=== PATIENT | male | born 1970 | race Caucasian/White ===

== ENCOUNTER 2016-04-04 08:47 | Emergency (ER) | payer BC ==
[2016-04-04] MEDS ORDERED: HYDROmorphone 1 MG/ML 1 ML SYRINGE IVP STA (09:00)
[2016-04-04] MEDS ORDERED: SODIUM CHLORIDE 0.9% 1,000 ML IV STA (09:00)
[2016-04-04] MEDS ORDERED: ONDANSETRON 4 MG/2 ML VIAL IVP STA (09:00)
--- NOTE | 2016-04-04 09:03 | ED ---
General Adult HPI - General Chief complaint: Abdominal Pain Stated complaint: ABDOMINAL PAIN Time Seen by Provider: 04/04/16 08:54 Source: patient, RN notes reviewed, old records reviewed Mode of arrival: ambulatory Limitations: no limitations - History of Present Illness Initial comments: Patient 46-year-old male significant past medical history for diverticulitis, New's procedure and reversal, who presents emergency room today with a chief complaint of abdominal pain off and on over the last 5 weeks. Patient does admit to symptoms of feeling nauseated. States had diarrhea. States appetites been decreased but is trying to drink fluids. Admits to pain going across the lower abdomen that is crampy in nature worsened left lower quadrant. Patient currently rates it a 5/10. Admits to signs of blood in his stool. States bright red color off and on over the last 5 weeks. Patient states been trying follow-up with his family doctor but has been unable to see him due to the holidays. Patient does admit that he was seen here for the same complaint approximately 3 weeks ago. Patient states that seems like things just aren't getting any better. Patient denies any recent fever, chills, shortness of breath , chest pain, back pain, vomiting, numbness or tingling, dysuria or hematuria, constipation, headaches or visual changes, or any other complaints. - Related Data Previous Rx's Medication Instructions Recorded Ondansetron Odt [Zofran ODT] 4 mg PO Q8HR PRN #15 tab 03/21/16 Allergies Allergy/AdvReac Type Severity Reaction Status Date / Time No Known Allergies Allergy Verified 04/04/16 08:52 Review of Systems ROS Statement: Those systems with pertinent positive or pertinent negative responses have been documented in the HPI. ROS Other: All systems not noted in ROS Statement are negative. Past Medical History Past Medical History: Blood Disorder, GI Bleed, Musculoskeletal Disorder, Pulmonary Embolus (PE) Additional Past Medical History / Comment(s): perforated diverticuli with bowel resection/colostomy and recent colostomy reversal- pt still has shaniqua and [address], stoma ulcers, hereditary spherocytosis, herniated disc with surgery-less low back pain and less R leg sciatica since surgery. History of Any Multi-Drug Resistant Organisms: None Reported Past Surgical History: Appendectomy, Back Surgery, Bowel Resection, Cholecystectomy, Orthopedic Surgery Additional Past Surgical History / Comment(s): colonoscopies, bowel resection and colostomy due to ruptured diverticuli, 06/25/15 open colostomy reversal, splenectomy, 2014 lumbar laminectomy/discectomy L5-S1, right rotator cuff, left knee arthroscopy Past Anesthesia/Blood Transfusion Reactions: No Reported Reaction Additional Past Anesthesia/Blood Transfusion Reaction / Comment(s): Pt has received blood without reaction. Past Psychological History: No Psychological Hx Reported Additional Psychological History / Comment(s): Pt resides with his spouse and children. He is independent. He uses no assistive device. He does not currently drive due to recent surgery. Smoking Status: Never smoker Past Alcohol Use History: Occasional Past Drug Use History: None Reported - Past Family History Father Family Medical History: Blood Disorder Additional Family Medical History / Comment(s): Father had spherocytosis. He had leg ulcers and at age 44 yrs. Mother Additional Family Medical History / Comment(s): Mother has colitis. She is living. Sister(s) Family Medical History: Blood Disorder, Deep Vein Thrombosis (DVT) Additional Family Medical History / Comment(s): Sister had blood clot and was recently found to have elevated factor 8 General Exam - General Exam Comments Initial Comments: General: The patient is awake and alert, in no distress, and does not appear acutely ill. Eye: Pupils are equal, round and reactive to light, extra-ocular movements are intact. No nystagmus. There is normal conjunctiva bilaterally. No signs of icterus. Ears, nose, mouth and throat: There are moist mucous membranes and no oral lesions. Neck: The neck is supple, there is no tenderness or JVD. Cardiovascular: There is a regular rate and rhythm. No murmur, rub or gallop is appreciated. Respiratory: Lungs are clear to auscultation, respirations are non-labored, breath sounds are equal. No wheezes, stridor, rales, or rhonchi. Gastrointestinal: Normal appearance of the abdomen. Bowel sounds are normal. Patient does have tenderness left lower quadrant. No rebound tenderness. No guarding. No CVA tenderness. Musculoskeletal: Normal ROM, no tenderness. Strength 5/5. Sensation intact. Pulses equal bilaterally 2+. Neurological: A&O x 3. CN II-XII intact, There are no obvious motor or sensory deficits. Coordination appears grossly intact. Speech is normal. Skin: Skin is warm and dry and no rashes or lesions are noted. Psychiatric: Cooperative, appropriate mood & affect, normal judgment. Limitations: no limitations Course Vital Signs 04/04/16 08:48 Temperature 97.0 F L Pulse Rate 87 Respiratory 18 Rate Blood Pressure 134/78 O2 Sat by Pulse 98 Oximetry Medical Decision Making - Medical Decision Making Patient reexamined at this time shows no signs of distress. He is resting comfortably in the stretcher. His labs been reviewed and also with recent visits the hospital reviewed. Labs are unremarkable. Options were discussed patient about CT of the abdomen is states that the symptoms have been consistent over the last 5 weeks. Does have a history of diverticulitis. States he feels like something is wrong. Risk versus benefits were discussed. Patient states he would like to have CT performed. CAT scan was performed here in the emergency room which shows no acute findings for his symptoms. Was discussed with patient about following up with his family doctor and surgeon. Was discussed about following up for colonoscopy. At this time patient's vitals are stable. Labs stable. Patient will be discharged home advised follow -up. Advised return if any symptoms increase or worsen. - Lab Data Result diagrams: 04/04/16 09:08 04/04/16 09:08 Lab Results 04/04/16 04/04/16 04/04/16 Range/Units 09:08 09:08 09:08 WBC 6.5 (3.8-10.6) k/uL RBC 5.64 (4.30-5.90) m/uL Hgb 17.8 H (13.0-17.5) gm/dL Hct 46.8 (39.0-53.0) % MCV 83.0 (80.0-100.0) fL MCH 31.5 (25.0-35.0) pg MCHC 38.0 H (31.0-37.0) g/dL RDW 13.6 (11.5-15.5) % Plt Count 391 (150-450) k/uL Neutrophils % 64 % Lymphocytes % 19 % Monocytes % 9 % Eosinophils % 4 % Basophils % 1 % Neutrophils # 4.2 (1.3-7.7) k/uL Lymphocytes # 1.2 (1.0-4.8) k/uL Monocytes # 0.6 (0-1.0) k/uL Eosinophils # 0.2 (0-0.7) k/uL Basophils # 0.1 (0-0.2) k/uL Hyperchromasia Marked Sodium 144 (137-145) mmol/L Potassium 4.4 (3.5-5.1) mmol/L Chloride 104 (98-107) mmol/L Carbon Dioxide 27 (22-30) mmol/L Anion Gap 13 mmol/L BUN 15 (9-20) mg/dL Creatinine 0.89 (0.66-1.25) mg/dL Est GFR (MDRD) Af Amer >60 (>60 ml/min/1.73 sqM) Est GFR (MDRD) Non-Af >60 (>60 ml/min/1.73 sqM) Glucose 93 (74-99) mg/dL Plasma Lactic Acid Matt 1.1 (0.7-2.0) mmol/L Calcium 9.8 (8.4-10.2) mg/dL Total Bilirubin 5.1 H (0.2-1.3) mg/dL AST 28 (17-59) U/L ALT 40 (21-72) U/L Alkaline Phosphatase 66 (38-126) U/L Total Protein 8.2 (6.3-8.2) g/dL Albumin 4.8 (3.5-5.0) g/dL Amylase 52 (30-110) U/L Lipase 41 (23-300) U/L Urine Color Urine Appearance (Clear) Urine pH (5.0-8.0) Ur Specific [place] (1.001-1.035) Urine Protein (Negative) Urine Glucose (UA) (Negative) Urine Ketones (Negative) Urine Blood (Negative) Urine Nitrate (Negative) Urine Bilirubin (Negative) Urine Urobilinogen (<2.0) mg/dL Ur Leukocyte Esterase (Negative) 04/04/16 Range/Units 09:44 WBC (3.8-10.6) k/uL RBC (4.30-5.90) m/uL Hgb (13.0-17.5) gm/dL Hct (39.0-53.0) % MCV (80.0-100.0) fL MCH (25.0-35.0) pg MCHC (31.0-37.0) g/dL RDW (11.5-15.5) % Plt Count (150-450) k/uL Neutrophils % % Lymphocytes % % Monocytes % % Eosinophils % % Basophils % % Neutrophils # (1.3-7.7) k/uL Lymphocytes # (1.0-4.8) k/uL Monocytes # (0-1.0) k/uL Eosinophils # (0-0.7) k/uL Basophils # (0-0.2) k/uL Hyperchromasia Sodium (137-145) mmol/L Potassium (3.5-5.1) mmol/L Chloride (98-107) mmol/L Carbon Dioxide (22-30) mmol/L Anion Gap mmol/L BUN (9-20) mg/dL Creatinine (0.66-1.25) mg/dL Est GFR (MDRD) Af Amer (>60 ml/min/1.73 sqM) Est GFR (MDRD) Non-Af (>60 ml/min/1.73 sqM) Glucose (74-99) mg/dL Plasma Lactic Acid Matt (0.7-2.0) mmol/L Calcium (8.4-10.2) mg/dL Total Bilirubin (0.2-1.3) mg/dL AST (17-59) U/L ALT (21-72) U/L Alkaline Phosphatase (38-126) U/L Total Protein (6.3-8.2) g/dL Albumin (3.5-5.0) g/dL Amylase (30-110) U/L Lipase (23-300) U/L Urine Color Light Yellow Urine Appearance Clear (Clear) Urine pH 7.5 (5.0-8.0) Ur Specific [place] 1.006 (1.001-1.035) Urine Protein Negative (Negative) Urine Glucose (UA) Negative (Negative) Urine Ketones Negative (Negative) Urine Blood Negative (Negative) Urine Nitrate Negative (Negative) Urine Bilirubin Negative (Negative) Urine Urobilinogen <2.0 (<2.0) mg/dL Ur Leukocyte Esterase Negative (Negative) Disposition Clinical Impression: Abdominal pain Disposition: HOME SELF-CARE Condition: Good Instructions: Abdominal Pain (ED) Additional Instructions: Please follow-up the family doctor and surgeon as discussed. Please return here to emergency room if any symptoms increase or worsen or for any other concerns. Time of Disposition: 10:55
[2016-04-04 09:46] LABS: ALT 40 U/L (21-72); AST 28 U/L (17-59); Alkaline Phosphatase 66 U/L (38-126); Amylase 52 U/L (30-110); Anion Gap 13 mmol/L; Blood Urea Nitrogen 15 mg/dL (9-20); Calcium 9.8 mg/dL (8.4-10.2); Carbon Dioxide 27 mmol/L (22-30); Chloride 104 mmol/L (98-107); Glucose 93 mg/dL (74-99); Non-African American GFR(MDRD) >60 (>60 ml/min/1.73 sqM); Potassium 4.4 mmol/L (3.5-5.1); Sodium 144 mmol/L (137-145); Total Bilirubin 5.1 mg/dL (0.2-1.3); Total Protein 8.2 g/dL (6.3-8.2)
[2016-04-04 09:50] LABS: Basophils # (A) 0.1 k/uL (0-0.2); Basophils % (A) 1 %; CH 32.9; CHCM 39.7; Eosinophils # (A) 0.2 k/uL (0-0.7); Eosinophils % (A) 4 %; HCT 46.8 % (39.0-53.0); HGB 17.8 gm/dL (13.0-17.5); Hyperchromasia Marked; Luc # (Auto) 0.24; Luc % (Auto) 4; Lymphocytes # (A) 1.2 k/uL (1.0-4.8); Lymphocytes % (A) 19 %; MCH 31.5 pg (25.0-35.0); Mean Platelet Volume 6.6; Monocytes # (A) 0.6 k/uL (0-1.0); Monocytes % (A) 9 %; Neutrophils # (A) 4.2 k/uL (1.3-7.7); Neutrophils % (A) 64 %; RBC 5.64 m/uL (4.30-5.90); RDW 13.6 % (11.5-15.5); WBC 6.5 k/uL (3.8-10.6); WBC (Perox) 7.51
--- NOTE | 2016-04-04 09:52 | XR ---
EXAMINATION TYPE: XR KUB DATE OF EXAM: 04/04/2016 9:45 AM CLINICAL HISTORY: History of bowel resection presents with lower abdominal pain TECHNIQUE: 2 upright KUB images of the abdomen are obtained. COMPARISON: Abdominal x-ray March 21, 2016. FINDINGS: Gas is seen in nondistended stomach. Scattered gas is seen in non-distended small bowel lo ops. Gas and fecal material is seen in non-distended colon and rectum. Cholecystectomy clips are red emonstrated. There is no pneumoperitoneum or suspicious calcifications seen. Lung bases are clear. Os seous structures are intact. IMPRESSION: Overall nonobstructive bowel gas pattern.
[2016-04-04 09:54] LABS: Appearance,Urine Clear (Clear); Bilirubin,Urine Negative (Negative); Glucose,Urine (UA) Negative (Negative); Ketones,Urine Negative (Negative); Leukocyte Esterase,Urine Negative (Negative); Nitrite,Urine Negative (Negative); PH, Urine 7.5 (5.0-8.0); Protein,Urine Negative (Negative); Specific Gravity,Urine 1.006 (1.001-1.035); UA Billing (MACRO vs. MICRO) CHEM; Urobilinogen,Urine <2.0 mg/dL (<2.0)
[2016-04-04] MEDS ORDERED: RX INFO: IV CONTRAST WAS GIVEN 1 EACH MISC MISCELLANE PRN (10:03)
--- NOTE | 2016-04-04 10:53 | CT ---
EXAMINATION TYPE: CT abdomen pelvis w con DATE OF EXAM: 04/04/2016 10:30 AM COMPARISON: CT abdomen and pelvis December 18, 2015. HISTORY: History of diverticulitis presents with left lower quadrant pain Automated Exposure Control for Dose Reduction was Utilized. CONTRAST: CT scan of the abdomen and pelvis is performed without oral but with IV Contrast, patient injected w ith 100 mL of Omnipaque 300. FINDINGS: LUNG BASES: Dependent atelectatic change is present bilaterally. There is additional linear scarring or atelectasis posteriorly in the left lung base present. LIVER/GB: Cholecystectomy clips are redemonstrated. PANCREAS: No significant abnormality is seen. SPLEEN: Spleen is not visualized and likely surgically absent. ADRENALS: No significant abnormality is seen. KIDNEYS: No significant abnormality is seen. BOWEL: Evaluation of bowel is slightly suboptimal due to lack of enteric contrast. There is no signif icant small or large bowel dilatation. Surgical sutures from prior colon resection are seen in the le ft lower quadrant. There remains tortuous course at the anastomosis with a few remnant diverticula. T here is no evidence of inflammatory change at this time at this level. A few additional diverticula a re seen in the left colon without CT evidence for acute diverticulitis. PROSTATE/SEMINAL VESICLES: Occasional scattered pelvic phleboliths are seen. LYMPH NODES: No greater than 1cm abdominal or pelvic lymph nodes are appreciated. OSSEOUS STRUCTURES: No significant abnormality is seen. OTHER: There is persistent narrowneck fat-containing hernia left lateral mid abdominal wall on axial image 52. Possible spigelian type hernia though is felt slightly more medial in location. IMPRESSION: No significant new or acute finding is seen to account for patient's clinical symptoms. No CT evidence for acute diverticulitis currently.
[2016-04-04 11:09] VITALS: BP 118/70; PULSE 76; RESP 16; TEMP 97.9
== END 2016-04-04 11:09 | disposition home or self-care (01) ==
LOC: EC 08:47
DX: R10.9 Unspecified abdominal pain (principal); R11.0 Nausea; R19.7 Diarrhea, unspecified
CPT/HCPCS: 99285; 96374; 96375; 96361; 36415; 80053; 82150; 83605; 83690; 85025; 81003; 74000; 74177; J2405; J1170; Q9967

== ENCOUNTER 2017-02-13 10:11 | Day surgery (SDC) | payer BC ==
[2017-02-10 16:34] VITALS: BMI 25.4
[~2017-02-13 10:11] MED LIST: LACTATED RINGERS 1,000 ML IV SCH; LIDOCAINE 1% 20 ML VIAL (10MG/ML) FOR IV START INTRADERMA PRN
[2017-02-13 10:56] VITALS: TEMP 97.2
[2017-02-13] MEDS ORDERED: PROPOFOL 10 MG/ML 20 ML VIAL IV ONE (11:10)
--- NOTE | 2017-02-13 11:31 | P.PCN ---
Date of Procedure: 02/13/17 Procedure(s) Performed: BRIEF HISTORY: Patient is a 47-year-old pleasant white male, scheduled for an elective colonoscopy as a part of evaluation of rectal bleeding for the last 1 year duration. The patient underwent a sigmoid colectomy with colostomy for acute diverticulitis in March of 2015 and subsequently had a reversal performed in June 2015. For the last 1 year duration his been having intermittent rectal bleeding and lately almost on a daily basis. Usually has one bowel movement daily but small amount of blood and mucus in the stool. He was treated briefly with sulfasalazine for a few weeks with no help. Last colonoscopy done by , for in June 2015 just before the there was a colostomy was normal. Because of ongoing rectal bleeding is still for colonoscopy to evaluate further. PROCEDURE PERFORMED: Colonoscopywith snare polypectomy and cautery. PREOPERATIVE DIAGNOSIS: intermittent rectal bleeding for the last 1 year duration. IV sedation per Anesthesia. PROCEDURE: After informed consent was obtained, the patient, was brought into the endoscopy unit. IV sedation was administered by Anesthesia under continuous monitoring. Digital rectal examination was normal. Initially the Olympus CF- 160 flexible video colonoscope was then inserted in the rectum, gradually advanced into the cecum without any difficulty. Careful examination was performed as the scope was gradually being withdrawn. Ileocecal valve and the appendiceal orifice were visualized and appeared normal. Prep was excellent. Mucosa of the cecum, ascending colon, transverse colon, descending colon, appeared normal. The anastomosis from the previous sigmoid resection was located at 20 cm from the anal verge and at the anastomosis there was a 5 mm polyp noted that was removed by snare polypectomy. All of the anastomosis there was erosive friability noted but no active bleeding seen. Since this appeared to be the source of bleeding I proceeded with cautery using the Gold probe and a friable mucosa was cauterized. The rest of the sigmoid colon, and rectum appeared normal. scattered left sided diverticulosis seen.Retroflexion was performed in the rectum and no lesions were seen. The patient tolerated the procedure well. IMPRESSION: Friable mucosa along the sigmoid anastomosis which probably was the source of bleeding, status post cautery as described above 5 mm polyp at the anastomosis status post polypectomy Scattered right-sided diverticulosis RECOMMENDATIONS: Findings of this examination were discussed with the patient as well as his family. He was advised to follow with the biopsy results. He' ll be seen in office in a month..
[2017-02-13 11:49] VITALS: BP 95/56; PULSE 84; RESP 18
== END 2017-02-13 12:27 | disposition home or self-care (01) ==
LOC: ORWHC2ENDO 10:11
PROVIDERS: ATTEND Internal Medicine Gastroenterology
DX: K63.5 Polyp of colon (principal); K57.30 Diverticulosis of large intestine without perforation or abscess without bleeding; Z90.49 Acquired absence of other specified parts of digestive tract; Z87.19 Personal history of other diseases of the digestive system; Z86.711 Personal history of pulmonary embolism
CPT/HCPCS: 88305; 45385; 45388; J2704

== ENCOUNTER 2017-09-25 05:54 | Day surgery (SDC) | payer BC ==
[2017-09-21 12:59] VITALS: BMI 24.7
[~2017-09-25 05:54] MED LIST changes: +DEXAMETHASONE SOD PHOSPHATE 10 MG/ML 1 ML VIAL IV ONE; +HYDROmorphone 0.5 MG/0.5 ML SYRINGE IVP PRN; -LIDOCAINE 1% 20 ML VIAL (10MG/ML) FOR IV START INTRADERMA PRN; +ONDANSETRON 4 MG/2 ML VIAL IVP ONE; +ceFAZolin IN SWFI 2 GM/20 ML SYRINGE IVP ONE
[2017-09-25] MEDS ORDERED: LIDOCAINE 1% 20 ML VIAL (10MG/ML) FOR IV START INTRADERMA ONE (06:27)
--- NOTE | 2017-09-25 07:31 | P.GSHP ---
History of Present Illness H&P Date: 09/25/17 CHIEF COMPLAINT: Ventral hernia HISTORY OF PRESENT ILLNESS: The patient is a 47-year-old male who presents with a history of swelling and pain along the abdomen from a hernia. Now he presents for surgical intervention. PAST MEDICAL HISTORY: Please see list. PAST SURGICAL HISTORY: Please see list. MEDICATIONS: Please see list. ALLERGIES: Please see list. SOCIAL HISTORY: No illicit drug use FAMILY HISTORY: No reports of Crohn disease or ulcerative colitis. REVIEW OF ORGAN SYSTEMS: CONSTITUTIONAL: No reports of fevers or chills. No reports of weight loss despite prior attempts. GI: Denies any blood in stools or constipation. PHYSICAL EXAM: VITAL SIGNS: Stable GENERAL: Well-developed pleasant male in no acute distress. HEENT: No scleral icterus. Extraocular movements grossly intact. Moist buccal mucosa. NECK: Supple without lymphadenopathy. CHEST: Unlabored respirations. Equal bilateral excursions. CARDIOVASCULAR: Regular rate and rhythm. Distal 2+ pulses. ABDOMEN: Soft, nondistended. Palpable defect of the abdomen. No peritoneal signs. MUSCULOSKELETAL: No clubbing, cyanosis, or edema. ASSESSMENT: 1. Incisional ventral hernia PLAN: 1. Recommend proceeding with a robotic with the ventral hernia repair with mesh. 2. Benefits and risks of surgical intervention was discussed including possibility of open technique. 3. DVT prophylaxis. 4. Antibiotic prophylaxis. Past Medical History Past Medical History: Blood Disorder, GI Bleed, Musculoskeletal Disorder, Pulmonary Embolus (PE) Additional Past Medical History / Comment(s): hx. perforated diverticuli with bowel resection/colostomy and colostomy reversal, hereditary spherocytosis, pulmonary embolism after colostomy reversal 2016, recent intermittent rectal bleeding, cramping History of Any Multi-Drug Resistant Organisms: None Reported Past Surgical History: Appendectomy, Back Surgery, Bowel Resection, Cholecystectomy, Orthopedic Surgery Additional Past Surgical History / Comment(s): colonoscopies, bowel resection and colostomy due to ruptured diverticuli, 06/25/15 open colostomy reversal, splenectomy, 2013 lumbar laminectomy/discectomy L5-S1, right rotator cuff, left knee arthroscopy Past Anesthesia/Blood Transfusion Reactions: No Reported Reaction Additional Past Anesthesia/Blood Transfusion Reaction / Comment(s): Pt has received blood without reaction. Smoking Status: Never smoker - Past Family History Father Family Medical History: Blood Disorder Additional Family Medical History / Comment(s): Father had spherocytosis. He had leg ulcers and at age 44 yrs. Mother Additional Family Medical History / Comment(s): Mother has colitis. She is living. Sister(s) Family Medical History: Blood Disorder, Deep Vein Thrombosis (DVT) Additional Family Medical History / Comment(s): Sister had blood clot and was recently found to have elevated factor 8 Medications and Allergies Home Medications Medication Instructions Recorded Confirmed Type No Known Home Medications 02/10/17 09/21/17 History Allergies Allergy/AdvReac Type Severity Reaction Status Date / Time No Known Allergies Allergy Verified 09/21/17 12:46 Surgical - Exam Vital Signs Temp Pulse Resp BP Pulse Ox 97.2 F L 75 16 121/78 98 09/25/17 06:14 09/25/17 06:14 09/25/17 06:14 09/25/17 06:14 09/25/17 06:14
[2017-09-25] MEDS ORDERED: ROCURONIUM BROMIDE 10 MG/ML 10 ML VIAL IV ONE (07:32)
[2017-09-25] MEDS ORDERED: PROPOFOL 10 MG/ML 20 ML VIAL IV ONE (07:32)
[2017-09-25] MEDS ORDERED: HEPARIN SODIUM,PORCINE 5,000 UNIT/ML 1 ML VIAL ONE (07:32)
[2017-09-25] MEDS ORDERED: ROPIVACAINE 5 MG/ML 30 ML VIAL ONE (07:32)
[2017-09-25] MEDS ORDERED: GLYCOPYRROLATE 0.2 MG/ML 2 ML VIAL ONE (07:32)
[2017-09-25] MEDS ORDERED: fentaNYL (PF) 50 MCG/ML 2 ML AMP ONE (07:32)
[2017-09-25] MEDS ORDERED: MIDAZOLAM 2 MG/2 ML VIAL ONE (07:32)
[2017-09-25] MEDS ORDERED: SUCCINYLCHOLINE CHLORIDE 100 MG/5 ML SYR IV ONE (07:32)
[2017-09-25] MEDS ORDERED: LIDOCAINE 1% INJ 10MG/ML (20 ML MDV) ONE (07:32)
[2017-09-25] MEDS ORDERED: ceFAZolin 1,000 MG VIAL ONE (07:32)
[2017-09-25] MEDS ORDERED: BUPIVACAINE (PF) 0.5% 30 ML VIAL SQ ONE (08:06)
--- NOTE | 2017-09-25 10:17 | P.PCN ---
Date of Procedure: 09/25/17 Preoperative Diagnosis: Incarcerated incisional hernia left lower quadrant, history of multiple abdominal procedures Postoperative Diagnosis: Same, severe intra-abdominal adhesions, incarcerated incisional hernia initial left lower abdomen Procedure(s) Performed: Robotic system lysis of adhesions over 1 hour, robotic incisional hernia repair with fascial imbrication 3 without mesh Anesthesia: GONZALES, local Surgeon: Jyoti Daniels Estimated Blood Loss (ml): 10 Pathology: none sent Condition: stable Disposition: same day Operative Findings: 1. Severe intra-abdominal adhesions with initial trochars placed along the upper abdomen then repositioned along the right lateral abdominal wall 2. Extensive lysis of adhesions over 1 hour robotic-assisted approach, mesh repair prohibited given severe reaction to foreign body 3. Console time 80 minutes
[2017-09-25 10:27] VITALS: TEMP 97.9
[2017-09-25] MEDS ORDERED: HYDROcodone/APAP 5-325MG 1 EACH TAB PO ONE (12:19)
[2017-09-25 15:43] VITALS: BP 115/68; PULSE 82; RESP 18
--- NOTE | 2017-09-26 10:54 | P.ONQ ---
Anesthesiology Proc Note - PNB - Peripheral Nerve Block Performed Bilateral Rectus Abdominis Single Time Out Performed: Yes Procedure Start Time: 11:12 Procedure Stop Time: :20 Indication: Acute Post-Operative Pain, Requested by physician Sedation Type: Sedate with meaningful contact maintained Preparation: Sterile Prep Position: Supine Needle Size: 50mm (2") Needle Gauge: 21 Technique: Ultrasound Injectate: 0.5% Ropivacaine (see comment for volume) (ropi .5% 30cc) Blood Aspirated: No Pain Paresthesia on Injection Noted: No Resistance on Injection: Normal Events: Uneventful and Well Tolerated
== END 2017-09-25 15:53 | disposition home or self-care (01) ==
LOC: OR 05:54
PROVIDERS: ATTEND Surgery Plastic and Reconstructive Surgery
DX: K43.0 Incisional hernia with obstruction, without gangrene (principal); K66.0 Peritoneal adhesions (postprocedural) (postinfection); Z86.711 Personal history of pulmonary embolism; D58.0 Hereditary spherocytosis
CPT/HCPCS: 49655; 64488; S2900; 86850; 86900; 86901

== ENCOUNTER 2017-10-04 08:23 | Observation (INO) | payer BC ==
[2017-10-04] MEDS ORDERED: HEPARIN SODIUM,PORCINE 5,000 UNIT/ML 1 ML VIAL IV ONE (08:42)
[2017-10-04] MEDS ORDERED: HEPARIN SOD,PORK IN 0.45% NACL 25,000 UNIT in 0.45% NACL 1 500ML.BAG IV SCH ×2 (08:45→10:30)
--- NOTE | 2017-10-04 08:45 | ED ---
General Adult HPI - General Chief complaint: Chest Pain Stated complaint: CHEST PAIN POST OP HX PE Time Seen by Provider: 10/04/17 08:25 Source: patient, RN notes reviewed Mode of arrival: ambulatory Limitations: no limitations - History of Present Illness Initial comments: This is a 47-year-old male who presents to the emergency department with past medical history significant for PE. Patient states he had a surgery about 7 days ago for incisional hernia. Patient states yesterday he started having some left-sided chest pain with some difficulty breathing. Patient states he woke up this morning the pain was more significant sharp in the shortness of breath was worse. Patient denies any fever chills or cough patient denies any palpitations. Patient states it's reminiscent of his previous PE. Patient denies any abdominal pain except for the surgery was done but he states that is unchanged since the surgery and it is slowly improving. Patient denies any vomiting or diarrhea. Patient denies any lightheadedness dizziness or nursing about so. Patient denies any calf pain or leg swelling. - Related Data Previous Rx's Medication Instructions Recorded HYDROcodone/APAP 5-325MG [[place] 1 tab PO Q4HR PRN 3 Days #18 tab 09/25/17 5-325] Allergies Allergy/AdvReac Type Severity Reaction Status Date / Time No Known Allergies Allergy Verified 10/04/17 08:28 Review of Systems ROS Statement: Those systems with pertinent positive or pertinent negative responses have been documented in the HPI. ROS Other: All systems not noted in ROS Statement are negative. Past Medical History Past Medical History: Blood Disorder, GI Bleed, Musculoskeletal Disorder, Pulmonary Embolus (PE) Additional Past Medical History / Comment(s): hx. perforated diverticuli with bowel resection/colostomy and colostomy reversal, hereditary spherocytosis, pulmonary embolism after colostomy reversal 2016, recent intermittent rectal bleeding, cramping History of Any Multi-Drug Resistant Organisms: None Reported Past Surgical History: Appendectomy, Back Surgery, Bowel Resection, Cholecystectomy, Hernia Repair, Orthopedic Surgery Additional Past Surgical History / Comment(s): colonoscopies, bowel resection and colostomy due to ruptured diverticuli, 06/25/15 open colostomy reversal, splenectomy, 2013 lumbar laminectomy/discectomy L5-S1, right rotator cuff, left knee arthroscopy Past Anesthesia/Blood Transfusion Reactions: No Reported Reaction Additional Past Anesthesia/Blood Transfusion Reaction / Comment(s): Pt has received blood without reaction. Past Psychological History: No Psychological Hx Reported Smoking Status: Never smoker Past Alcohol Use History: None Reported Past Drug Use History: None Reported - Past Family History Father Family Medical History: Blood Disorder Additional Family Medical History / Comment(s): Father had spherocytosis. He had leg ulcers and at age 44 yrs. Mother Additional Family Medical History / Comment(s): Mother has colitis. She is living. Sister(s) Family Medical History: Blood Disorder, Deep Vein Thrombosis (DVT) Additional Family Medical History / Comment(s): Sister had blood clot and was recently found to have elevated factor 8 General Exam - General Exam Comments Initial Comments: GENERAL: Patient is well-developed and well-nourished. Patient is nontoxic and well- hydrated and is in mild distress. ENT: Neck is soft and supple. No significant lymphadenopathy is noted. Oropharynx is clear. Moist mucous membranes. Neck has full range of motion without eliciting any pain. EYES: The sclera were anicteric and conjunctiva were pink and moist. Extraocular movements were intact and pupils were equal round and reactive to light. Eyelids were unremarkable. PULMONARY: Unlabored respirations. Good breath sounds bilaterally. No audible rales rhonchi or wheezing was noted. CARDIOVASCULAR: There is a regular rate and rhythm without any murmurs gallops or rubs. ABDOMEN: Mildly tender over the incision site. No palpable organomegaly was noted. There is no palpable pulsatile mass. SKIN: Skin is clear with no lesions or rashes and otherwise unremarkable. NEUROLOGIC: Patient is alert and oriented x3. Cranial nerves II through XII are grossly intact. Motor and sensory are also intact. Normal speech, volume and content. Symmetrical smile. MUSCULOSKELETAL: Normal extremities with adequate strength and full range of motion. No lower extremity swelling or edema. No calf tenderness. LYMPHATICS: No significant lymphadenopathy is noted PSYCHIATRIC: Normal psychiatric evaluation. Normal interpersonal interactions appears functionally intact in deals appropriately with others. No signs of depression. No signs of anxiety. Limitations: no limitations Course Vital Signs 10/04/17 10/04/17 08:25 09:44 Temperature 98.5 F Pulse Rate 82 77 Respiratory 18 16 Rate Blood Pressure 115/72 117/72 O2 Sat by Pulse 98 99 Oximetry Medical Decision Making - Medical Decision Making EKG shows normal sinus rhythm at 77 bpm OR interval 246 QRS is 82 QT interval 382 QTC is 432. Patient's EKG shows no ST segment elevation or depression or T wave abnormalities are noted. Computed tomography scan of the chest showed no pulmonary embolism. I reduce the heparin from high-dose to low-dose at this time. Patient continued to have some chest pain but did notice some relief with Nitropaste. I spoke with Dr. Gavin he agreed to admit the patient admitted the patient I wrote admitting orders and continue the heparin on the floor. And I consult cardiology - Lab Data Result diagrams: 10/04/17 08:47 10/04/17 08:47 Lab Results 10/04/17 10/04/17 10/04/17 Range/Units 08:47 08:47 08:47 WBC 7.5 (3.8-10.6) k/uL RBC 5.28 (4.30-5.90) m/uL Hgb 16.4 (13.0-17.5) gm/dL Hct 44.4 (39.0-53.0) % MCV 84.1 (80.0-100.0) fL MCH 31.0 (25.0-35.0) pg MCHC 36.9 (31.0-37.0) g/dL RDW 13.3 (11.5-15.5) % Plt Count 472 H (150-450) k/uL Sodium 142 (137-145) mmol/L Potassium 4.5 (3.5-5.1) mmol/L Chloride 103 (98-107) mmol/L Carbon Dioxide 28 (22-30) mmol/L Anion Gap 11 mmol/L BUN 22 H (9-20) mg/dL Creatinine 0.77 (0.66-1.25) mg/dL Est GFR (CKD-EPI)AfAm >90 (>60 ml/min/1.73 sqM) Est GFR (CKD-EPI)NonAf >90 (>60 ml/min/1.73 sqM) Glucose 84 (74-99) mg/dL Calcium 9.7 (8.4-10.2) mg/dL Magnesium 2.1 (1.6-2.3) mg/dL Total Bilirubin 2.4 H (0.2-1.3) mg/dL AST 27 (17-59) U/L ALT 42 (21-72) U/L Alkaline Phosphatase 85 (38-126) U/L Total Creatine Kinase 123 (55-170) U/L CK-MB (CK-2) 2.0 (0.0-2.4) ng/mL CK-MB (CK-2) Rel Index 1.6 Troponin I <0.012 (0.000-0.034) ng/mL NT-Pro-B Natriuret Pep pg/mL Total Protein 7.8 (6.3-8.2) g/dL Albumin 4.4 (3.5-5.0) g/dL 10/04/17 Range/Units 08:47 WBC (3.8-10.6) k/uL RBC (4.30-5.90) m/uL Hgb (13.0-17.5) gm/dL Hct (39.0-53.0) % MCV (80.0-100.0) fL MCH (25.0-35.0) pg MCHC (31.0-37.0) g/dL RDW (11.5-15.5) % Plt Count (150-450) k/uL Sodium (137-145) mmol/L Potassium (3.5-5.1) mmol/L Chloride (98-107) mmol/L Carbon Dioxide (22-30) mmol/L Anion Gap mmol/L BUN (9-20) mg/dL Creatinine (0.66-1.25) mg/dL Est GFR (CKD-EPI)AfAm (>60 ml/min/1.73 sqM) Est GFR (CKD-EPI)NonAf (>60 ml/min/1.73 sqM) Glucose (74-99) mg/dL Calcium (8.4-10.2) mg/dL Magnesium (1.6-2.3) mg/dL Total Bilirubin (0.2-1.3) mg/dL AST (17-59) U/L ALT (21-72) U/L Alkaline Phosphatase (38-126) U/L Total Creatine Kinase (55-170) U/L CK-MB (CK-2) (0.0-2.4) ng/mL CK-MB (CK-2) Rel Index Troponin I (0.000-0.034) ng/mL NT-Pro-B Natriuret Pep 31 pg/mL Total Protein (6.3-8.2) g/dL Albumin (3.5-5.0) g/dL Critical Care Time Critical Care Time: Yes Total Critical Care Time: 35 Disposition Clinical Impression: Unstable angina pectoris Disposition: ADMITTED IP TO THIS HOSP Referrals: Cesar Car MD [Primary Care Provider] - 1-2 days Time of Disposition: 10:48
[2017-10-04 09:09] LABS: HCT 44.4 % (39.0-53.0); HGB 16.4 gm/dL (13.0-17.5); Hyperchromasia Marked; MCHC 36.9 g/dL (31.0-37.0); MCV 84.1 fL (80.0-100.0); Mean Platelet Volume 6.1; Platelet Count 472 k/uL (150-450); RBC 5.28 m/uL (4.30-5.90); RDW 13.3 % (11.5-15.5); WBC 7.5 k/uL (3.8-10.6)
[2017-10-04 09:16] LABS: Creatine Kinase 123 U/L (55-170)
[2017-10-04 09:17] LABS: Partial Thromboplastin Time 24.5 sec (22.0-30.0); Prothrombin Time 9.6 sec (9.0-12.0)
[2017-10-04 09:18] LABS: ALT 42 U/L (21-72); AST 27 U/L (17-59); Albumin 4.4 g/dL (3.5-5.0); Alkaline Phosphatase 85 U/L (38-126); Anion Gap 11 mmol/L; Blood Urea Nitrogen 22 mg/dL (9-20); Calcium 9.7 mg/dL (8.4-10.2); Carbon Dioxide 28 mmol/L (22-30); Chloride 103 mmol/L (98-107); Glucose 84 mg/dL (74-99); Magnesium 2.1 mg/dL (1.6-2.3); Potassium 4.5 mmol/L (3.5-5.1); Sodium 142 mmol/L (137-145); Total Bilirubin 2.4 mg/dL (0.2-1.3); Total Protein 7.8 g/dL (6.3-8.2)
[2017-10-04 09:29] LABS: Troponin I <0.012 ng/mL (0.000-0.034)
--- NOTE | 2017-10-04 10:01 | CT ---
EXAMINATION TYPE: CT chest angio for PE DATE OF EXAM: 10/04/2017 COMPARISON: Previous study dated 09/04/2015 HISTORY: Chest pain and SOB CT DLP: 301.4 mGycm Automated exposure control for dose reduction was used. CONTRAST: CT Chest for pulmonary embolism performed with with IV Contrast, patient injected with 74 mL of Isovu e 370. FINDINGS: There is dependent atelectasis within the dependent portions of both lungs. The lungs are o therwise clear. There is no significant axillary, mediastinal or hilar adenopathy. There is no evidence of pulmonary embolus. The aorta is normal in caliber without evidence of dissection. The heart is upper limits of normal in size. There is no pleural or pericardial fluid. Within the abdomen, the gallbladder is been removed. The spleen is not identified. No osseous lesion is seen. There is postsurgical change present in the right shoulder. IMPRESSION: 1. THIS EXAMINATION IS NEGATIVE FOR PULMONARY EMBOLUS. 2. POSTSURGICAL CHANGE.
[2017-10-04 10:45] LABS: Eosinophils # (M) 0.45 k/uL (0-0.7); Lymphocytes # (M) 1.43 k/uL (1.0-4.8); Neutrophils # (M) 5.03 k/uL (1.3-7.7); Neutrophils % (M) 67 %; Nucleated Red Blood Cells 0 /100 WBC (0-0); Total Cells Counted 100
[2017-10-04] MEDS ORDERED: NITROGLYCERIN SL TABS 0.4 MG TAB SUBLINGUAL PRN (10:48)
[2017-10-04 10:51] LABS: Howell-Jolly Bodies Present; Spherocytes Present
[2017-10-04 10:55] LABS: D-Dimer 1.94 mg/L FEU (<0.60)
--- NOTE | 2017-10-04 11:37 | P.HPIM ---
History of Present Illness H&P Date: 10/04/17 Chief Complaint: Chest pain The patient is a 42-year-old male with a past medical history of provoked pulmonary embolism who presents to the ER with chief complaint of left- sided moderate chest pain described as sharp and intermittent pressure-like sensation, without any radiation with associated shortness of breath, without diaphoresis nausea or vomiting. The patient denies any specific precipitating or alleviating factors. Patient unable to correlate if this is related to exertion. The patient presented due to concern that he might be having a recurrence of a PE that he sustained postoperatively a few years ago, he denies any lower extremity swelling, denies any anginal symptoms prior to yesterday. He reports having a recent robotic ventral hernia repair surgery performed by Dr. Thompson last Thursday. Since then the patient has had an abdominal binder that he thinks is restricting his breathing. He reports this chest discomfort to being slightly under his left breast and above the binder. Patient denies any history of smoking, reports a family history of heart disease. In the ER he had a comprehensive workup, his EKG was negative for any sedation of ischemia, showed normal sinus rhythm with no ST segment elevation depression or any T wave abnormalities, troponin was less than 0.012. His d-dimer was elevated at 1.94 subsequent CTA of the chest was negative for pulmonary embolism. He was given aspirin and started on heparin drip and recommended for admission to rule out ACS Past Medical History Past Medical History: Blood Disorder, GI Bleed, Musculoskeletal Disorder, Pulmonary Embolus (PE) Additional Past Medical History / Comment(s): hx. perforated diverticuli with bowel resection/colostomy and colostomy reversal, hereditary spherocytosis, pulmonary embolism after colostomy reversal 2015, recent intermittent rectal bleeding, cramping History of Any Multi-Drug Resistant Organisms: None Reported Past Surgical History: Appendectomy, Back Surgery, Bowel Resection, Cholecystectomy, Hernia Repair, Orthopedic Surgery Additional Past Surgical History / Comment(s): colonoscopies, bowel resection and colostomy due to ruptured diverticuli, 06/25/15 open colostomy reversal, splenectomy, 2013 lumbar laminectomy/discectomy L5-S1, right rotator cuff, left knee arthroscopy Past Anesthesia/Blood Transfusion Reactions: No Reported Reaction Additional Past Anesthesia/Blood Transfusion Reaction / Comment(s): Pt has received blood without reaction. Past Psychological History: No Psychological Hx Reported Smoking Status: Never smoker Past Alcohol Use History: None Reported Past Drug Use History: None Reported - Past Family History Father Family Medical History: Blood Disorder Additional Family Medical History / Comment(s): Father had spherocytosis. He had leg ulcers and at age 44 yrs. Mother Additional Family Medical History / Comment(s): Mother has colitis. She is living. Sister(s) Family Medical History: Blood Disorder, Deep Vein Thrombosis (DVT) Additional Family Medical History / Comment(s): Sister had blood clot and was recently found to have elevated factor 8 Medications and Allergies Home Medications Medication Instructions Recorded Confirmed Type HYDROcodone/APAP 5-325MG [[place] 1 tab PO Q4HR PRN 3 Days #18 tab 09/25/17 Rx 5-325] Naproxen Sodium [Aleve] 220 mg PO BID PRN 10/04/17 10/04/17 History Allergies Allergy/AdvReac Type Severity Reaction Status Date / Time No Known Allergies Allergy Verified 10/04/17 11:04 Physical Exam Vitals: Vital Signs Temp Pulse Resp BP Pulse Ox 10/04/17 10:56 97.9 F 73 18 119/66 99 10/04/17 09:44 77 16 117/72 99 10/04/17 08:25 98.5 F 82 18 115/72 98 Intake and Output 10/03/17 10/04/17 10/04/17 22:59 06:59 14:59 Other: Weight 99.79 kg Constitutional: No acute distress, conversant, pleasant Eyes: Anicteric sclerae, moist conjunctiva, no lid-lag, PERRLA ENMT: NC/AT,Oropharynx clear, no erythema, exudates Neck:Supple, FROM, no masses, or JVD, No carotid bruits; No thyromegaly Lungs: Clear to auscultation, Clear to percussion, Normal respiratory effort, no accessory muscle use Cardiovascular: Heart regular in rate and rhythm, No murmurs, gallops, or rubs no peripheral edema Abdominal: Soft tender to palpation by incision sites and in the left lower quadrant, nom distended, no guarding, no rebound or rigidity, Normoactive bowel sounds No hepatomegaly, No splenomegaly, No palpable mass No abdominal wall hernia noted, abdominal binder in place Skin: Normal temperature, tone, texture, turgor, No induration No subcutaneous nodules, No rash, lesions, No ulcers Extremities:No digital cyanosis No clubbing, Pedal pulses intact and symmetrical Radial pulses intact and symmetrical Normal gait and station, No calf tenderness Psychiatric: Alert and oriented to person, place and time, Appropriate affect Intact judgement Neuro: Muscles Strength 5/5 in all 4 extremities, Sensation to light touch grossly present throughout, Cranial nerves II-XII grossly intact. No focal sensory deficits Results CBC & Chem 7: 10/04/17 08:47 10/04/17 08:47 Labs: Abnormal Lab Results - Last 24 Hours (Table) 10/04/17 10/04/17 10/04/17 Range/Units 08:47 08:47 08:47 Plt Count 472 H (150-450) k/uL D-Dimer 1.94 H (<0.60) mg/L FEU BUN 22 H (9-20) mg/dL Total Bilirubin 2.4 H (0.2-1.3) mg/dL Assessment and Plan (1) Atypical chest pain Current Visit: Yes Status: Acute Code(s): R07.89 - OTHER CHEST PAIN SNOMED Code(s): 035766007 (2) Status post laparoscopic hernia repair Current Visit: Yes Status: Acute Code(s): Z98.890 - OTHER SPECIFIED POSTPROCEDURAL STATES; Z87.19 - PERSONAL HISTORY OF OTHER DISEASES OF THE DIGESTIVE SYSTEM SNOMED Code(s): 34789412148158 Plan: Patient is placed in observation anticipate a less than 2 midnight stay for atypical chest pain with need to rule out acute coronary syndrome, patient has limited risk factors for coronary disease, initial EKG and cardiac enzymes are negative for incision of acute ischemia, plan to cycle troponins. Continue with routine chest pain orders with antiplatelet therapy aspirin, along with morphine for pain we'll check a lipid panel, echocardiogram consult cardiology. Patient was initiated on heparin in the ED, we'll follow cardiology recommendations. Continue to monitor patient's clinical course
--- NOTE | 2017-10-04 12:33 | P.CRDCN ---
History of Present Illness Consult date: 10/04/17 Chief complaint: Chest discomfort History of present illness: This is a pleasant 47-year-old gentleman with a past medical history significant for PE about two years ago which was provoked PE after abdominal surgery presented to the hospital complaining of chest discomfort. The patient underwent 2 days ago ventral hernia surgery which was uneventful. He presented to the emergency room earlier today complaining of discomfort in the mid of the chest as a sharp/dull of discomfort without any radiation to the arm or neck or shoulders and without any associated symptoms of shortness of breath, dizziness or lightheadedness, nausea or vomiting, or sweating. The symptoms reminded him with what he had 2 years ago when he was diagnosed with a PE. For that reason he presented to the emergency room. The patient underwent a computed tomography scan of the chest which showed no PE. The EKG showed sinus rhythm without any ischemic changes. We have only one set of enzymes came in to be unremarkable. He reports no history of coronary artery disease and never seen any barback in the past. No diabetes, hypertension or dyslipidemia. The patient does not smoke and there is no family history of coronary artery disease. Past Medical History Past Medical History: Blood Disorder, GI Bleed, Musculoskeletal Disorder, Pulmonary Embolus (PE) Additional Past Medical History / Comment(s): hx. perforated diverticuli with bowel resection/colostomy and colostomy reversal, hereditary spherocytosis, pulmonary embolism after colostomy reversal 2015, recent intermittent rectal bleeding, cramping History of Any Multi-Drug Resistant Organisms: None Reported Past Surgical History: Appendectomy, Back Surgery, Bowel Resection, Cholecystectomy, Hernia Repair, Orthopedic Surgery Additional Past Surgical History / Comment(s): colonoscopies, bowel resection and colostomy due to ruptured diverticuli, 06/25/15 open colostomy reversal, splenectomy, 2013 lumbar laminectomy/discectomy L5-S1, right rotator cuff, left knee arthroscopy Past Anesthesia/Blood Transfusion Reactions: No Reported Reaction Additional Past Anesthesia/Blood Transfusion Reaction / Comment(s): Pt has received blood without reaction. Past Psychological History: No Psychological Hx Reported Smoking Status: Never smoker Past Alcohol Use History: None Reported Past Drug Use History: None Reported - Past Family History Father Family Medical History: Blood Disorder Additional Family Medical History / Comment(s): Father had spherocytosis. He had leg ulcers and at age 44 yrs. Mother Additional Family Medical History / Comment(s): Mother has colitis. She is living. Sister(s) Family Medical History: Blood Disorder, Deep Vein Thrombosis (DVT) Additional Family Medical History / Comment(s): Sister had blood clot and was recently found to have elevated factor 8 Medications and Allergies Home Medications Medication Instructions Recorded Confirmed Type HYDROcodone/APAP 5-325MG [[place] 1 tab PO Q4HR PRN 3 Days #18 tab 09/25/17 Rx 5-325] Naproxen Sodium [Aleve] 220 mg PO BID PRN 10/04/17 10/04/17 History Allergies Allergy/AdvReac Type Severity Reaction Status Date / Time No Known Allergies Allergy Verified 10/04/17 11:04 Physical Exam Vitals: Vital Signs Temp Pulse Pulse Resp BP BP Pulse Ox 10/04/17 11:44 97.9 F 72 18 110/71 98 10/04/17 10:56 97.9 F 73 18 119/66 99 10/04/17 09:44 77 16 117/72 99 10/04/17 08:25 98.5 F 82 18 115/72 98 Intake and Output 10/03/17 10/04/17 10/04/17 22:59 06:59 14:59 Other: Weight 97 kg - Constitutional General appearance: no acute distress - Respiratory Respiratory: bilateral: CTA - Cardiovascular Rhythm: regular Heart sounds: normal: S1, S2 Results 10/04/17 08:47 10/04/17 08:47 Cardiac Enzymes 10/04/17 10/04/17 Range/Units 08:47 08:47 AST 27 (17-59) U/L CK-MB (CK-2) 2.0 (0.0-2.4) ng/mL Troponin I <0.012 (0.000-0.034) ng/mL Coagulation 10/04/17 Range/Units 08:47 PT 9.6 (9.0-12.0) sec APTT 24.5 (22.0-30.0) sec CBC 10/04/17 Range/Units 08:47 WBC 7.5 (3.8-10.6) k/uL RBC 5.28 (4.30-5.90) m/uL Hgb 16.4 (13.0-17.5) gm/dL Hct 44.4 (39.0-53.0) % Plt Count 472 H (150-450) k/uL Comprehensive Metabolic Panel 10/04/17 Range/Units 08:47 Sodium 142 (137-145) mmol/L Potassium 4.5 (3.5-5.1) mmol/L Chloride 103 (98-107) mmol/L Carbon Dioxide 28 (22-30) mmol/L BUN 22 H (9-20) mg/dL Creatinine 0.77 (0.66-1.25) mg/dL Glucose 84 (74-99) mg/dL Calcium 9.7 (8.4-10.2) mg/dL AST 27 (17-59) U/L ALT 42 (21-72) U/L Alkaline Phosphatase 85 (38-126) U/L Total Protein 7.8 (6.3-8.2) g/dL Albumin 4.4 (3.5-5.0) g/dL Current Medications Generic Name Dose Route Start Last Admin Trade Name Freq PRN Reason Stop Dose Admin Aspirin 325 mg 10/05/17 09:00 Aspirin PO DAILY [facility] Heparin Sodium/Sodium Chloride 500 mls @ 19.95 mls/hr 10/04/17 10:30 10:48 25,000 unit/ Sodium Chloride IV 10 units/kg/hr .Q24H ANGY 19.95 mls/hr Administration Protocol 10 UNITS/KG/HR Nitroglycerin 1 inch 10/04/17 12:00 Nitro-Bid Oint TOPICAL Q6HR [facility] Nitroglycerin 0.4 mg 10/04/17 10:48 Nitrostat SUBLINGUAL Q5M PRN Chest Pain Intake and Output 10/03/17 10/04/17 10/04/17 22:59 06:59 14:59 Other: Weight 97 kg Patient Weight 10/05/17 06:59 Weight 97 kg 10/04/17 08:47 10/04/17 08:47 Assessment and Plan Assessment: Assessment #1 atypical chest discomfort #2 history of PE in the past Plan #1 acute coronary syndrome to be ruled out. #2 we will follow-up with the serial cardiac enzymes #3 obtain an echocardiogram was Doppler #4 follow-up with the patient. Thank you for allowing us participate in his care
[2017-10-04 12:57] VITALS: BMI 24.7
[2017-10-04] MEDS: NITROGLYCERIN OINT 1 INCH/GM PACKET TOPICAL SCH ×2 (14:17→18:09)
[2017-10-04 15:03] LABS: Creatine Kinase 107 U/L (55-170)
[2017-10-04 15:15] LABS: Troponin I <0.012 ng/mL (0.000-0.034)
[2017-10-04 21:21] LABS: Creatine Kinase 107 U/L (55-170)
[2017-10-04 21:34] LABS: Troponin I <0.012 ng/mL (0.000-0.034)
[2017-10-05] MEDS: NITROGLYCERIN OINT 1 INCH/GM PACKET TOPICAL SCH ×3 (00:08→12:10)
[2017-10-05 00:25] LABS: Cholesterol 180 mg/dL (<200); HDL Cholesterol 54 mg/dL (40-60); LDL Cholesterol,Calculated 113 mg/dL (0-99); Triglycerides 65 mg/dL (<150)
[2017-10-05] MEDS ORDERED: ASPIRIN 325 MG TAB PO SCH (09:00)
[2017-10-05 09:20] LABS: ALT 42 U/L (21-72); AST 28 U/L (17-59); Albumin 4.4 g/dL (3.5-5.0); Alkaline Phosphatase 79 U/L (38-126); Anion Gap 10 mmol/L; Blood Urea Nitrogen 19 mg/dL (9-20); Calcium 9.6 mg/dL (8.4-10.2); Carbon Dioxide 27 mmol/L (22-30); Chloride 102 mmol/L (98-107); Glucose 88 mg/dL (74-99); Sodium 139 mmol/L (137-145); Total Bilirubin 3.2 mg/dL (0.2-1.3); Total Protein 7.4 g/dL (6.3-8.2)
--- NOTE | 2017-10-05 15:18 | US ---
EXAMINATION TYPE: US liver DATE OF EXAM: 10/05/2017 COMPARISON: CT 04/04/2016, US 12/30/2013 CLINICAL HISTORY: elevated bilirubin. Patient had hernia repair about 1 week ago EXAM MEASUREMENTS: Liver Length: 15.0 cm Gallbladder Wall: Surgically absent CBD: 0.5 cm Right Kidney: 11.8 x 5.3 x 5.0 cm Pancreas: Obscured by bowel gas Liver: wnl Gallbladder: Surgically absent Evidence for sonographic Pappas's sign: No CBD: wnl Right Kidney: No hydronephrosis or masses seen There is no ascites. IMPRESSION: Postop changes
[2017-10-05 15:50] VITALS: BP 111/69; PULSE 82; RESP 18; TEMP 98.3
--- NOTE | 2017-10-05 16:25 | ECHOF ---
Referral Reason:Chest pain MEASUREMENTS -------- HEIGHT: 200.7 cm WEIGHT: 99.8 kg BP: 115/72 IVSd: 1.0 cm (0.6 - 1.1) LVIDd: 4.8 cm (3.9 - 5.3) LVPWd: 1.0 cm (0.6 - 1.1) IVSs: 1.6 cm LVIDs: 3.7 cm LVPWs: 1.8 cm LA Diam: 3.3 cm (2.7 - 3.8) RVIDd: 3.3 cm (< 3.3) LAESV Index (A-L): 20.86 ml/m Ao Diam: 3.8 cm (2.0 - 3.7) AV Cusp: 3.0 cm (1.5 - 2.6) MV E Pasha: 0.48 m/s MV DecT: 320 ms MV A Pasha: 0.51 m/s MV E/A Ratio: 0.95 RAP: 5.00 mmHg RVSP: 27.00 mmHg FINDINGS -------- Sinus rhythm. This was a technically good study. The left ventricular size is normal. Left ventricular wall thickness is normal. Overall left vent ricular systolic function is normal with, an EF between 55 - 60 %. The right ventricle is normal in size. Normal LA size by volume 22+/-6 ml/m2. The right atrium is normal in size. The aortic valve is trileaflet and appears structurally normal. There is trace mitral regurgitation. Mild tricuspid regurgitation present. Right ventricular systolic pressure is normal at < 35 mmHg. There is no pulmonic regurgitation present. The aortic root is dilated measuring 3.8cm. Normal inferior vena cava with normal inspiratory collapse consistent with estimated right atrial pre ssure of 5 mmHg. There is no pericardial effusion. CONCLUSIONS -------- 1. Sinus rhythm. 2. This was a technically good study. 3. The left ventricular size is normal. 4. Left ventricular wall thickness is normal. 5. Overall left ventricular systolic function is normal with, an EF between 55 - 60 %. 6. The right ventricle is normal in size. 7. Normal LA size by volume 22+/-6 ml/m2. 8. The right atrium is normal in size. 9. The aortic valve is trileaflet and appears structurally normal. 10. There is trace mitral regurgitation. 11. Mild tricuspid regurgitation present. 12. Right ventricular systolic pressure is normal at < 35 mmHg. 13. There is no pulmonic regurgitation present. 14. The aortic root is dilated measuring 3.8cm. 15. Normal inferior vena cava with normal inspiratory collapse consistent with estimated right atrial pressure of 5 mmHg. 16. There is no pericardial effusion. INTERNET NETWORK SPECIALIST: Renetta Fowler RDCS
--- NOTE | 2017-10-05 16:47 | P.DS ---
Providers Date of admission: 10/04/17 10:48 Expected date of discharge: 10/05/17 Attending physician: Yayo Larsen MD Consults: 10/04/17 10:48 Consult Physician Urgent Consulting Provider: [facility] Consult Reason/Comments: Unstable angina Do you want consulting provider notified?: Yes Primary care physician: Cesar Car [place] [facility] Course: Discharge diagnoses: -Noncardiac chest pain -Elevated bilirubin -History of pulmonary embolism - Dilated Aortic root 3.8 CM Hospital course: Patient is a 47-year-old male past medical history of pulmonary embolism, ruptured diverticuli requiring multiple surgeries, and hereditary serous cytosis who presented in the hospital with complaints of chest pain. In the ER he underwent an extensive evaluation. His EKG and troponins were within normal limits. He underwent a CTA of the chest which was negative for PE. He was admitted for observation. His troponins remained negative. He was noted to have slightly elevated bilirubin and he had a negative liver ultrasound, patient has prior cholecystectomy. He did not have any recurrent chest pain during hospitalization was feeling back to his normal self. He was seen by cardiology who recommended echocardiogram. This showed preserved ejection fraction of 55-60% with a mildly dilated aortic root at 3.8 cm which may be within normal when he consider his body surface area. He was determined stable for discharge. He'll follow up with Dr. Velazquez in 1 week. He will follow-up with Dr. Car in 1 week. I discussed with him considering an outpatient stress test should his chest pain recur. He will resume his prior restrictions for his recent surgery. All questions answered to the best of my ability. Patient seen and examined at bedside. No recurrent chest pain, shortness of breath, nausea, or abdominal pain. Vital signs reviewed and stable. General: non toxic, no distress, appears at stated age Derm: warm, dry Head: atraumatic, normocephalic, symmetric Eyes: EOMI, no lid lag, anicteric sclera Mouth: no lip lesion, mucus membranes moist Cardiovascular: S1S2 reg, no murmur, positive posterior tibial pulse bilateral, Lungs: CTA bilateral, no rhonchi, no rales , no accessory muscle use Abdominal: soft, nontender to palpation, no guarding, no appreciable organomegaly Ext: no gross muscle atrophy, no edema, no contractures Neuro: CN II-XI grossly intact, no focal neuro deficits Psych: Alert, oriented, appropriate affect A total of 20 minutes of time were spent preparing this complex discharge summary . Pertinent Studies: Echocardiogram-ejection fraction 55-60%, aortic root 3.8 cm, Liver ultrasound-absent gallbladder, within normal limits Patient Condition at Discharge: Fair Plan - Discharge Summary Discharge Rx Participant: No New Discharge Prescriptions: Continue Naproxen Sodium [Aleve] 220 mg PO BID PRN PRN Reason: Pain Discontinued HYDROcodone/APAP 5-325MG [Eldridge 5-325] 1 tab PO Q4HR PRN 3 Days #18 tab PRN Reason: Pain Discharge Medication List Naproxen Sodium [Aleve] 220 mg PO BID PRN 10/04/17 [History] Follow up Appointment(s)/Referral(s): Cesar Car MD [Primary Care Provider] - 1-2 days Activity/Diet/Wound Care/Special Instructions: regular diet activity as tolerated, with any restriction given with surgery for Dr. Thompson Consider outpatient stress test after discussion with Dr. Car Discharge Disposition: HOME SELF-CARE
--- NOTE | 2017-10-06 15:06 | P.PN ---
Subjective Mr. Fischer is seen and examined resting comfortably in bed. He continues to feel a tight sensation in the epigastric region. No specific alleviating or aggravating factors. He denies shortness of breath, nausea, vomiting, diaphoresis, palpitations or dizziness. Cardiac enzymes are negative x3, LDL 113 , HDL 54. Blood pressure 116/67 heart rate afebrile and maintaining oxygen saturation on room air. He has been up ambulating without increasing intensity of discomfort. Echocardiogram reveals preserved LV systolic function with EF 55- 60%. Liver ultrasound obtained shows post-operative changes with no acute findings. Objective - Vital Signs Vital signs: Vital Signs Temp 98.1 F 10/05/17 11:52 Pulse 79 10/05/17 12:00 Resp 16 10/05/17 12:00 BP 116/67 10/05/17 11:52 Pulse Ox 96 10/05/17 11:52 Intake & Output 10/04/17 10/05/17 10/05/17 18:59 06:59 18:59 Weight 99.79 kg 99.79 kg Other: Voiding Method Toilet Toilet Toilet - Exam GENERAL: Well-appearing, well-nourished and in no acute distress. NECK: Supple without JVD or thyromegaly. LUNGS: Breath sounds clear to auscultation bilaterally. Respiration equal and unlabored. No wheezes, rales or rhonchi. HEART: Regular rate and rhythm without murmurs, rubs or gallops. S1 and S2 heard. EXTREMITIES: Normal range of motion, no edema. No clubbing or cyanosis. Peripheral pulses intact. - Labs CBC & Chem 7: 10/04/17 08:47 10/05/17 08:41 Labs: Abnormal Lab Results - Last 24 Hours (Table) 10/04/17 10/05/17 Range/Units 08:47 08:41 Total Bilirubin 3.2 H (0.2-1.3) mg/dL LDL Cholesterol, Calc 113 H (0-99) mg/dL Assessment and Plan Assessment: ASSESSMENT Chest pain, atypical. An acute coronary event has ruled out with no EKG evidence of ischemia and negative cardiac enzymes. History of PE 2 years ago Recent robotic surgery for incarcerated hernia PLAN An acute coronary event has been ruled out. Follow up with Dr. Velazquez in 2-3 weeks for outpatient stress testing. Nurse Practitioner note has been reviewed, I agree with a documented findings and plan of care. Patient was seen and examined.
== END 2017-10-05 16:55 | disposition home or self-care (01) ==
LOC: EC 08:23 → 3OBS 10:48
PROVIDERS: ADMIT Family Medicine; ATTEND Family Medicine
DX: R07.89 Other chest pain (principal); R17 Unspecified jaundice; Z86.711 Personal history of pulmonary embolism; I77.810 Thoracic aortic ectasia; R06.02 Shortness of breath; Z98.890 Other specified postprocedural states; D58.0 Hereditary spherocytosis; R79.89 Other specified abnormal findings of blood chemistry; Z90.49 Acquired absence of other specified parts of digestive tract; Z90.81 Acquired absence of spleen; Z87.19 Personal history of other diseases of the digestive system; Z82.49 Family history of ischemic heart disease and other diseases of the circulatory system; Z83.79 Family history of other diseases of the digestive system
CPT/HCPCS: 99291; 96376 ×2; 96365 ×2; 96366 ×3; 36415; 94760; 93005; 93306; 85379; 83880; 80061; 80053 ×2; 82550; 82553; 83735; 84484; 85025; 85610; 85730; 76705; 71275; G0378 ×2; J1644 ×2; Q9967

== ENCOUNTER → 2017-11-13 | Outpatient (CLI) | payer BC ==
--- NOTE | 2017-11-13 14:31 | EST ---
EXERCISE STRESS DATE OF SERVICE: 11/13/2017 AGE: 47 SEX: Male HT: 6'7" WT: 220 PROTOCOL: Exercise treadmill stress test. STAGE: II DURATION OF EXERCISE: 8 minutes HEART RATE REST: 83 BLOOD PRESSURE REST: 124/71 MAXIMUM HEART RATE ACHIEVED: 147 MAXIMUM BLOOD PRESSURE: 161/75 85% MPHR: 146 100% MPHR: 172 METS: 9.7 INDICATIONS: Chest pain. CLINICAL INFORMATION: STRESS DATA: Pretesting physical examination showed heart rate of 83, pressure is 124/71 mmHg. Baseline EKG showed sinus mechanism. The patient exercised on a treadmill according to Buzz protocol for a total of 8 minutes and achieved 9.7 METs. Max heart rate was 147, which is about 85% maximum predicted heart rate. Maximum blood pressure was 161/75 mmHg. Clinically the patient did not have any symptoms of chest pain or chest discomfort during the testing or on recovery. The EKG did not show any significant ST or T-wave abnormalities concerning for ischemia. CONCLUSION: 1. Excellent exercise tolerance. 2. Normal EKG in response to exercise. MMODL / IJN: [id number] /
== END | disposition home or self-care (01) ==
LOC: RADNMMAIN 10:36
PROVIDERS: ATTEND Internal Medicine
DX: R07.89 Other chest pain (principal)
CPT/HCPCS: 93017

== ENCOUNTER 2018-03-06 09:38 | Emergency (ER) | payer BC ==
[2018-03-06 09:44] VITALS: TEMP 98
[2018-03-06] MEDS ORDERED: ONDANSETRON 4 MG/2 ML VIAL IVP STA (10:13)
[2018-03-06] MEDS ORDERED: SODIUM CHLORIDE 0.9% 1,000 ML IV STA (10:13)
[2018-03-06] MEDS ORDERED: MORPHINE SULFATE 4 MG/ML SYRINGE IV STA (10:13)
--- NOTE | 2018-03-06 10:17 | ED ---
General Adult HPI - General Chief complaint: Abdominal Pain Stated complaint: Stomach pain Time Seen by Provider: 03/06/18 10:01 Source: patient, RN notes reviewed, old records reviewed Mode of arrival: ambulatory Limitations: no limitations - History of Present Illness Initial comments: Patient is a 48 year old male presenting to the ER today with a chief complaint of abdominal pain over the last 10 days. Patient states that he does have history of diverticulitis. He states that he's had a constant pain located in the left lower quadrant. States at times it's been sharp. Currently rates pain 5/10. States his pain has not skin and going away so he came here to the emergency room to have it checked. Patient states at times she's felt flushed. He denies any other complaints or symptoms. Patient denies any recent fever, chills, shortness of breath, chest pain, back pain, nausea or vomiting, numbness or tingling, headaches or visual changes, or any other complaints. - Related Data Previous Rx's Medication Instructions Recorded Ciprofloxacin HCl [Cipro] 500 mg PO Q12HR #20 day 03/06/18 metroNIDAZOLE [Flagyl] 500 mg PO TID #21 tab 03/06/18 Allergies Allergy/AdvReac Type Severity Reaction Status Date / Time No Known Allergies Allergy Verified 03/06/18 09:42 Review of Systems ROS Statement: Those systems with pertinent positive or pertinent negative responses have been documented in the HPI. ROS Other: All systems not noted in ROS Statement are negative. Past Medical History Past Medical History: Blood Disorder, GI Bleed, Musculoskeletal Disorder, Pulmonary Embolus (PE) Additional Past Medical History / Comment(s): hx. perforated diverticuli with bowel resection/colostomy and colostomy reversal, hereditary spherocytosis, pulmonary embolism after colostomy reversal 2016, recent intermittent rectal bleeding, cramping History of Any Multi-Drug Resistant Organisms: None Reported Past Surgical History: Appendectomy, Back Surgery, Bowel Resection, Cholecystectomy, Hernia Repair, Orthopedic Surgery Additional Past Surgical History / Comment(s): colonoscopies, bowel resection and colostomy due to ruptured diverticuli, 06/25/15 open colostomy reversal, splenectomy, 2013 lumbar laminectomy/discectomy L5-S1, right rotator cuff, left knee arthroscopy Past Anesthesia/Blood Transfusion Reactions: No Reported Reaction Additional Past Anesthesia/Blood Transfusion Reaction / Comment(s): Pt has received blood without reaction. Past Psychological History: No Psychological Hx Reported Smoking Status: Never smoker Past Alcohol Use History: None Reported Past Drug Use History: None Reported - Past Family History Father Family Medical History: Blood Disorder Additional Family Medical History / Comment(s): Father had spherocytosis. He had leg ulcers and at age 44 yrs. Mother Additional Family Medical History / Comment(s): Mother has colitis. She is living. Sister(s) Family Medical History: Blood Disorder, Deep Vein Thrombosis (DVT) Additional Family Medical History / Comment(s): Sister had blood clot and was recently found to have elevated factor 8 General Exam - General Exam Comments Initial Comments: General: The patient is awake and alert, in no distress. Neck: The neck is supple, there is no tenderness or JVD. Cardiovascular: There is a regular rate and rhythm. No murmur, rub or gallop is appreciated. Respiratory: Lungs are clear to auscultation, respirations are non-labored, breath sounds are equal. No wheezes, stridor, rales, or rhonchi. Gastrointestinal: Abdomen soft on palpation. Tender to palpation left lower quadrant. No rebound, guarding or CVA tenderness. Musculoskeletal: Normal ROM, no tenderness. Strength 5/5. Sensation intact. Pulses equal bilaterally 2+. Neurological: A&O x 3. CN II-XII intact, There are no obvious motor or sensory deficits. Coordination appears grossly intact. Speech is normal. Skin: Skin is warm and dry and no rashes or lesions are noted. Psychiatric: Cooperative, appropriate mood & affect, normal judgment. Limitations: no limitations Course Vital Signs 03/06/18 09:42 Temperature 98.0 F Pulse Rate 77 Respiratory 18 Rate Blood Pressure 123/78 O2 Sat by Pulse 98 Oximetry Medical Decision Making - Medical Decision Making Patient's labs been reviewed. Patient's CT shows no evidence of diverticulitis. There is evidence for colitis. Patient will be treated with antibiotics of Cipro Flagyl due to history he does have a follow-up this family doctor in 2 days. He is advised return here to the emergency room if any symptoms increase or worsen or for any other concerns. - Lab Data Result diagrams: 03/06/18 10:48 03/06/18 10:48 Lab Results 03/06/18 03/06/18 Range/Units 10:48 10:48 WBC 6.7 (3.8-10.6) k/uL RBC 5.52 (4.30-5.90) m/uL Hgb 17.2 (13.0-17.5) gm/dL Hct 46.9 (39.0-53.0) % MCV 84.9 (80.0-100.0) fL MCH 31.1 (25.0-35.0) pg MCHC 36.6 (31.0-37.0) g/dL RDW 13.3 (11.5-15.5) % Plt Count 345 (150-450) k/uL Sodium 141 (137-145) mmol/L Potassium 4.9 (3.5-5.1) mmol/L Chloride 107 (98-107) mmol/L Carbon Dioxide 27 (22-30) mmol/L Anion Gap 7 mmol/L BUN 15 (9-20) mg/dL Creatinine 0.81 (0.66-1.25) mg/dL Est GFR (CKD-EPI)AfAm >90 (>60 ml/min/1.73 sqM) Est GFR (CKD-EPI)NonAf >90 (>60 ml/min/1.73 sqM) Glucose 95 (74-99) mg/dL Calcium 9.6 (8.4-10.2) mg/dL Total Bilirubin 3.3 H (0.2-1.3) mg/dL AST 33 (17-59) U/L ALT 33 (21-72) U/L Alkaline Phosphatase 61 (38-126) U/L Total Protein 7.9 (6.3-8.2) g/dL Albumin 4.7 (3.5-5.0) g/dL Amylase 113 H (30-110) U/L Lipase 268 (23-300) U/L Disposition Clinical Impression: Colitis Disposition: HOME SELF-CARE Condition: Good Instructions: Colitis (ED) Additional Instructions: Please use medication as discussed. Please follow-up with family doctor in the next 2 days. Please return to emergency room if the symptoms increase or worsen or for any other concerns. Prescriptions: Ciprofloxacin HCl [Cipro] 500 mg PO Q12HR #20 day metroNIDAZOLE [Flagyl] 500 mg PO TID #21 tab Is patient prescribed a controlled substance at d/c from ED?: No Referrals: Cesar Car MD [Primary Care Provider] - 1-2 days Time of Disposition: 12:53
[2018-03-06 11:18] LABS: ALT 33 U/L (21-72); AST 33 U/L (17-59); Albumin 4.7 g/dL (3.5-5.0); Alkaline Phosphatase 61 U/L (38-126); Amylase 113 U/L (30-110); Anion Gap 7 mmol/L; Blood Urea Nitrogen 15 mg/dL (9-20); Calcium 9.6 mg/dL (8.4-10.2); Carbon Dioxide 27 mmol/L (22-30); Chloride 107 mmol/L (98-107); Glucose 95 mg/dL (74-99); Lipase 268 U/L (23-300); Potassium 4.9 mmol/L (3.5-5.1); Sodium 141 mmol/L (137-145); Total Bilirubin 3.3 mg/dL (0.2-1.3); Total Protein 7.9 g/dL (6.3-8.2)
[2018-03-06 12:34] LABS: HCT 46.9 % (39.0-53.0); HGB 17.2 gm/dL (13.0-17.5); Hyperchromasia Moderate; MCH 31.1 pg (25.0-35.0); MCHC 36.6 g/dL (31.0-37.0); MCV 84.9 fL (80.0-100.0); Mean Platelet Volume 7.6; Platelet Count 345 k/uL (150-450); RBC 5.52 m/uL (4.30-5.90); RDW 13.3 % (11.5-15.5); WBC 6.7 k/uL (3.8-10.6)
--- NOTE | 2018-03-06 12:36 | CT ---
EXAMINATION TYPE: CT abdomen pelvis w con DATE OF EXAM: 03/06/2018 REFERENCE: Previous study dated 04/04/2016. HISTORY: abdominal pain HISTORY: LLQ pain, history of diverticulitis REFERENCE: NONE CT DLP: 882.5 mGy Automated exposure control for dose reduction was used. TECHNIQUE: Helical acquisition through the abdomen and pelvis was obtained following the oral ingesti on of without Oral Contrast and following intravenous administration of 100 mL of Isovue 300. The edward a was reformatted in axial, coronal and sagittal projections. FINDINGS: There is dependent atelectasis in the dependent portions of the lungs. There is no pleural or pericardial fluid. The heart is not enlarged. Within the abdomen, the gallbladder has been removed. The spleen is absent. The liver is unremarkable . Both adrenal glands are unremarkable. Both kidneys demonstrate function and appear morphologically normal. The pancreas is unremarkable. There is no significant retroperitoneal, iliac or inguinal adenopathy. The bladder is unremarkable. There are scattered diverticula within the sigmoid colon. There has been a resection of the sigmoid c olon. I do not see radiographic evidence of diverticulitis at this time. There is some questionable m ucosal thickening involving the descending colon. This may be due to lack of distention. The appendix is not visualized. Small bowel loops are of normal caliber. There is a ventral hernia which is somewhat complex. The mouth measures at maximum 2.4 cm. It contain s fat only. A second small left paracentral hernia is noted at the level of the pelvis this is situat ed between the rectus muscle and the obliques. The mouth measures 6.1 mm and this also contains fat o nly. There is no free fluid and no free air. There is some degenerative disc disease and facet arthropathy within the lumbar spine. There is mild hypertrophic spondylosis. There is minimal, stable wedging of the L3 vertebral body. IMPRESSION: 1. NO ACUTE INFLAMMATORY ABNORMALITY. 2. POSTSURGICAL CHANGE. 3. MINIMAL RESIDUAL DIVERTICULOSIS OF THE SIGMOID REGION. 4. MUCOSAL THICKENING IN THE DESCENDING COLON MAY REFLECT PERISTALSIS. PLEASE CORRELATE TO EXCLUDE CO LITIS. 5. SEVERAL ABDOMINAL WALL HERNIAS CONTAINING FAT ONLY. 6. DEGENERATIVE CHANGES WITHIN THE SPINE.
[2018-03-06 12:55] LABS: Eosinophils # (M) 0.13 k/uL (0-0.7); Lymphocytes # (M) 1.68 k/uL (1.0-4.8); Neutrophils # (M) 4.49 k/uL (1.3-7.7); Neutrophils % (M) 67 %; Nucleated Red Blood Cells 0 /100 WBC (0-0); Total Cells Counted 100
[2018-03-06 13:00] VITALS: BP 126/74; PULSE 74; RESP 20
[2018-03-08 10:36] LABS: Howell-Jolly Bodies Present; Spherocytes Present
[2018-03-08 10:37] LABS: Poikilocytosis (M) Present
== END 2018-03-06 13:00 | disposition home or self-care (01) ==
LOC: EC 09:38
DX: K52.9 Noninfective gastroenteritis and colitis, unspecified (principal); Z87.19 Personal history of other diseases of the digestive system; Z93.3 Colostomy status; Z90.49 Acquired absence of other specified parts of digestive tract; Z98.890 Other specified postprocedural states; Z90.81 Acquired absence of spleen
CPT/HCPCS: 36415; 80053; 82150; 83690; 85025; 87040; 74177; 99284; 96374; 96375; 96361 ×2; J2270; J2405; Q9967

== ENCOUNTER 2019-04-19 05:55 | Day surgery (SDC) | payer BC, OTHER ==
[2019-04-18 12:28] VITALS: BMI 30.5
[~2019-04-19 05:55] MED LIST changes: +LIDOCAINE 1% 20 ML VIAL (10MG/ML) FOR IV START INTRADERMA PRN; +MIDAZOLAM 2 MG/2 ML VIAL IV PRN; -ONDANSETRON 4 MG/2 ML VIAL IVP ONE; +SCOPOLAMINE 1.5MG/72HR PATCH TRANSDERM ONE; -ceFAZolin IN SWFI 2 GM/20 ML SYRINGE IVP ONE
[2019-04-19] MEDS: ONDANSETRON 4 MG/2 ML VIAL IVP ONE ×2 (06:34→12:58)
[2019-04-19] MEDS ORDERED: SUCCINYLCHOLINE CHLORIDE VIAL 200 MG/10 ML VIAL IV ONE (07:42)
[2019-04-19] MEDS ORDERED: MIDAZOLAM 2 MG/2 ML VIAL ONE (07:42)
[2019-04-19] MEDS ORDERED: PROPOFOL 10 MG/ML 20 ML VIAL IV ONE (07:42)
[2019-04-19] MEDS ORDERED: fentaNYL (PF) 50 MCG/ML 2 ML AMP ONE (07:42)
[2019-04-19] MEDS ORDERED: LIDOCAINE 1% INJ 10MG/ML (20 ML MDV) ONE (07:42)
[2019-04-19] MEDS ORDERED: LACTATED RINGERS 1,000 ML IV ONE (08:48)
[2019-04-19] MEDS ORDERED: LIDOCAINE 1%-EPI 1:100,000 20 ML VIAL SQ ONE ×2 (11:08)
[2019-04-19] MEDS ORDERED: ROPIVACAINE 5 MG/ML 30 ML VIAL MISCELLANE ONE ×2 (11:08)
--- NOTE | 2019-04-19 12:10 | XR ---
EXAMINATION TYPE: XR wrist limited LT DATE OF EXAM: 04/19/2019 COMPARISON: NONE TECHNIQUE: Two views submitted HISTORY: Post op FINDINGS: There is postsurgical change of the wrist in near anatomic alignment. There is soft tissue edema and emphysema. IMPRESSION: 1. Postoperative change
[2019-04-19 12:21] VITALS: TEMP 97.8
--- NOTE | 2019-04-19 12:51 | FL ---
EXAMINATION TYPE: FL guidance operating room DATE OF EXAM: 04/19/2019 HISTORY: Fluoroscopy time 33 seconds of fluoroscopy provided. IMPRESSION: 1. Fluoroscopy time.
[2019-04-19] MEDS ORDERED: METOCLOPRAMIDE 5 MG/ML 2 ML VIAL IVP ONE (13:32)
[2019-04-19 14:06] VITALS: RESP 16
[2019-04-19] MEDS ORDERED: HYDROcodone/APAP 5-325MG 1 EACH TAB PO ONE (15:18)
[2019-04-19] MEDS ORDERED: PROMETHAZINE INJ 25 MG/ML 1 ML VIAL IVPB ONE (15:18)
[2019-04-19 16:04] VITALS: BP 128/80; PULSE 77
--- NOTE | 2019-04-28 19:28 | P.OP ---
Date of Procedure: 04/19/19 Preoperative Diagnosis: Subacute left wrist sprain with scapholunate ligament tear Postoperative Diagnosis: Subacute left wrist sprain with Grade 3 scapholunate ligament tear Procedure(s) Performed: 1. Left wrist examination under anesthesia and manual application of joint stress for radiography by physician 2. Left wrist diagnostic arthroscopy with debridement and synovectomy 3. Open left scapholunate ligament repair with Internal Brace augmentation 4. Percutaneous pinning of the left scaphocapitate joint 5. Posterior interosseous nerve (PIN) neurectomy 6. Application of short arm thumb spica splint by physician Implants: Arthrex 3.5 mm SwiveLock anchors (2), Suturetape, 0.054 K wire Anesthesia: CHANDAA Surgeon: Joey Lozada [employer]s I Assembler #1: Rin Bal Estimated Blood Loss (ml): 20 Condition: stable Disposition: PACU Indications for Procedure: The patient is a pleasant 49-year-old male who sustained an injury to his left wrist while forcefully turning a wrench. His mechanism and clinical exam were consistent with a scapholunate ligament tear. An MRI was previously obtained, which confirmed the tear. Treatment options (and associated risks and benefits) were discussed in the office. The patient expressed understanding, acceptance of the risks and wished to proceed with surgery. Consent forms were signed. The operative site was confirmed and marked. Description of Procedure: The patient was brought to the operative suite and positioned supine on the operating table with the left upper extremity on an arm board. Anesthesia and prophylactic antibiotics were administered uneventfully. A time-out was performed, confirming patient identifiers, the operative side, site and procedures to be performed: all team members expressed agreement. The wrist was initially examined under anesthesia: there was mild laxity with scapholunate ballottement and Watsons test, but more prominent instability and shift with dorsally-directed pressure on the scaphoid tubercle. The wrist was then examined with intraoperative fluoroscopy. There was mild widening of the scapholunate interval. The scapholunate angle was increased with some lunate extension, but lino DISI deformity was not apparent. The wrist was ranged under live fluoroscopy: no gross instability was appreciated. The patient was positioned for diagnostic arthroscopy. The left upper extremity was prepped and draped in standard, sterile fashion. The hand was suspended in finger traps and 10 pounds of tension was applied through the traction tower. The limb was exsanguinated with an Esmarch and the tourniquet was inflated. Standard wrist arthroscopy portals were marked. The joint was insufflated with 7 cc of normal saline. The 3-4 portal was created, incising only the skin. A mosquito hemostat was used to create an arthrotomy, with immediate return of the insufflated fluid. Additional saline was injected into the 4-5 portal to confirm placement: fluid freely flowed out of the 3-4 portal. A limited intraoperative arthrogram was performed: Saline was injected into the midcarpal joint to further evaluate the integrity of the scapholunate ligament: a small amount of fluid did return through the 3-4 portal. The arthroscope was inserted. A needle was used to confirm placement of the 4-5 portal, which was then created in a similar fashion. A standard diagnostic arthroscopy was performed. The volar extrinsic ligaments were visualized and appeared uninjured. A mild to moderate amount of proliferative tenosynovium was encountered along the dorsal capsule. A tear of the scapholunate was identified, with a large flap protruding into the radiocarpal joint. When probed, the scaphoid and lunate showed hypermobility but not gross instability: the arthroscope could not be passed into the joint. No focal chondral defects or significant degenerative changes were identified. The lunotriquetral ligament was intact and the joint demonstrated no laxity. The TFCC was intact and showed good tension with trampoline test. Radial and ulnar midcarpal portals were established. There was no incongruity between the scaphoid and lunate. An arthroscopic probe was inserted between the bones, but it could not be turned. An arthroscopic shaver was inserted. The dorsal capsule was debrided and a synovectomy was performed. Only the frayed edges of the torn ligament were resected with the shaver. The camera and instruments were removed. The hand was removed from the traction tower. A midline incision was marked over the dorsal carpus. The skin was sharply incised and full-thickness skin flaps were elevated. The EPL tendon was identified at the edge of the extensor retinaculum. This was sharply released and mobilized to expose the dorsal capsule. The posterior interosseous nerve was identified on the floor of the fourth compartment. A 1-cm segment was sharply excised for adjunctive postoperative pain relief. An ulnarly-based capsular flap was sharply raised, extending parallel to the dorsal intercarpal ligament. The scapholunate tear was directly visualized. The remaining ligament was of good qualilty and remained firmly anchored to its scaphoid attachment. The decision was made to proceed with primary repair. Joystick K wires (0.062) were drilled into the scaphoid and lunate. A small incision was made in the snuffbox. Spreading dissection was used to expose the capsule over the scaphoid. Several small vessels and nerve branches were identified, mobilized and protected. The joysticks were used to manipulate and reduce the scapholunate joint, which was confirmed on orthogonal imaging. With the joint held reduced, a smooth 0.054 K wire was drilled across the scaphocapitate joint. Guidewires for the 3.5 mm SwiveLock anchors were drilled into the scaphoid and lunate, near their respective articular margins. Position of the wires was assessed on imaging and adjusted until satisfactory. Each wire was then overdrilled to a positive stop with the cannulated drill. The SutureTape and two 4-0 FiberWire sutures were loaded into the anchor, which was inserted into the bone tunnel in the lunate. Traction on the sutures demonstrated excellent purchase. The bony insertion site for the ligament was debrided with a curette to stimulate [id number] healing. The FiberWire sutures were used to repair the ligament back down to its insertion on the lunate using horizontal mattress stitches. The repair was then reinforced with the internal brace: The other end of the SutureTape was loaded into the second anchor, which was then inserted into the scaphoid bone tunnel. Excellent tension was achieved. Excess Suturetape was cut flush and removed. The joystick K wires were removed. Final images were obtained, confirming implant positions and joint alignment. Excellent reduction of the scapholunate interval was achieved with improvement of both the radiolunate and scapholunate angles. The wound and joint were thoroughly irrigated with normal saline. The capsule and dorsal extrinsic ligaments were repaired with interrupted [id number] stitches using 4-0 Fiberwire. The tourniquet was released after 123 minutes at 250 mmHg and was not used for the remainder of the case; good hemostasis was obtained with manual pressure and electrocautery. All wounds were thoroughly irrigated with normal saline. The K wire across the scaphocapitate joint was cut and capped with a Jurgan ball. The skin was closed around it with 4-0 nylon sutures. The EPL tendon was left superficial and the extensor retinaculum was repaired with 2-0 Vicryl suture. The dorsal subcutaneous tissues were reapproximated with interrupted Vicryl sutures. The incision was closed with 4-0 nylon sutures. The portal incisions were closed with simple 5-0 nylon sutures. Local anesthetic with epinephrine was injected for adjunctive postoperative analgesia and hemostasis. Soft, sterile dressings were applied, followed by short arm plaster thumb spica splint. All sponge, needle and instrument counts were correct at the end of the case. The patient tolerated the procedure well and was taken to the recovery room in stable condition.
== END 2019-04-19 16:17 | disposition home or self-care (01) ==
LOC: OR 05:55
PROVIDERS: ATTEND Orthopaedic Surgery
DX: S63.392A Traumatic rupture of other ligament of left wrist, initial encounter (principal); X50.1XXA Overexertion from prolonged static or awkward postures, initial encounter; M65.80 Other synovitis and tenosynovitis, unspecified site; R00.9 Unspecified abnormalities of heart beat; I97.191 Other postprocedural cardiac functional disturbances following other surgery; D58.0 Hereditary spherocytosis; Z86.711 Personal history of pulmonary embolism; Z79.899 Other long term (current) drug therapy
CPT/HCPCS: 29844; 25320; 93005; 73100; C1713; J2250; J0330; J1100; J2550; J2765; J0690; J2405; J2001; J3010; J2795; J2704

== ENCOUNTER 2019-07-30 08:05 | Emergency (ER) | payer OTHER ==
[2019-07-30 08:10] VITALS: BP 140/76; PULSE 71; RESP 18; TEMP 98.1
--- NOTE | 2019-07-30 08:21 | ED ---
General Adult HPI - General Chief complaint: Extremity Injury, Upper Stated complaint: Arm injury Time Seen by Provider: 07/30/19 08:10 Source: patient Mode of arrival: ambulatory Limitations: no limitations - History of Present Illness Initial comments: Dictation was produced using [employer] dictation software. please excuse any grammatical, word or spelling errors. This patient was cared for during a federal and state declared state of emergency secondary to Covid 19 Chief Complaint: 49-year-old male presents with right forearm pain History of Present Illness: Is a 49-year-old male presents with right forearm pain. On Thursday he was doing yard work when a tree branch fell onto his lateral right forearm. Patient states that the pain has been persistent since then. Denies any numbness saline or paresthesias to his hand. States pain does shoot towards his medial fingers. States that the pain causes throbbing and makes it uncomfortable to sleep. The ROS documented in this emergency department record has been reviewed and confirmed by me. Those systems with pertinent positive or negative responses have been documented in the HPI. All other systems are other negative and/or noncontributory. PHYSICAL EXAM: General Impression: Alert and oriented x3, not in acute distress HEENT: Normocephalic atraumatic, extra-ocular movements intact, pupils equal and reactive to light bilaterally, mucous membranes moist. Cardiovascular: Heart regular rate and rhythm Chest: Able to complete full sentences, no retractions, no tachypnea Abdomen: abdomen soft, non-tender, non-distended, no organomegaly Musculoskeletal: Pulses present and equal in all extremities, no peripheral edema Right upper extremity: Mild ecchymoses to the lateral forearm. Intact supination and pronation. Pulses intact. Good cap refill. No sensory deficit. No gross deformity. Forearm compartments are soft Motor: no focal deficits noted Neurological: CN II-XII grossly intact, no focal motor or sensory deficits noted Skin: Intact with no visualized rashes Psych: Normal affect and mood ED course: 49 old male presents with right forearm pain after traumatic incident proximally 5 days ago. Signs upon arrival are within acceptable limits. No concern for compartment syndrome given that there are soft compartments and patient's pain and physical examination are benign. Patient offered analgesia but refused.X-rays unremarkable. Patient be discharged. Compartment syndrome precautions were discussed with patient. He is told to seek medical attention if he develops worsening pain. - Related Data Home Medications Medication Instructions Recorded Confirmed Acetaminophen Tab [Tylenol Tab] 650 mg PO Q4H PRN 04/18/19 04/19/19 Previous Rx's Medication Instructions Recorded HYDROcodone/APAP 5-325MG [[place] 1 tab PO Q4HR PRN #25 tab 04/19/19 5-325] Allergies Allergy/AdvReac Type Severity Reaction Status Date / Time No Known Allergies Allergy Verified 07/30/19 08:10 Review of Systems ROS Statement: Those systems with pertinent positive or pertinent negative responses have been documented in the HPI. ROS Other: All systems not noted in ROS Statement are negative. Past Medical History Past Medical History: GI Bleed, Musculoskeletal Disorder, Pulmonary Embolus (PE) Additional Past Medical History / Comment(s): hx. perforated diverticuli with bowel resection/colostomy and colostomy reversal, hereditary spherocytosis, pulmonary embolism after colostomy reversal 2015, History of Any Multi-Drug Resistant Organisms: None Reported Past Surgical History: Appendectomy, Back Surgery, Bowel Resection, Cholecystectomy, Hernia Repair, Orthopedic Surgery Additional Past Surgical History / Comment(s): colonoscopies, bowel resection and colostomy due to ruptured diverticuli, 06/25/15 open colostomy reversal, splenectomy, lumbar laminectomy/discectomy L5-S1, right rotator cuff, left knee arthroscopy Past Anesthesia/Blood Transfusion Reactions: No Reported Reaction Additional Past Anesthesia/Blood Transfusion Reaction / Comment(s): Pt has received blood without reaction. Past Psychological History: No Psychological Hx Reported Smoking Status: Never smoker Past Alcohol Use History: Rare Past Drug Use History: None Reported - Past Family History Father Family Medical History: Blood Disorder Additional Family Medical History / Comment(s): Father had spherocytosis. He had leg ulcers and at age 44 yrs. Mother Additional Family Medical History / Comment(s): Mother has colitis. She is living. Sister(s) Family Medical History: Blood Disorder, Deep Vein Thrombosis (DVT) Additional Family Medical History / Comment(s): Sister had blood clot and was recently found to have elevated factor 8 General Exam Limitations: no limitations Course Vital Signs 07/30/19 08:07 Temperature 98.1 F Pulse Rate 71 Respiratory 18 Rate Blood Pressure 140/76 O2 Sat by Pulse 98 Oximetry Disposition Clinical Impression: Arm contusion Disposition: HOME SELF-CARE Condition: Good Instructions (If sedation given, give patient instructions): Contusion in Adults (ED) Is patient prescribed a controlled substance at d/c from ED?: No Referrals: Cesar Car MD [Primary Care Provider] - 1-2 days Time of Disposition: 08:50
--- NOTE | 2019-07-30 08:44 | XR ---
EXAMINATION TYPE: XR forearm RT , 2 VIEWS DATE OF EXAM ORDERED: 07/30/2019 HISTORY: pain. COMPARISON: None. FINDINGS: No long bone fracture is seen. No other osseous lesion is identified. IMPRESSION: NO ACUTE OSSEOUS LESION.
== END 2019-07-30 08:55 | disposition home or self-care (01) ==
LOC: EC 08:05
DX: S50.11XA Contusion of right forearm, initial encounter (principal); Z86.711 Personal history of pulmonary embolism; W20.8XXA Other cause of strike by thrown, projected or falling object, initial encounter; Y92.096 Garden or yard of other non-institutional residence as the place of occurrence of the external cause
CPT/HCPCS: 99283

== ENCOUNTER 2019-10-28 10:40 | Day surgery (SDC) | payer OTHER ==
[2019-10-25 13:19] VITALS: BMI 23.6
--- NOTE | 2019-10-27 21:13 | P.GSHP ---
History of Present Illness H&P Date: 10/28/19 CHIEF COMPLAINT: Incisional hernia HISTORY OF PRESENT ILLNESS: The patient is a 49-year-old male who presents with a history of swelling and pain along the abdomen from a hernia. Now he presents for surgical intervention. PAST MEDICAL HISTORY: Please see list and reviewed PAST SURGICAL HISTORY: Please see list and reviewed MEDICATIONS: Please see list and reviewed ALLERGIES: Please see list and reviewed SOCIAL HISTORY: Please see list and reviewed FAMILY HISTORY: Please see list and reviewed REVIEW OF ORGAN SYSTEMS: CONSTITUTIONAL: No reports of fevers or chills. No reports of weight loss despite prior attempts. PHYSICAL EXAM: VITAL SIGNS: Stable GENERAL: Well-developed pleasant male in no acute distress. HEENT: No scleral icterus. Extraocular movements grossly intact. Moist buccal mucosa. NECK: Supple without lymphadenopathy. CHEST: Unlabored respirations. Equal bilateral excursions. CARDIOVASCULAR: Regular rate and rhythm. Distal 2+ pulses. ABDOMEN: Soft, nondistended. Palpable defect of the left abdomen. No peritoneal signs. MUSCULOSKELETAL: No clubbing, cyanosis, or edema. ASSESSMENT: 1. Recurrent incisional hernia PLAN: 1. Recommend proceeding with robotic incisional hernia repair with mesh. 2. Benefits and risks of surgical intervention was discussed including possibility of open technique. 3. DVT prophylaxis. 4. Antibiotic prophylaxis. Past Medical History Past Medical History: Blood Disorder, GI Bleed, Musculoskeletal Disorder, Pulmonary Embolus (PE) Additional Past Medical History / Comment(s): Hx. perforated diverticuli with bowel resection/colostomy and colostomy reversal, Hereditary Spherocytosis(Blood Disorder), Pulmonary Embolism after Colostomy Reversal 2015. History of Any Multi-Drug Resistant Organisms: None Reported Past Surgical History: Appendectomy, Back Surgery, Bowel Resection, Cholecystectomy, Hernia Repair, Orthopedic Surgery Additional Past Surgical History / Comment(s): Colonoscopies, bowel resection and colostomy due to ruptured diverticuli, 06/25/15, open colostomy reversal, splenectomy, lumbar laminectomy/discectomy L5-S1, right rotator cuff, left knee arthroscopy. Past Anesthesia/Blood Transfusion Reactions: No Reported Reaction Additional Past Anesthesia/Blood Transfusion Reaction / Comment(s): Pt has received blood without reaction. Past Psychological History: No Psychological Hx Reported Smoking Status: Never smoker Past Alcohol Use History: Occasional Past Drug Use History: None Reported - Past Family History Father Family Medical History: Blood Disorder Additional Family Medical History / Comment(s): Father had Spherocytosis. He had leg ulcers and at age 44 yrs. Mother Additional Family Medical History / Comment(s): Mother has colitis. She is living. Sister(s) Family Medical History: Blood Disorder, Deep Vein Thrombosis (DVT) Additional Family Medical History / Comment(s): Sister had blood clot after surgery and was found to have elevated Factor 8. Medications and Allergies Home Medications Medication Instructions Recorded Confirmed Type No Known Home Medications 10/25/19 10/25/19 History Allergies Allergy/AdvReac Type Severity Reaction Status Date / Time No Known Allergies Allergy Verified 10/25/19 13:20
[~2019-10-28 10:40] MED LIST changes: +ACETAMINOPHEN TAB 500 MG TAB PO STA; +GABAPENTIN 300 MG CAP PO STA; +HEPARIN SODIUM,PORCINE 5,000 UNIT/ML 1 ML VIAL SQ ONE; -HYDROmorphone 0.5 MG/0.5 ML SYRINGE IVP PRN; +LIDOCAINE 1% (10MG/ML) FOR IV START INTRADERMA PRN; -LIDOCAINE 1% 20 ML VIAL (10MG/ML) FOR IV START INTRADERMA PRN; -MIDAZOLAM 2 MG/2 ML VIAL IV PRN; +ONDANSETRON 4 MG/2 ML VIAL IVP ONE; +TAMSULOSIN 0.4 MG CAP.ER.24H PO STA
[2019-10-28] MEDS ORDERED: ONDANSETRON 4 MG/2 ML VIAL ONE (11:03)
[2019-10-28] MEDS ORDERED: HEPARIN SODIUM,PORCINE 5,000 UNIT/ML 1 ML VIAL ONE (11:03)
[2019-10-28] MEDS ORDERED: ACETAMINOPHEN TAB 500 MG TAB ONE (11:03)
[2019-10-28] MEDS ORDERED: fentaNYL (PF) 50 MCG/ML 2 ML AMP ONE (13:16)
[2019-10-28] MEDS ORDERED: MIDAZOLAM 2 MG/2 ML VIAL ONE (13:16)
[2019-10-28] MEDS ORDERED: SUCCINYLCHOLINE CHLORIDE 100 MG/5 ML SYR IV ONE (13:16)
[2019-10-28] MEDS ORDERED: LIDOCAINE 1% INJ 10MG/ML (20 ML MDV) ONE (13:16)
[2019-10-28] MEDS ORDERED: PROPOFOL 10 MG/ML 20 ML VIAL IV ONE (13:16)
[2019-10-28] MEDS ORDERED: ROCURONIUM BROMIDE 10 MG/ML 5 ML VIAL IV ONE (13:16)
[2019-10-28] MEDS ORDERED: NEOSTIGMINE 1 MG/ML 10 ML VIAL ONE (13:16)
[2019-10-28] MEDS ORDERED: KETOROLAC 30 MG/ML 1 ML VIAL ONE (13:16)
[2019-10-28] MEDS ORDERED: GLYCOPYRROLATE 0.2 MG/ML 2 ML VIAL ONE (13:16)
[2019-10-28] MEDS ORDERED: ROPIVACAINE 5 MG/ML 30 ML VIAL ONE (13:16)
[2019-10-28] MEDS ORDERED: BUPIVACAINE (PF) 0.25% 30 ML VIAL SQ ONE ×2 (13:20→14:02)
[2019-10-28] MEDS ORDERED: LACTATED RINGERS 1,000 ML IV ONE ×3 (14:04→18:26)
[2019-10-28 17:19] VITALS: TEMP 97.1
--- NOTE | 2019-10-28 17:37 | P.OP ---
Date of Procedure: 10/28/19 Description of Procedure: Date of Procedure: 10/28/19 SURGEON: JYOTI DANIELS MD PREOPERATIVE DIAGNOSES: 1. Recurrent left lower quadrant incisional hernia, previous ostomy site 2. History of perforated diverticulitis 3. History of colostomy creation, with reversal 4. Hereditary spherocytosis 5. History of splenectomy 6. History of pulmonary embolism POSTOPERATIVE DIAGNOSES: 1. Recurrent left lower quadrant incisional hernia, previous ostomy site 2. History of perforated diverticulitis 3. History of colostomy creation, with reversal 4. Hereditary spherocytosis 5. History of splenectomy 6. History of pulmonary embolism 7. Multiple incisional hernias 8. Severe peritoneal adhesions OPERATION: 1. Robotic-assisted da Laurence Xi laparoscopic repair of recurrent incarcerated previous parastomal hernia left lower quadrant incisional hernia using 6" x 8" ( 15 x 20 cm) Ventralight ST mesh 2. Robotic-assisted da [facility] Xi laparoscopic repair of initial incarcerated epigastric incisional hernia with mesh 3. Robotic-assisted da [facility] Xi laparoscopic repair of initial incarcerated lower midline incisional hernia with mesh 4. Robotic-assisted da [facility] Xi laparoscopic extensive lysis of adhesions over 1.5 hours Anesthesia: GETA, regional, local Estimated Blood Loss (ml): 10 Pathology: none sent Condition: stable Disposition: floor COMPLICATIONS: None. Operative Findings: 1. Severe peritoneal adhesions greater omentum to abdominal wall midline, left upper quadrant, left lower quadrant, right lower quadrant requiring over 1.5 hours extensive lysis of adhesions using vessel sealer and EndoShears with cautery 2. Multiple abdominal wall defects, left lower quadrant 4 x 3 cm, epigastrium 10 x 13 cm, lower midline 8 x 6 cm 3. Left lower quadrant recurrent incisional hernia repair approach with fascial imbrication 2 including lower midline hernia 4. Epigastric incisional hernia reapproximated using fascial imbrication reducing defect for mesh closure INDICATIONS: The patient is a 49-year-old male who presents with a personal history of multiple abdominal wall hernias. Surgical intervention with laparoscopic versus robotic and open techniques were reviewed. Placement of mesh was also reviewed. Benefits and risks were described including but not limited to pain, infection, recurrence, adhesions with mesh. Informed consent was obtained. DESCRIPTION OF PROCEDURE: The patient was brought into the operating room and laid in supine position. After general induction, the abdomen had been prepped and draped in standard sterile fashion. Ioban draping was also placed. Prior to incision, a timeout protocol was confirmed with surgical team regarding the patient's name including procedures to be performed. The robot was primed prior to the procedure. A field block using local anesthetic was placed along hernia site including the proposed port sites. Initial incision was made with an #11 blade along the left upper quadrant. A 0 degree 5 mm laparoscopic trocar entry was performed and insufflated. Dense adhesions were found along the epigastrium including lower abdomen, midline, left upper quadrant. Carefully, the camera was advanced to the right lateral abdominal wall for placement of ports. Three 8 mm ports were placed along the right lateral abdominal wall under direct localization. Placements of the ports were 15 cm from the target anatomy and 10 cm apart. An accessory 12 mm port was placed at the right upper quadrant after exchanging the 5 mm port for placement of mesh including sutures. The da Laurence Xi robot was previously primed, prepped and draped then docked from the right side of the patient. I then sat at the robot Da Laurence Xi console where working arms of the robot including Bovie cautery connected to robotic scissors, vessel sealer, needle sulky driver, and graspers placed by the hair or beauty salon assistant. To address the dense adhesions along the abdominal wall, greater omentum to the abdominal wall was found. Combination of sharp dissection using EndoShears with cautery including Vessel sealer was performed carefully without enterotomies. Extensive lysis of adhesions over 1.5 hours was performed of the upper abdomen, midline including, lower abdomen. Incarcerated omental contents were found along the upper midline defect, left lower quadrant and lower midline. The defects were reduced. Three distinct fascial defects were found: Upper midline defect 10 x 13 cm, left lower quadrant 4 x 3 cm and lower midline defect 8 x 6 cm. The incarcerated contents were reduced as the peritoneal fat was cleaned from the abdominal wall. Next, hemostasis was checked with cautery. The hernia defects were oversewn using #1 nonabsorbable V-lock suture for each defect separately with fascial imbrication x 2. Next, ventralight ST mesh 15 x 20 cm was cut and placed with the rough side towards the abdominal wall as to cover the epigastric, left lower quadrant including lower midline defect. 2-0 VLOC nonabsorbable 9 inch sutures were used to fixate the mesh. A final endoscopic imaging was obtained. All instruments and pneumoperitoneum were evacuated from the abdominal cavity. The da Laurence Xi robot was undocked from the patient. I re-scrubbed into the case for closure of incisions. The fascia of the 12-mm port was probed and less than 8-mm in size. The incisions were reapproximated using 4-0 Monocryl in an interrupted subcuticular fashion. Liquid glue was applied to the skin after cleansing the skin with normal saline and dilute hydrogen peroxide. An abdominal binder was placed. An umbilical dressing was placed prior. At the end of the procedure, needle, sponge, and instrument count had been verified correct by director surgical. The patient was taken to the postanesthesia care unit in stable condition. Plan - Discharge Summary Discharge Rx Participant: Yes New Discharge Prescriptions: New Ibuprofen [Motrin] 600 mg PO Q8HR PRN #30 tab PRN Reason: Pain HYDROcodone/APAP 5-325MG [[place] 5-325] 1 tab PO Q4HR PRN 3 Days #18 tab PRN Reason: Pain Acetaminophen Tab [Tylenol Tab] 500 mg PO Q6H PRN #30 tablet PRN Reason: Pain Discharge Medication List Acetaminophen Tab [Tylenol Tab] 500 mg PO Q6H PRN #30 tablet 10/28/19 [Rx] HYDROcodone/APAP 5-325MG [[place] 5-325] 1 tab PO Q4HR PRN 3 Days #18 tab 10/28/19 [Rx] Ibuprofen [Motrin] 600 mg PO Q8HR PRN #30 tab 10/28/19 [Rx] Follow up Appointment(s)/Referral(s): Jyoti Daniels MD [STAFF PHYSICIAN] - 11/09/19 (CALL TO SET APPOINTMENT TIME.) Patient Instructions/Handouts: *[facility] - Managing Your Pain After Surgery Without Opioids, *[facility] - (Anesthesia) Discharge Instructions Outpatient Surgery, Laparoscopic Herniorrhaphy (DC), Abdominal Binder (DC) Activity/Diet/Wound Care/Special Instructions: Wear abdominal binder at all times No lifting over 10 pounds in 2 weeks until Nov 10. July shower. No bath tub soaks for two weeks until Nov 10. Diet as tolerated. No driving while on narcotics. Use Tylenol and ibuprofen scheduled for the next 24-48 hours for best pain relief. Use ice along incisions for the today to prevent swelling. Discharge Disposition: HOME SELF-CARE
[2019-10-28] MEDS: HYDROmorphone 0.5 MG/0.5 ML SYRINGE IVP PRN ×2 (17:38→17:45)
[2019-10-28 18:30] VITALS: RESP 16
--- NOTE | 2019-10-28 18:31 | P.ANPRN ---
Procedure Note - Anesthesia - Nerve Block Performed Left Transversus Abdominis Single Time Out Performed: Yes ([id number]) Date of Procedure: 10/28/19 Procedure Start Time: 18:00 Procedure Stop Time: 18:06 Location of Patient: Phase I Indication: Acute Post-Operative Pain, Requested by Surgeon Specifically requested for management of pain by : Jyoti Daniels Sedation Type: Sedate with meaningful contact maintained Preparation: Sterile Prep Position: Supine Catheter: None Needle Types: Pajunk Needle Gauge: 20, 21 Ultrasound used to visualize needle placement: Yes Ultrasound used to observe medication spread: Yes Injectate: 0.5% Ropivacaine (see comment for volume) (20cc) Blood Aspirated: No Pain Paresthesia on Injection Noted: No Resistance on Injection: Normal Image Stored and Saved: Yes Events: Uneventful and Well Tolerated
[2019-10-28] MEDS ORDERED: HYDROcodone/APAP 5-325MG 1 EACH TAB ONE (18:36)
[2019-10-28] MEDS ORDERED: HYDROcodone/APAP 5-325MG 1 EACH TAB PO ONE (18:36)
[2019-10-28 19:16] VITALS: PULSE 66
[2019-10-28 19:28] VITALS: BP 106/68
== END 2019-10-28 19:57 | disposition home or self-care (01) ==
LOC: OR 10:40
PROVIDERS: ATTEND Surgery Plastic and Reconstructive Surgery
DX: K43.0 Incisional hernia with obstruction, without gangrene (principal); K66.0 Peritoneal adhesions (postprocedural) (postinfection); D58.0 Hereditary spherocytosis; K21.9 Gastro-esophageal reflux disease without esophagitis; Z87.19 Personal history of other diseases of the digestive system; Z86.711 Personal history of pulmonary embolism; Z90.49 Acquired absence of other specified parts of digestive tract; Z98.890 Other specified postprocedural states; Z90.81 Acquired absence of spleen; Z84.81 Family history of carrier of genetic disease; Z84.0 Family history of diseases of the skin and subcutaneous tissue; Z83.79 Family history of other diseases of the digestive system; Z83.2 Family history of diseases of the blood and blood-forming organs and certain disorders involving the immune mechanism
CPT/HCPCS: 49329; 49657; S2900; 64486

== ENCOUNTER 2020-02-12 05:46 | Emergency (ER) | payer OTHER ==
[2020-02-12] MEDS ORDERED: IBUPROFEN 600 MG TAB PO STA (05:57)
--- NOTE | 2020-02-12 06:14 | ED ---
General Adult HPI - General Chief complaint: Shortness of Breath Stated complaint: fever, cough Time Seen by Provider: 02/12/20 05:57 Source: patient, RN notes reviewed, old records reviewed Mode of arrival: ambulatory Limitations: no limitations - History of Present Illness Initial comments: 50-year-old male with a history of asplenia from surgery 1 years old presents emergency department today with fever cough congestion and body aches for the past 2 days. He took Tylenol this morning and arrives with a fever 100.1. 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 - Related Data Previous Rx's Medication Instructions Recorded Acetaminophen Tab [Tylenol Tab] 500 mg PO Q6H PRN #30 tablet 10/28/19 HYDROcodone/APAP 5-325MG [[place] 1 tab PO Q4HR PRN 3 Days #18 tab 10/28/19 5-325] Ibuprofen [Motrin] 600 mg PO Q8HR PRN #30 tab 10/28/19 Azithromycin [Zithromax Z-pack (6 250 mg PO DIRECTED #6 tab 02/12/20 tabs)] Allergies Allergy/AdvReac Type Severity Reaction Status Date / Time No Known Allergies Allergy Verified 02/12/20 05:55 Review of Systems ROS Statement: Those systems with pertinent positive or pertinent negative responses have been documented in the HPI. ROS Other: All systems not noted in ROS Statement are negative. Past Medical History Past Medical History: Blood Disorder, GI Bleed, Musculoskeletal Disorder, Pulmonary Embolus (PE) Additional Past Medical History / Comment(s): Hx. perforated diverticuli with bowel resection/colostomy and colostomy reversal, Hereditary Spherocytosis(Blood Disorder), Pulmonary Embolism after Colostomy Reversal 2015. History of Any Multi-Drug Resistant Organisms: None Reported Past Surgical History: Appendectomy, Back Surgery, Bowel Resection, Cholecystectomy, Hernia Repair, Orthopedic Surgery Additional Past Surgical History / Comment(s): Colonoscopies, bowel resection and colostomy due to ruptured diverticuli, 06/25/15, open colostomy reversal, splenectomy, lumbar laminectomy/discectomy L5-S1, right rotator cuff, left knee arthroscopy. Past Anesthesia/Blood Transfusion Reactions: No Reported Reaction Additional Past Anesthesia/Blood Transfusion Reaction / Comment(s): Pt has received blood without reaction. Past Psychological History: No Psychological Hx Reported Smoking Status: Never smoker Past Alcohol Use History: Occasional Past Drug Use History: None Reported - Past Family History Father Family Medical History: Blood Disorder Additional Family Medical History / Comment(s): Father had Spherocytosis. He had leg ulcers and at age 44 yrs. Mother Additional Family Medical History / Comment(s): Mother has colitis. She is living. Sister(s) Family Medical History: Blood Disorder, Deep Vein Thrombosis (DVT) Additional Family Medical History / Comment(s): Sister had blood clot after surgery and was found to have elevated Factor 8. General Exam - General Exam Comments Initial Comments: 50 year old male, no acute distress. Limitations: no limitations General appearance: alert, in no apparent distress Head exam: Present: atraumatic, normocephalic, normal inspection Eye exam: Present: normal appearance, PERRL, EOMI. Absent: scleral icterus, conjunctival injection, periorbital swelling ENT exam: Present: normal exam, mucous membranes moist Neck exam: Present: normal inspection. Absent: tenderness, meningismus, lymphadenopathy Respiratory exam: Present: normal lung sounds bilaterally. Absent: respiratory distress, wheezes, rales, rhonchi, stridor Cardiovascular Exam: Present: regular rate, normal rhythm, normal heart sounds. Absent: systolic murmur, diastolic murmur, rubs, gallop, clicks GI/Abdominal exam: Present: soft Extremities exam: Present: normal inspection, full ROM, normal capillary refill. Absent: tenderness, pedal edema, joint swelling, calf tenderness Back exam: Present: normal inspection Neurological exam: Present: alert, oriented X3, CN II-XII intact Psychiatric exam: Present: normal affect, normal mood Skin exam: Present: warm, dry, intact, normal color. Absent: rash Course Vital Signs 02/12/20 02/12/20 05:50 08:14 Temperature 100.1 F H 98.9 F Pulse Rate 56 L 95 Respiratory 16 20 Rate Blood Pressure 119/75 122/75 O2 Sat by Pulse 95 98 Oximetry EKG Findings - EKG Comments: EKG Findings:: EKG performed at 6:24 AM shows sinus tachycardia with frequent premature ventricular complexes. Possible left atrial ALLERGIC. Borderline ECG. Ventricular rate of 10 3 bpm.. Intervals 142 ms. She confucianist is 84 ms. QT QTc is 352/461 ms. No evidence of ST elevation. Medical Decision Making - Medical Decision Making 50-year-old male with a history of splenectomy presents the ER today for complaints of upper respiratory congestion and cough. His concern for possible coated. At this time rapid test is negative. Inflammatory markers white blood cell count are normal. Blood cultures were obtained as the Patient is asplenic. He had a temperature 100.1 upon arrival. Patient has a normal chest x-ray. He otherwise appears clinically well. Patient will be given Rocephin for the fever with asplenia. Patient will also be discharged with azithromycin prescription. I discussed Patient to return promptly there is any worsening signs or symptoms difficulty breathing. I discussed the Patient needs to take entire antibiotic prescription. He does report that he is up-to-date on his pneumococcal vaccines. - Lab Data Result diagrams: 02/12/20 06:22 02/12/20 06:22 Lab Results 02/12/20 02/12/20 02/12/20 Range/Units 06:22 06:22 06:22 WBC 6.6 (3.8-10.6) k/uL RBC 5.02 (4.30-5.90) m/uL Hgb 15.6 (13.0-17.5) gm/dL Hct 42.9 (39.0-53.0) % MCV 85.5 (80.0-100.0) fL MCH 31.1 (25.0-35.0) pg MCHC 36.3 (31.0-37.0) g/dL RDW 13.2 (11.5-15.5) % Plt Count 360 (150-450) k/uL MPV 6.8 Neutrophils % 81 % Lymphocytes % 4 % Monocytes % 9 % Eosinophils % 2 % Basophils % 2 % Neutrophils # 5.3 (1.3-7.7) k/uL Lymphocytes # 0.3 L (1.0-4.8) k/uL Monocytes # 0.6 (0-1.0) k/uL Eosinophils # 0.1 (0-0.7) k/uL Basophils # 0.1 (0-0.2) k/uL Hyperchromasia Moderate PT 9.8 (9.0-12.0) sec INR 0.9 (<1.2) APTT 24.6 (22.0-30.0) sec D-Dimer 0.49 (<0.60) mg/L FEU Sodium 138 (137-145) mmol/L Potassium 4.2 (3.5-5.1) mmol/L Chloride 109 H (98-107) mmol/L Carbon Dioxide 24 (22-30) mmol/L Anion Gap 5 mmol/L BUN 21 H (9-20) mg/dL Creatinine 0.81 (0.66-1.25) mg/dL Est GFR (CKD-EPI)AfAm >90 (>60 ml/min/1.73 sqM) Est GFR (CKD-EPI)NonAf >90 (>60 ml/min/1.73 sqM) Glucose 105 H (74-99) mg/dL Plasma Lactic Acid Matt (0.7-2.0) mmol/L Calcium 8.9 (8.4-10.2) mg/dL Magnesium 2.0 (1.6-2.3) mg/dL Total Bilirubin 3.0 H (0.2-1.3) mg/dL AST 33 (17-59) U/L ALT 26 (4-49) U/L Alkaline Phosphatase 64 (38-126) U/L Lactate Dehydrogenase 502 (313-618) U/L C-Reactive Protein <5.0 (<10.0) mg/L Total Protein 7.2 (6.3-8.2) g/dL Albumin 4.2 (3.5-5.0) g/dL Coronavirus (PCR) (Not Detectd) Influenza Type A RNA (Not Detectd) Influenza Type B (PCR) (Not Detectd) 02/12/20 02/12/20 02/12/20 Range/Units 06:22 06:22 06:22 WBC (3.8-10.6) k/uL RBC (4.30-5.90) m/uL Hgb (13.0-17.5) gm/dL Hct (39.0-53.0) % MCV (80.0-100.0) fL MCH (25.0-35.0) pg MCHC (31.0-37.0) g/dL RDW (11.5-15.5) % Plt Count (150-450) k/uL MPV Neutrophils % % Lymphocytes % % Monocytes % % Eosinophils % % Basophils % % Neutrophils # (1.3-7.7) k/uL Lymphocytes # (1.0-4.8) k/uL Monocytes # (0-1.0) k/uL Eosinophils # (0-0.7) k/uL Basophils # (0-0.2) k/uL Hyperchromasia PT (9.0-12.0) sec INR (<1.2) APTT (22.0-30.0) sec D-Dimer (<0.60) mg/L FEU Sodium (137-145) mmol/L Potassium (3.5-5.1) mmol/L Chloride (98-107) mmol/L Carbon Dioxide (22-30) mmol/L Anion Gap mmol/L BUN (9-20) mg/dL Creatinine (0.66-1.25) mg/dL Est GFR (CKD-EPI)AfAm (>60 ml/min/1.73 sqM) Est GFR (CKD-EPI)NonAf (>60 ml/min/1.73 sqM) Glucose (74-99) mg/dL Plasma Lactic Acid Matt 1.1 (0.7-2.0) mmol/L Calcium (8.4-10.2) mg/dL Magnesium (1.6-2.3) mg/dL Total Bilirubin (0.2-1.3) mg/dL AST (17-59) U/L ALT (4-49) U/L Alkaline Phosphatase (38-126) U/L Lactate Dehydrogenase (313-618) U/L C-Reactive Protein (<10.0) mg/L Total Protein (6.3-8.2) g/dL Albumin (3.5-5.0) g/dL Coronavirus (PCR) Not Detected (Not Detectd) Influenza Type A RNA Not Detected (Not Detectd) Influenza Type B (PCR) Not Detected (Not Detectd) - Radiology Data Radiology results: report reviewed Chest x-ray was reviewed and negative for any acute cardio pulmonary process. Disposition Clinical Impression: URI with cough and congestion, Cough, Asplenia Disposition: HOME SELF-CARE Condition: Stable Additional Instructions: Take the medication as prescribed. Motrin Tylenol for fever and pain. Return if there is any significant difficulty breathing. Quarantine for 2 weeks if Covid is positive, results in approximately 5 days. Return immediately if any alarming signs or symptoms occur. Prescriptions: Azithromycin [Zithromax Z-pack (6 tabs)] 250 mg PO DIRECTED #6 tab Is patient prescribed a controlled substance at d/c from ED?: No Referrals: None,Stated [Primary Care Provider] - 1-2 days Time of Disposition: 08:34
[2020-02-12] MEDS ORDERED: SODIUM CHLORIDE 0.9% 1,000 ML IV SCH (06:15)
[2020-02-12] MEDS ORDERED: SODIUM CHLORIDE 0.9% 1,000 ML IV ONE (06:15)
[2020-02-12 06:48] LABS: Basophils # (A) 0.1 k/uL (0-0.2); Basophils % (A) 2 %; Eosinophils # (A) 0.1 k/uL (0-0.7); Eosinophils % (A) 2 %; HCT 42.9 % (39.0-53.0); HGB 15.6 gm/dL (13.0-17.5); Hyperchromasia Moderate; Lymphocytes # (A) 0.3 k/uL (1.0-4.8); Lymphocytes % (A) 4 %; MCH 31.1 pg (25.0-35.0); MCHC 36.3 g/dL (31.0-37.0); MCV 85.5 fL (80.0-100.0); Mean Platelet Volume 6.8; Monocytes # (A) 0.6 k/uL (0-1.0); Monocytes % (A) 9 %; Neutrophils # (A) 5.3 k/uL (1.3-7.7); Neutrophils % (A) 81 %; Platelet Count 360 k/uL (150-450); RBC 5.02 m/uL (4.30-5.90); RDW 13.2 % (11.5-15.5); WBC 6.6 k/uL (3.8-10.6)
--- NOTE | 2020-02-12 06:55 | XR ---
EXAM: XR Chest, 1 View CLINICAL HISTORY: Suspected COVID-19 pneumonia TECHNIQUE: Frontal view of the chest. COMPARISON: 09/04/2015. FINDINGS: Lungs: Unremarkable. No consolidation. Pleural space: Unremarkable. No pneumothorax. Heart: Unremarkable. No cardiomegaly. Mediastinum: Unremarkable. Bones/joints: Unremarkable. IMPRESSION: No radiographic evidence of acute cardiopulmonary process.
[2020-02-12 07:14] LABS: ALT 26 U/L (4-49); AST 33 U/L (17-59); African American GFR (CKD) >90 (>60 ml/min/1.73 sqM); Albumin 4.2 g/dL (3.5-5.0); Alkaline Phosphatase 64 U/L (38-126); Anion Gap 5 mmol/L; Blood Urea Nitrogen 21 mg/dL (9-20); Calcium 8.9 mg/dL (8.4-10.2); Carbon Dioxide 24 mmol/L (22-30); Chloride 109 mmol/L (98-107); Glucose 105 mg/dL (74-99); LDH 502 U/L (313-618); Non-African American GFR(CKD) >90 (>60 ml/min/1.73 sqM); Potassium 4.2 mmol/L (3.5-5.1); Sodium 138 mmol/L (137-145); Total Protein 7.2 g/dL (6.3-8.2)
[2020-02-12 07:19] LABS: D-Dimer 0.49 mg/L FEU (<0.60); INR 0.9 (<1.2); Partial Thromboplastin Time 24.6 sec (22.0-30.0); Prothrombin Time 9.8 sec (9.0-12.0)
[2020-02-12 08:12] LABS: C Reactive Protein <5.0 mg/L (<10.0)
[2020-02-12 08:15] VITALS: TEMP 98.9
[2020-02-12] MEDS ORDERED: cefTRIAXone IN SWFI 1,000 MG/10 ML SYRINGE IVP STA (08:21)
[2020-02-12] MEDS ORDERED: AZITHROMYCIN 500 MG TAB PO STA (08:22)
[2020-02-12 08:57] VITALS: BP 129/81; PULSE 86; RESP 16
[2020-02-12 10:09] LABS: Ferritin 422.8 ng/mL (22.0-322.0)
== END 2020-02-12 09:07 | disposition home or self-care (01) ==
LOC: EC 05:46
DX: J06.9 Acute upper respiratory infection, unspecified (principal); Z20.828 Contact with and (suspected) exposure to other viral communicable diseases; Z90.81 Acquired absence of spleen
CPT/HCPCS: 36415; 93005; 85379; 80053; 82728; 83605; 83615; 83735; 85025; 85610; 85730; 86140; 87040; 87502; 84145; 87635; 71045; 99285; 96374; 96375; 96361; U0003; J0696

== ENCOUNTER 2020-05-17 05:48 | Day surgery (SDC) | payer OTHER ==
[2020-05-15 10:37] VITALS: BMI 25.4
[~2020-05-17 05:48] MED LIST changes: -ACETAMINOPHEN TAB 500 MG TAB PO STA; -DEXAMETHASONE SOD PHOSPHATE 10 MG/ML 1 ML VIAL IV ONE; +DEXAMETHASONE SOD PHOSPHATE 4 MG/ML 1 ML VIAL IV ONE; -GABAPENTIN 300 MG CAP PO STA; -HEPARIN SODIUM,PORCINE 5,000 UNIT/ML 1 ML VIAL SQ ONE; +HYDROmorphone 0.5 MG/0.5 ML SYRINGE IVP PRN; -LIDOCAINE 1% (10MG/ML) FOR IV START INTRADERMA PRN; +Pre Op ABX Message 1 EACH MISC MISCELLANE ONE; -SCOPOLAMINE 1.5MG/72HR PATCH TRANSDERM ONE; -TAMSULOSIN 0.4 MG CAP.ER.24H PO STA
[2020-05-17 06:43] VITALS: RESP 16
[2020-05-17] MEDS ORDERED: LIDOCAINE 1% (10MG/ML) FOR IV START INTRADERMA ONE (06:43)
[2020-05-17] MEDS ORDERED: TAMSULOSIN 0.4 MG CAP.ER.24H PO STA (06:56)
[2020-05-17] MEDS ORDERED: ACETAMINOPHEN TAB 500 MG TAB PO STA (06:56)
[2020-05-17] MEDS ORDERED: GABAPENTIN 300 MG CAP PO STA (06:56)
[2020-05-17] MEDS ORDERED: MELOXICAM 7.5 MG TAB PO STA (06:56)
--- NOTE | 2020-05-17 06:58 | P.GSHP ---
History of Present Illness H&P Date: 05/17/20 CHIEF COMPLAINT: History of intra-abdominal adhesions HISTORY OF PRESENT ILLNESS: The patient is a 50-year-old male who presents with history of intra-abdominal adhesions from multiple prior surgeries including increasing abdominal pain. He now presents for diagnostic laparoscopy including lysis of adhesions. PAST MEDICAL HISTORY: Please see list. PAST SURGICAL HISTORY: Please see list. MEDICATIONS: Please see list. ALLERGIES: Please see list. SOCIAL HISTORY:Please see list. FAMILY HISTORY: Please see list. REVIEW OF ORGAN SYSTEMS: CONSTITUTIONAL: No reports of fevers or chills. PHYSICAL EXAM: VITAL SIGNS: Stable GENERAL: Well-developed pleasant and in no acute distress. HEENT: No scleral icterus. Extraocular movements grossly intact. Moist buccal mucosa. NECK: Supple without lymphadenopathy. CHEST: Unlabored respirations. Equal bilateral excursions. CARDIOVASCULAR: Regular rate and rhythm. Distal 2+ pulses. ABDOMEN: Soft, diffuse abdominal tenderness. No peritonitis. MUSCULOSKELETAL: No clubbing, cyanosis, or edema. ASSESSMENT: 1. Diffuse abdominal pain. 2. History of multiple abdominal surgeries. 3. Intra-abdominal adhesions. PLAN: 1. Robotic lysis of adhesions were described in detail including risk of injury to the intestine, need for further surgery, and open technique. 2. DVT prophylaxis. 3. Antibiotic prophylaxis. Past Medical History Past Medical History: Blood Disorder, GI Bleed, Pulmonary Embolus (PE) Additional Past Medical History / Comment(s): Hx. perforated diverticuli with bowel resection/colostomy and colostomy reversal, Hereditary Spherocytosis(Blood Disorder), Pulmonary Embolism after Colostomy Reversal 2015. History of Any Multi-Drug Resistant Organisms: None Reported Past Surgical History: Appendectomy, Back Surgery, Bowel Resection, Cholecystectomy, Hernia Repair, Orthopedic Surgery Additional Past Surgical History / Comment(s): Colonoscopies, bowel resection and colostomy due to ruptured diverticuli, 06/25/15, open colostomy reversal, splenectomy, lumbar laminectomy/discectomy L5-S1, right rotator cuff, left knee arthroscopy. Past Anesthesia/Blood Transfusion Reactions: No Reported Reaction Additional Past Anesthesia/Blood Transfusion Reaction / Comment(s): Pt has received blood without reaction. Smoking Status: Never smoker - Past Family History Father Family Medical History: Blood Disorder Additional Family Medical History / Comment(s): Father had Spherocytosis. He had leg ulcers and at age 44 yrs. Mother Additional Family Medical History / Comment(s): Mother has colitis. She is living. Sister(s) Family Medical History: Blood Disorder, Deep Vein Thrombosis (DVT) Additional Family Medical History / Comment(s): Sister had blood clot after surgery and was found to have elevated Factor 8. Medications and Allergies Home Medications Medication Instructions Recorded Confirmed Type No Known Home Medications 05/15/20 05/17/20 History Allergies Allergy/AdvReac Type Severity Reaction Status Date / Time No Known Allergies Allergy Verified 05/17/20 06:20 Surgical - Exam Vital Signs Temp Pulse Resp BP Pulse Ox 96.9 F L 76 16 132/80 97 05/17/20 06:25 05/17/20 06:25 05/17/20 06:25 05/17/20 06:25 05/17/20 06:25
[2020-05-17] MEDS ORDERED: HEPARIN SODIUM,PORCINE 5,000 UNIT/ML 1 ML VIAL SQ STA (07:02)
[2020-05-17] MEDS ORDERED: MIDAZOLAM 2 MG/2 ML VIAL IV ONE (07:14)
[2020-05-17] MEDS ORDERED: NEOSTIGMINE 1 MG/ML 10 ML VIAL ONE (07:38)
[2020-05-17] MEDS ORDERED: fentaNYL (PF) 50 MCG/ML 2 ML AMP ONE (07:38)
[2020-05-17] MEDS ORDERED: SUCCINYLCHOLINE CHLORIDE 100 MG/5 ML SYR IV ONE (07:38)
[2020-05-17] MEDS ORDERED: MIDAZOLAM 2 MG/2 ML VIAL ONE (07:38)
[2020-05-17] MEDS ORDERED: GLYCOPYRROLATE 0.2 MG/ML 2 ML VIAL ONE (07:38)
[2020-05-17] MEDS ORDERED: ROCURONIUM 10 MG/ML (5 ML VIAL) IV ONE (07:38)
[2020-05-17] MEDS ORDERED: PROPOFOL 10 MG/ML 20 ML VIAL IV ONE (07:38)
[2020-05-17] MEDS ORDERED: ROPIVACAINE 5 MG/ML 30 ML VIAL ONE (07:38)
[2020-05-17] MEDS ORDERED: LIDOCAINE 1% INJ 10MG/ML (20 ML MDV) ONE (07:38)
[2020-05-17] MEDS ORDERED: LIDOCAINE 1%-EPI 1:100,000 20 ML VIAL SQ ONE (07:44)
--- NOTE | 2020-05-17 09:52 | P.OP ---
Date of Procedure: 05/17/20 Description of Procedure: SURGEON: JYOTI DANIELS MD PREOPERATIVE DIAGNOSES: 1. History of severe peritoneal adhesions with left lower quadrant abdominal pain 2. History of perforated diverticulitis 3. History of colostomy creation, with reversal 4. Hereditary spherocytosis 5. History of splenectomy 6. History of pulmonary embolism 7. History of incisional hernia repairs POSTOPERATIVE DIAGNOSES: 1. History of severe peritoneal adhesions with left lower quadrant abdominal pain 2. History of perforated diverticulitis 3. History of colostomy creation, with reversal 4. Hereditary spherocytosis 5. History of splenectomy 6. History of pulmonary embolism 7. History of incisional hernia repairs 8. Severe peritoneal adhesions OPERATION: 1. Robotic-assisted da Laurence Xi laparoscopic extensive lysis of adhesions over 1.5 hours Anesthesia: GETA, regional, local Estimated Blood Loss (ml): 5 Pathology: none sent Condition: stable Disposition: floor COMPLICATIONS: None. Operative Findings: 1. Severe peritoneal adhesions greater omentum to abdominal wall midline, left lower quadrant, right lower quadrant, midline requiring over 1.5 hours extensive lysis of adhesions using vessel sealer and EndoShears with cautery 2. No recurrent ventral wall hernias INDICATIONS: The patient is a 50-year-old male who presents with a personal history of multiple abdominal surgeries including abdominal wall hernias. Surgical intervention with laparoscopic versus robotic and open techniques were reviewed. Placement of mesh was also reviewed. Benefits and risks were described including but not limited to pain, infection, recurrence, adhesions with mesh. Informed consent was obtained. DESCRIPTION OF PROCEDURE: The patient was brought into the operating room and laid in supine position. After general induction, the abdomen had been prepped and draped in standard sterile fashion. Ioban draping was also placed. Prior to incision, a timeout protocol was confirmed with surgical team regarding the patient's name including procedures to be performed. The robot was primed prior to the procedure. A field block using local anesthetic was placed along hernia site including the proposed port sites. Initial incision was made with an #11 blade along the left upper quadrant. A 0 degree 5 mm laparoscopic trocar entry was performed and insufflated. Dense adhesions were found along the epigastrium including bilateral lower abdomen, midline, left upper quadrant. Carefully, the camera was advanced to the right lateral abdominal wall for placement of ports. Three 8 mm ports were placed along the right lateral abdominal wall under direct localization. Placements of the ports were 15 cm from the target anatomy and 10 cm apart. The da Laurence Xi robot was previously primed, prepped and draped then docked from the right side of the patient. I then sat at the robot Da Laurence Xi console where working arms of the robot including Bovie cautery connected to robotic scissors, vessel sealer, needle rolloff driver, and graspers placed by the psychologist research assistant. To address the dense adhesions along the abdominal wall, greater omentum to the abdominal wall was found. Combination of sharp dissection using EndoShears with cautery including Vessel sealer was performed carefully without enterotomies. Extensive lysis of adhesions over 1.5 hours was performed of the upper abdomen, midline including, lower abdomen. Interloop adhesions along the lower abdomen particularly the left lower abdomen were lysed using scissors without enterotomies. At the mid abdomen, mesh was oversewn using 2-0 VLOC nonabsorbable 9 inch suture following extensive adhesional lysis to repair the mesh. A final endoscopic imaging was obtained. All instruments and pneumoperitoneum were evacuated from the abdominal cavity. The da Laurence Xi robot was undocked from the patient. I re-scrubbed into the case for closure of incisions. The fascia of the 12-mm port was probed and less than 8-mm in size. The incisions were re-approximated using 4-0 Monocryl in an interrupted subcuticular fashion. Liquid glue was applied to the skin after cleansing the skin with normal saline and dilute hydrogen peroxide. At the end of the procedure, needle, sponge, and instrument count had been verified correct by assembler surgical garment. The patient was taken to the postanesthesia care unit in stable condition. Plan - Discharge Summary Discharge Rx Participant: No New Discharge Prescriptions: New Ibuprofen [Motrin] 600 mg PO Q8HR PRN #30 tab PRN Reason: Pain Acetaminophen Tab [Tylenol Tab] 1,000 mg PO Q6HR PRN #30 tablet PRN Reason: Pain Discharge Medication List Acetaminophen Tab [Tylenol Tab] 1,000 mg PO Q6HR PRN #30 tablet 05/17/20 [Rx] Ibuprofen [Motrin] 600 mg PO Q8HR PRN #30 tab 05/17/20 [Rx] Follow up Appointment(s)/Referral(s): Jyoti Daniels MD [STAFF PHYSICIAN] - 05/22/20 Patient Instructions/Handouts: Lysis of Abdominal Adhesions (IP), *[facility] - Managing Your Pain After Surgery Without Opioids Activity/Diet/Wound Care/Special Instructions: No lifting over 10 pounds in 2 weeks, May 31. July shower. No bath tub soaks for two weeks, May 31. Diet as tolerated. Use Tylenol and ibuprofen or Aleve scheduled for the next 24-48 hours for best pain relief. Use ice along incisions for today to prevent swelling. Discharge Disposition: HOME SELF-CARE
[2020-05-17 10:04] VITALS: TEMP 97.2
[2020-05-17] MEDS ORDERED: IBUPROFEN 200 MG TAB PO ONE (13:23)
[2020-05-17 13:34] VITALS: BP 117/66; PULSE 88
--- NOTE | 2020-05-28 10:59 | P.ANPRN ---
Procedure Note - Anesthesia - Nerve Block Performed Bilateral Erector Spinae Single Time Out Performed: Yes Date of Procedure: 05/17/20 Procedure Start Time: :14 Procedure Stop Time: :24 Location of Patient: PreOp Indication: Acute Post-Operative Pain, Requested by Surgeon Sedation Type: Sedate with meaningful contact maintained Preparation: Sterile Prep Position: Prone Needle Types: Pajunk Needle Gauge: 21 Ultrasound used to visualize needle placement: Yes Ultrasound used to observe medication spread: Yes Blood Aspirated: No Pain Paresthesia on Injection Noted: No Resistance on Injection: Normal Image Stored and Saved: Yes Events: Uneventful and Well Tolerated (ropi .25% 30cc bilaterally)
== END 2020-05-17 14:05 | disposition home or self-care (01) ==
LOC: OR 05:48
PROVIDERS: ATTEND Surgery Plastic and Reconstructive Surgery
DX: K66.0 Peritoneal adhesions (postprocedural) (postinfection) (principal); D58.0 Hereditary spherocytosis; R00.0 Tachycardia, unspecified; Z98.890 Other specified postprocedural states; Z87.19 Personal history of other diseases of the digestive system; Z86.711 Personal history of pulmonary embolism; Z90.49 Acquired absence of other specified parts of digestive tract; Z90.81 Acquired absence of spleen; Z83.2 Family history of diseases of the blood and blood-forming organs and certain disorders involving the immune mechanism; Z84.0 Family history of diseases of the skin and subcutaneous tissue; Z83.79 Family history of other diseases of the digestive system; Z82.49 Family history of ischemic heart disease and other diseases of the circulatory system
CPT/HCPCS: 49329; 64461; S2900

== ENCOUNTER → 2020-06-20 | Outpatient (CLI) | payer OTHER ==
[2020-06-20 08:01] VITALS: BP 138/74; PULSE 69; RESP 18; TEMP 97.8
--- NOTE | 2020-06-20 08:19 | P.PAINCN ---
History of Present Illness - Reason for Consult Consult date: 06/20/20 - History of Present Illness This is 51 years old male with a chronic history of severe abdominal pain, darted to 5 years ago and he had expected laparotomy and multiple surgical interventions on his abdomen, loading robotic colostomy and reversal of the colostomy, and recently had robotic lysis of peritoneal adhesions, he continues to have abdominal pain after the surgery, the pain mostly localized in the left lower quadrant(below and lateral to the umbilical area), the pain is constant, is not associated with nausea or vomiting, not related to food type,not related food consumption, he denies any change in bowel habits, he denies any fever, headache denies any motor or sensory deficit Past Medical History Past Medical History: Blood Disorder, GI Bleed, Pulmonary Embolus (PE) Additional Past Medical History / Comment(s): Hx. perforated diverticuli with bowel resection/colostomy and colostomy reversal, Hereditary Spherocytosis(Blood Disorder), Pulmonary Embolism after Colostomy Reversal 2015. History of Any Multi-Drug Resistant Organisms: None Reported Past Surgical History: Appendectomy, Back Surgery, Bowel Resection, Cholecystectomy, Hernia Repair, Orthopedic Surgery Additional Past Surgical History / Comment(s): Colonoscopies, bowel resection and colostomy due to ruptured diverticuli, 06/25/15, open colostomy reversal, splenectomy, lumbar laminectomy/discectomy L5-S1, right rotator cuff, left knee arthroscopy. Past Anesthesia/Blood Transfusion Reactions: No Reported Reaction Additional Past Anesthesia/Blood Transfusion Reaction / Comm: Pt has received blood without reaction. Past Psychological History: No Psychological Hx Reported Additional Psychological History / Comment(s): Pt resides with his spouse and children. He is independent. He uses no assistive device. He does not currently drive due to recent surgery. Smoking Status: Never smoker Past Alcohol Use History: Occasional Past Drug Use History: None Reported - Past Family History Father Family Medical History: Blood Disorder Additional Family Medical History / Comment(s): Father had Spherocytosis. He had leg ulcers and at age 44 yrs. Mother Additional Family Medical History / Comment(s): Mother has colitis. She is living. Sister(s) Family Medical History: Blood Disorder, Deep Vein Thrombosis (DVT) Additional Family Medical History / Comment(s): Sister had blood clot after surgery and was found to have elevated Factor 8. Medications and Allergies Home Medications Medication Instructions Recorded Confirmed Type Acetaminophen Tab [Tylenol Tab] 1,000 mg PO Q6HR PRN #30 tablet 05/17/20 06/18/20 Rx Ibuprofen [Motrin] 600 mg PO Q8HR PRN #30 tab 05/17/20 06/18/20 Rx Allergies Allergy/AdvReac Type Severity Reaction Status Date / Time No Known Allergies Allergy Verified 05/17/20 06:20 Physical Exam Vitals: Vital Signs Temp Pulse Resp BP Pulse Ox 06/20/20 07:57 97.8 F 69 18 138/74 98 Physical Examinations : -Constitutiona : Cooperative , not in acute distress . -HEENT : nech : supple , no Lymphadenopathy , normal thyroid size . : eyes : no ptosis , no icterus, no photophobia . - neurologic : Cranial nerve II to XII intact , no focal neurological deffecit . -psychatric : alert , oriented X 3 , appropriate affect , intact judgment and insight . -Lymphatic : no Lymphadenopathy . -Gastrointestina : Multiple scar and abdominal wall hand appropriately Tenderness in the left lower quadrant of the abdomen The numbness below the left side of the umbilical No organomegaly. No discharge. - musculoskeltal : Lumber spine moter stegnth lower extremities ,thigh and legs 5/5 Right side , 5/5 Left side Assessment and Plan Plan: Assessment and plan=1-chronic abdominal wall pain.( Left lower quadrant ) he continue to have severe abdominal pain after multiple surgical interventions. Patient could benefit from left transverse abdominal pain block under ultrasound guidance (will inject local anesthetic and steroid) Patient could benefit from tricyclic antidepressant amitriptyline 10 mg daily at bedtime(trying to avoid any controlled substance use ) Time with Patient: Greater than 30 PQRS Measure Charge Sheet Measure #130: Documentation of Current Meds in Medical Chart: Patient's medications documented in chart Measure #226: Tobacco Use: Screen & Cessation Intervention: Pt not a tobacco user Measure #111: Pneumonia Vaccination: Pneumococcal vaccine administered or previously received Measure #47: Advance Care Plan: Advance care planning discussed & documented, pt chose/unable to give Measure #412: Opioid Treatment Agreement: No documentation of signed opioid treatment agreement Measure #408: Opioid Therapy Follow-up Evaluation: Patient had NO f/u eval minimum every 3 months during opioid therapy Measure #317: Preventitive Care & Scrn High Bld Press & F/U: Normal blood pressure, f/u not required Measure #128: Body Mass Index (BMI) Screening & Follow-up: BMI documented ABOVE normal parameters - f/u documented Measure #131: Pain Assessment & Follow-up: Pain positive & plan documented, Follow-up scheduled Measure #431: Unhealthy Alcohol Use Preventative Care & Scrn: Patient not identified as an unhealthy alcohol user PQRS Narrative: Smoking Status Never smoker Blood Pressure 138/74 Pain Intensity [Abdomen] 3 Scale Used Numeric (1 - 10) Hx Alcohol Use (MH) Yes: occ Home Medications: Ambulatory Orders Acetaminophen Tab [Tylenol Tab] 1,000 mg PO Q6HR PRN #30 tablet 05/17/20 Ibuprofen [Motrin] 600 mg PO Q8HR PRN #30 tab 05/17/20
== END ==
LOC: PNWHC3 07:35
PROVIDERS: ATTEND Specialist
DX: R10.32 Left lower quadrant pain (principal); G89.29 Other chronic pain
CPT/HCPCS: 99211

== ENCOUNTER 2020-07-16 08:47 | Day surgery (SDC) | payer OTHER ==
[2020-07-11 13:00] VITALS: BMI 25.4
--- NOTE | 2020-07-16 07:20 | P.GSHP ---
History of Present Illness H&P Date: 07/16/20 CHIEF COMPLAINT: Inguinal hernia, left HISTORY OF PRESENT ILLNESS: The patient is a 50-year-old male who presents with a history of swelling and pain along the left groin. He's noted increased swelling including pain of the area. Now he presents for repair of his inguinal hernia. He has history of multiple abdominal surgeries and peritoneal adhesions. PAST MEDICAL HISTORY: Please see list. PAST SURGICAL HISTORY: Please see list. MEDICATIONS: Please see list. ALLERGIES: Please see list. SOCIAL HISTORY: No illicit drug use FAMILY HISTORY: No reports of Crohn disease. REVIEW OF ORGAN SYSTEMS: CONSTITUTIONAL: No reports of fevers or chills. PHYSICAL EXAM: VITAL SIGNS: Stable GENERAL: Well-developed pleasant male in no acute distress. HEENT: No scleral icterus. Extraocular movements grossly intact. Moist buccal mucosa. NECK: Supple without lymphadenopathy. CHEST: Unlabored respirations. Equal bilateral excursions. CARDIOVASCULAR: Regular rate and rhythm. Distal 2+ pulses. ABDOMEN: Soft, nondistended. No peritoneal signs. Palpable defect of the left groin. MUSCULOSKELETAL: No clubbing, cyanosis, or edema. ASSESSMENT: 1. Inguinal hernia, left 2. History of adhesions. PLAN: 1. Recommend proceeding with a robotic inguinal repair with mesh with possible bilateral approach. 2. Benefits and risks of surgical intervention was discussed including possibility of open technique. 3. DVT prophylaxis. 4. Antibiotic prophylaxis. Past Medical History Past Medical History: Blood Disorder, GI Bleed, Pulmonary Embolus (PE) Additional Past Medical History / Comment(s): left inguinal hernis, Hx. perforated diverticuli with bowel resection/colostomy and colostomy reversal, Hereditary Spherocytosis(Blood Disorder), Pulmonary Embolism after Colostomy Reversal 2015. History of Any Multi-Drug Resistant Organisms: None Reported Past Surgical History: Appendectomy, Back Surgery, Bowel Resection, Cholecystectomy, Hernia Repair, Orthopedic Surgery Additional Past Surgical History / Comment(s): laproscopic lysis of adhesions 05/17/20, Colonoscopies, bowel resection and colostomy due to ruptured diverticuli, 06/25/15, open colostomy reversal, splenectomy, lumbar laminectomy/discectomy L5-S1, right rotator cuff, left knee arthroscopy. Past Anesthesia/Blood Transfusion Reactions: No Reported Reaction Additional Past Anesthesia/Blood Transfusion Reaction / Comment(s): Pt has received blood without reaction. Smoking Status: Never smoker - Past Family History Father Family Medical History: Blood Disorder Additional Family Medical History / Comment(s): Father had Spherocytosis. He had leg ulcers and at age 44 yrs. Mother Additional Family Medical History / Comment(s): Mother has colitis. She is living. Sister(s) Family Medical History: Blood Disorder, Deep Vein Thrombosis (DVT) Additional Family Medical History / Comment(s): Sister had blood clot after surgery and was found to have elevated Factor 8. Medications and Allergies Home Medications Medication Instructions Recorded Confirmed Type Acetaminophen Tab [Tylenol Tab] 1,000 mg PO Q6HR PRN #30 tablet 05/17/20 07/11/20 Rx Ibuprofen [Motrin] 600 mg PO Q8HR PRN #30 tab 05/17/20 07/11/20 Rx Amitriptyline HCl [Elavil] 10 mg PO PCHS PRN 06/20/20 07/11/20 History Allergies Allergy/AdvReac Type Severity Reaction Status Date / Time No Known Allergies Allergy Verified 07/11/20 12:57
[~2020-07-16 08:47] MED LIST changes: +ACETAMINOPHEN TAB 500 MG TAB PO PRN; +GABAPENTIN 300 MG CAP PO PRN; +HEPARIN SODIUM,PORCINE/PF 5,000 UNIT/0.5 ML SYRINGE SQ PRN; -LACTATED RINGERS 1,000 ML IV SCH; +LIDOCAINE 1% (10MG/ML) FOR IV START INTRADERMA PRN; +MELOXICAM 7.5 MG TAB PO PRN; +MIDAZOLAM 2 MG/2 ML VIAL IV PRN; -Pre Op ABX Message 1 EACH MISC MISCELLANE ONE; +TAMSULOSIN 0.4 MG CAP.ER.24H PO PRN
[2020-07-16] MEDS: LACTATED RINGERS 1,000 ML IV SCH ×3 (09:34→19:38)
[2020-07-16] MEDS ORDERED: ACETAMINOPHEN TAB 500 MG TAB ONE (09:42)
[2020-07-16 10:29] LABS: Basophils # (A) 0.1 k/uL (0-0.2); Basophils % (A) 2 %; Eosinophils # (A) 0.1 k/uL (0-0.7); Eosinophils % (A) 2 %; HCT 46.1 % (39.0-53.0); HGB 17.4 gm/dL (13.0-17.5); Hyperchromasia Marked; Lymphocytes # (A) 1.3 k/uL (1.0-4.8); Lymphocytes % (A) 17 %; MCH 31.7 pg (25.0-35.0); MCHC 37.7 g/dL (31.0-37.0); MCV 84.3 fL (80.0-100.0); Mean Platelet Volume 7.2; Monocytes # (A) 0.6 k/uL (0-1.0); Monocytes % (A) 8 %; Neutrophils # (A) 5.3 k/uL (1.3-7.7); Neutrophils % (A) 70 %; Platelet Count 463 k/uL (150-450); RBC 5.47 m/uL (4.30-5.90); RDW 12.7 % (11.5-15.5); WBC 7.6 k/uL (3.8-10.6)
[2020-07-16 10:47] LABS: ALT 29 U/L (4-49); AST 36 U/L (17-59); African American GFR (CKD) >90 (>60 ml/min/1.73 sqM); Albumin 4.7 g/dL (3.5-5.0); Alkaline Phosphatase 69 U/L (38-126); Anion Gap 8 mmol/L; Blood Urea Nitrogen 23 mg/dL (9-20); Calcium 9.5 mg/dL (8.4-10.2); Carbon Dioxide 24 mmol/L (22-30); Chloride 107 mmol/L (98-107); Glucose 85 mg/dL (74-99); Non-African American GFR(CKD) >90 (>60 ml/min/1.73 sqM); Potassium 4.7 mmol/L (3.5-5.1); Sodium 139 mmol/L (137-145); Total Bilirubin 2.5 mg/dL (0.2-1.3); Total Protein 8.1 g/dL (6.3-8.2)
[2020-07-16] MEDS ORDERED: MIDAZOLAM 2 MG/2 ML VIAL IV ONE (11:26)
[2020-07-16] MEDS ORDERED: fentaNYL (PF) 50 MCG/ML 2 ML AMP IV ONE (11:26)
--- NOTE | 2020-07-16 12:18 | P.ANPRN ---
Procedure Note - Anesthesia - Nerve Block Performed Bilateral Erector Spinae Time Out Performed: Yes (:) Date of Procedure: 07/16/20 Procedure Start Time: Procedure Stop Time: : Location of Patient: PreOp Indication: Acute Post-Operative Pain, Requested by Surgeon (Dr Espino) Sedation Type: Sedate with meaningful contact maintained Preparation: Sterile Prep Position: Prone Catheter: None Needle Types: Pajunk Needle Gauge: 21 Ultrasound used to visualize needle placement: Yes Ultrasound used to observe medication spread: Yes Injectate: 0.5% Ropivacaine (see comment for volume) (15cc +10cc PF normal saline each side) Blood Aspirated: No Pain Paresthesia on Injection Noted: No Resistance on Injection: Normal Image Stored and Saved: Yes Events: Uneventful and Well Tolerated
[2020-07-16] MEDS ORDERED: METOPROLOL TARTRATE 5 MG/5 ML VIAL IVP ONE (12:25)
[2020-07-16] MEDS ORDERED: SODIUM CHLORIDE 0.9% (PF) 10 ML VIAL ONE (12:25)
[2020-07-16] MEDS ORDERED: PROPOFOL 10 MG/ML 20 ML VIAL IV ONE (12:25)
[2020-07-16] MEDS ORDERED: SUCCINYLCHOLINE CHLORIDE 100 MG/5 ML SYR IV ONE (12:25)
[2020-07-16] MEDS ORDERED: LIDOCAINE 1% INJ 10MG/ML (20 ML MDV) ONE (12:25)
[2020-07-16] MEDS ORDERED: ROCURONIUM 10 MG/ML (5 ML VIAL) IV ONE (12:25)
[2020-07-16] MEDS ORDERED: NEOSTIGMINE 1 MG/ML 10 ML VIAL ONE (12:25)
[2020-07-16] MEDS ORDERED: ROPIVACAINE 5 MG/ML 30 ML VIAL ONE (12:25)
[2020-07-16] MEDS ORDERED: fentaNYL (PF) 50 MCG/ML 2 ML AMP ONE (12:25)
[2020-07-16] MEDS ORDERED: HYDROmorphone (PF) 1 MG/ML ONE (12:25)
[2020-07-16] MEDS ORDERED: GLYCOPYRROLATE 0.2 MG/ML 2 ML VIAL ONE (12:25)
[2020-07-16] MEDS ORDERED: LIDOCAINE 1%-EPI 1:100,000 20 ML VIAL SQ ONE (12:51)
[2020-07-16] MEDS ORDERED: LACTATED RINGERS 1,000 ML IV ONE ×2 (13:15→15:04)
[2020-07-16 16:00] VITALS: TEMP 98.2
--- NOTE | 2020-07-16 16:10 | P.OP ---
Date of Procedure: 07/16/20 Description of Procedure: SURGEON: JYOTI DANIELS MD PREOPERATIVE DIAGNOSES: 1. Initial left inguinal hernia 2. History of multiple abdominal surgeries with peritoneal adhesions 3. Chronic pain syndrome POSTOPERATIVE DIAGNOSES: 1. Initial left inguinal hernia, 3 cm incarcerated 2. History of multiple abdominal surgeries with peritoneal adhesions 3. Chronic pain syndrome 4. Severe diffuse intra-abdominal adhesions with intraloop adhesions OPERATION: 1. Robotic assisted da Laurence Xi laparoscopic lysis of adhesions over 2 hours 2. Robotic assisted da Laurence Xi laparoscopic reduction and repair of left inguinal hernia repair with ventralight ST mesh, 11.4 cm. Anesthesia: GETA, local Estimated Blood Loss (ml): 50 Pathology: other (Left inguinal sac) Condition: stable Disposition: floor COMPLICATIONS: None. Operative Findings: 1. Severe diffuse intra-abdominal adhesions greater omentum to abdominal wall from the subxiphoid to the pelvis along the midline. 2. Severe intraloop adhesions included incarcerated small bowel left inguinal hernia, direct, 3 cm 3. Dense small bowel to abdominal adhesions involving the pelvis was lysed. INDICATIONS: The patient is a 50-year-old gentleman who presents with history of left inguinal hernia. He has significant history of multiple intra-abdominal procedures with adhesions. Now presents for definitive surgical intervention. Laparoscopic versus open and robotic approaches were discussed. Benefits and risks including bleeding, infection, injury to the vas deferens as well as sterility and chronic groin pain were reviewed. Placement of mesh was also described. Informed consent was obtained. DESCRIPTION: In the preoperative area, the patient was marked with indelible marker along the left groin. The patient was brought to the operating room and laid in supine position. After general induction, the abdomen had been prepped and draped in standard sterile fashion. Ioban draping was also placed. Prior to incision, a timeout protocol was confirmed with surgical team regarding patient's name, second-generation cephalosporin Ancef 2 g given, heparin for DVT prophylaxis including procedures to be performed and location along the left groin. Local anesthetic was placed along the incision including for a groin block. Initial positioning for the robotic assisted ports were selected whereby 20 cm superior to the target anatomy, 0 degree 5 mm laparoscopic trocar entry was performed at the left upper quadrant. The abdomen was insufflated to 15 mmHg which he had tolerated well. Diagnostic laparoscopy demonstrated moderate omental adhesions involving subxiphoid to the midline and pelvis. Additionally the small bowel as incarcerated into the left groin with a large direct left inguinal hernia 3 cm in size. The right groin was unremarkable. Next, along the epigastrium, 8 mm robot trocar was placed. An 8-mm robotic trocar was placed under direct visualization at the right upper quadrant. Another 8 mm robotic trocar was placed along the left lateral abdominal wall. All trocars were positioned between 10-cm apart from each other. The patient was placed in steep reverse Trendelenburg position, 7. The Siamosoci XI robot was primed, draped, prepared for docking along the upper abdomen of the patient. I then went to the [employer] console. The social worker assistant was at bedside for exchange of the robot arms and equipment. Initial attention was brought to the severe intra-abdominal adhesions of the greater omentum to the abdominal wall including small bowel to the abdominal wall of the pelvis. Over 2 hours of extensive lysis of adhesions was performed using electro-Bovie cautery with scissors including vessel sealer. Care was provided to avoid enterotomies. Additionally intraloop adhesions along the pelvis were addressed with scissors. Incarcerated small bowel into the left inguinal hernia was reduced and viable. Defect was consistent with a direct left inguinal hernia. At the left groin, 3 cm direct inguinal hernia was identified. The hernia sac was evaginated whereby the peritoneum was scored using Endo scissors with cautery. The hernia sac had reached to the scrotum and was transected using Vessel sealer. Once completely reduced into the abdominal cavity, the peritoneal sac of the hernia was identified. The sac was resected and then passed off for further pathological analysis. The size of the hernia defect was 3 cm with intraoperative films obtained. Using a nonabsorbable 2-0 VLOC, the peritoneal defect of the left inguinal hernia site was closed using a pursestring suture. The defect was found to be completely closed with complete reduction of the left inguinal hernia was confirmed. As an onlay, an 11.[address] mesh by garbs was cut in half and entered into the abdominal cavity via the 8 mm trocar. The mesh was tacked to the pel vis using nonabsorbable 2-0 VLOC x 9-inch length sutures. The robot was undocked from the patient's bedside. I then rescrubbed into the case. Insufflation was released from the abdominal cavity and all instruments were removed from the abdominal cavity. The rest of incisions were reapproximated using 4-0 Monocryl in a running subcuticular fashion. Incisions were cleansed using dilute hydrogen peroxide. Liquid glue was applied to the skin. At the end of the procedure, the needle, sponge and instrument counts had been verified correct by the cook chill technician. The patient had tolerated the procedure well and was taken to the postanesthesia care unit in stable condition. Intraoperative findings were described to the patient's family who were pleased with the level of care. COMPLEXITY: Over 2 hours of extensive lysis of adhesions performed to address severe intra-abdominal adhesions of the subxiphoid, epigastrium, lower midline and pelvis as well as intraloop adhesions required to progress in the case. Adhesionolysis was performed using vessel sealer including scissors. Plan - Discharge Summary Discharge Rx Participant: No New Discharge Prescriptions: New Simethicone [Gas-X] 125 mg PO AC-TID PRN #20 capsule PRN Reason: Abdominal Distention Ibuprofen [Motrin] 600 mg PO Q8HR PRN #30 tab PRN Reason: Pain Acetaminophen Tab [Tylenol Tab] 1,000 mg PO Q6HR PRN #30 tablet PRN Reason: Pain Continue Amitriptyline HCl [Elavil] 10 mg PO PCHS PRN PRN Reason: Pain Discontinued Ibuprofen [Motrin] 600 mg PO Q8HR PRN #30 tab PRN Reason: Pain Acetaminophen Tab [Tylenol Tab] 1,000 mg PO Q6HR PRN #30 tablet PRN Reason: Pain Discharge Medication List Amitriptyline HCl [Elavil] 10 mg PO PCHS PRN 06/20/20 [History] Acetaminophen Tab [Tylenol Tab] 1,000 mg PO Q6HR PRN #30 tablet 07/16/20 [Rx] Ibuprofen [Motrin] 600 mg PO Q8HR PRN #30 tab 07/16/20 [Rx] Simethicone [Gas-X] 125 mg PO AC-TID PRN #20 capsule 07/16/20 [Rx] Follow up Appointment(s)/Referral(s): Jyoti Daniels MD [STAFF PHYSICIAN] - 07/24/20 Patient Instructions/Handouts: Lysis of Abdominal Adhesions (DC), Inguinal Hernia Repair (DC), Laparoscopic Herniorrhaphy (IP) Activity/Diet/Wound Care/Special Instructions: Using antibacterial soap. No lifting over 10 pounds 2 weeks, July 30July shower. No bathtub soaks for 2 weeks, July 30 Use ice along incisions for today to prevent swelling. Use simethicone, tylenol, ibuprofen scheduled for 2 days for best pain relief Discharge Disposition: HOME SELF-CARE
[2020-07-16] MEDS ORDERED: KETOROLAC 15 MG/ML 1 ML VIAL IVP ONE (16:54)
[2020-07-16 18:12] VITALS: BP 123/79; PULSE 83; RESP 20
== END 2020-07-16 19:52 | disposition home or self-care (01) ==
LOC: OR 08:47
PROVIDERS: ATTEND Surgery Plastic and Reconstructive Surgery
DX: K40.30 Unilateral inguinal hernia, with obstruction, without gangrene, not specified as recurrent (principal); K66.0 Peritoneal adhesions (postprocedural) (postinfection); D58.0 Hereditary spherocytosis; Z86.711 Personal history of pulmonary embolism; Z90.49 Acquired absence of other specified parts of digestive tract; Z90.89 Acquired absence of other organs; Z98.890 Other specified postprocedural states; Z90.81 Acquired absence of spleen; Z83.2 Family history of diseases of the blood and blood-forming organs and certain disorders involving the immune mechanism; Z83.79 Family history of other diseases of the digestive system; Z82.49 Family history of ischemic heart disease and other diseases of the circulatory system
CPT/HCPCS: 49650; S2900; 64999; 80053; 85025; 88302

== ENCOUNTER → 2020-08-15 | Outpatient (CLI) | payer OTHER ==
--- NOTE | 2020-08-15 08:22 | P.PN ---
Subjective Progress Note Date: 08/15/20 This is a 50-year-old gentleman with history of chronic abdominal pain status post recent inguinal hernia repair. The patient states that as soon as he woke up from anesthesia after his last surgery he felt burning sensation in the left thigh and weakness in both legs .the patient denies any symptoms like that previously. Patient denies new-onset weakness, bowel/bladder incontinence, or any other signs or symptoms of cauda equina syndrome. There are no signs of acute intoxication, and no indications of medication diversion or overuse. In addition to above, 13-point review of systems is also negative for chest pain, shortness of breath, changes in vision, changes in hearing, new onset weakness, abdominal pain, diarrhea, extreme fatigue, malaise, fever, skin changes, homicidal or suicidal ideation, or bowel or bladder incontinence. Vital Signs: Reviewed in EMR Gen: AAOx3, NAD HEENT: PERRLA,hearing grossly normal Pulm: resp unlabored Neck: supple, trachea midline Neuro exam of the lower extremities: Normal muscle strength bilaterally, decreased but symmetrical deep tendon reflexes bilaterally. Decreased sensation in the lateral aspect of the left thigh. Neuro: CN II-XII grossly intact, Imaging: Reviewed in EMR/chart Assessment: New onset paresthesia and pain in the anterior and lateral aspect of the left thigh status post erector spinae muscle block before his last abdominal surgery Chronic abdominal pain status post multiple abdominal surgeries, pain is improving after his last inguinal hernia repair Plan: 1. Explanation: Opioid and psychological risk scores were reviewed. Diagnoses, prognoses, and multiple treatment options including but not limited to physical therapy, interventional therapies, adjuvant medical therapies, narcotic medication therapies, and surgery were discussed with the patient and all questions were answered to the patient's satisfaction. 2. Opioid agreement: Signed with the patient and the patient is warned not to use opioids while driving or before driving and not to combine opioids with benzodiazepines or alcohol. 3. Counseling: The patient was counseled extensively on SMOKING CESSATION, BODY MASS INDEX, EXERCISE. Specifically, the patient was instructed regarding the importance of smoking cessation, obesity, and exercise in the context of both chronic pain and overall health. 4. Procedures: None 5. Consultations: Refer to neurology to rule out peripheral nerve injury 6. Investigations: EMG and nerve conduction test as per neurology 7. Medications: Continue Elavil 10 mg daily at bedtime #30 pills with one refill 8. Disposition: Return to clinic in 4 weeks 9. Maps were reviewed and were appropriate. Objective - Vital Signs Vital signs: Vital Signs Temp 98.2 F 08/15/20 07:58 Pulse 60 08/15/20 07:58 Resp 18 08/15/20 07:58 BP 124/72 08/15/20 07:58 Pulse Ox 96 08/15/20 07:58
== END ==
CPT/HCPCS: 99211

== ENCOUNTER 2020-09-15 22:30 | Emergency (ER) | payer OTHER ==
[2020-09-15 22:41] VITALS: BP 131/70; PULSE 83; RESP 18; TEMP 97.6
--- NOTE | 2020-09-15 23:02 | ED ---
Extremity Problem HPI - General Chief complaint: Extremity Problem,Nontraumatic Stated complaint: Swollen and pain in R leg Time Seen by Provider: 09/15/20 22:44 Source: patient, family Mode of arrival: ambulatory Limitations: no limitations - History of Present Illness Initial comments: This patient is a 50-year-old man who presents to be evaluated for right leg and calf pain. He also has noted some swelling there. The patient's relates this is been going on for a few days, but the patient states he really noticed it yesterday after he spent more the day on his feet at his son's open house. Patient does note history of previous PE but that was felt to be postsurgical after the patient had New's pouch. The patient does not take any anticoagulants. He has taken aspirin over the past day related to the pain and swelling. Patient denies fever or chills. No chest pain, dyspnea, cough, hemoptysis, palpitations or syncope. MD Complaint: extremity pain, extremity swelling -: days(s) Location: right, lower extremity Quality: aching Consistency: constant Improves with: rest Worsens with: walking Associated Symptoms: denies other symptoms - Related Data Home Medications Medication Instructions Recorded Confirmed Amitriptyline HCl [Elavil] 10 mg PO PCHS PRN 06/20/20 08/15/20 Previous Rx's Medication Instructions Recorded Acetaminophen Tab [Tylenol Tab] 1,000 mg PO Q6HR PRN #30 tablet 07/16/20 Ibuprofen [Motrin] 600 mg PO Q8HR PRN #30 tab 07/16/20 Simethicone [Gas-X] 125 mg PO AC-TID PRN #20 capsule 07/16/20 predniSONE 60 mg PO DAILY #30 tab 09/16/20 Allergies Allergy/AdvReac Type Severity Reaction Status Date / Time No Known Allergies Allergy Verified 09/15/20 22:41 Review of Systems ROS Statement: Those systems with pertinent positive or pertinent negative responses have been documented in the HPI. ROS Other: All systems not noted in ROS Statement are negative. Constitutional: Denies: fever, chills Respiratory: Denies: cough, dyspnea Cardiovascular: Denies: chest pain, palpitations, orthopnea, edema, syncope Gastrointestinal: Denies: abdominal pain, vomiting Musculoskeletal: Reports: myalgia (Right calf pain) Skin: Denies: rash Neurological: Denies: weakness, numbness Hematological/Lymphatic: Denies: easy bleeding Past Medical History Past Medical History: Blood Disorder, GI Bleed, Pulmonary Embolus (PE) Additional Past Medical History / Comment(s): left inguinal hernis, Hx. perforated diverticuli with bowel resection/colostomy and colostomy reversal, Hereditary Spherocytosis(Blood Disorder), Pulmonary Embolism after Colostomy Reversal 2015. History of Any Multi-Drug Resistant Organisms: None Reported Past Surgical History: Appendectomy, Back Surgery, Bowel Resection, Cholecystectomy, Hernia Repair, Orthopedic Surgery Additional Past Surgical History / Comment(s): laproscopic lysis of adhesions 05/17/20, Colonoscopies, bowel resection and colostomy due to ruptured diverticuli, 06/25/15, open colostomy reversal, splenectomy, lumbar laminectomy/discectomy L5-S1, right rotator cuff, left knee arthroscopy. Past Anesthesia/Blood Transfusion Reactions: No Reported Reaction Additional Past Anesthesia/Blood Transfusion Reaction / Comment(s): Pt has received blood without reaction. Past Psychological History: No Psychological Hx Reported Smoking Status: Never smoker Past Alcohol Use History: Occasional Past Drug Use History: None Reported - Past Family History Father Family Medical History: Blood Disorder Additional Family Medical History / Comment(s): Father had Spherocytosis. He had leg ulcers and at age 44 yrs. Mother Additional Family Medical History / Comment(s): Mother has colitis. She is living. Sister(s) Family Medical History: Blood Disorder, Deep Vein Thrombosis (DVT) Additional Family Medical History / Comment(s): Sister had blood clot after surgery and was found to have elevated Factor 8. General Exam Limitations: no limitations General appearance: alert, in no apparent distress Head exam: Present: atraumatic, normocephalic Respiratory exam: Present: normal lung sounds bilaterally. Absent: respiratory distress, wheezes, rales, rhonchi, stridor Cardiovascular Exam: Present: regular rate, normal rhythm, normal heart sounds. Absent: systolic murmur, diastolic murmur, rubs, gallop GI/Abdominal exam: Present: soft. Absent: distended, tenderness, guarding, rebound, rigid, mass Extremities exam: Present: normal inspection, full ROM, normal capillary refill, pedal edema (Trace edema at the right ankle), calf tenderness (Right-sided) Back exam: Present: normal inspection. Absent: CVA tenderness (R), CVA tenderness (L) Neurological exam: Present: alert. Absent: motor sensory deficit Skin exam: Present: warm, dry, intact, normal color. Absent: rash Course Vital Signs 09/15/20 22:37 Temperature 97.6 F Pulse Rate 83 Respiratory 18 Rate Blood Pressure 131/70 O2 Sat by Pulse 97 Oximetry Disposition Clinical Impression: Leg pain, posterior Disposition: HOME SELF-CARE Condition: Fair Instructions (If sedation given, give patient instructions): Leg Pain (ED) Prescriptions: predniSONE 60 mg PO DAILY #30 tab Is patient prescribed a controlled substance at d/c from ED?: No Referrals: Dc Wall DO [Primary Care Provider] - 1-2 days
--- NOTE | 2020-09-15 23:29 | US ---
EXAMINATION TYPE: US venous doppler duplex LE RT DATE OF EXAM: 09/15/2020 11:22 PM COMPARISON: NONE CLINICAL HISTORY: calf pain. hot, swollen, right leg with calf pain, no h/o dvt but has had PE 5+yrs ago SIDE PERFORMED: Right TECHNIQUE: The lower extremity deep venous system is examined utilizing real time linear array sonog elissa with graded compression, doppler sonography and color-flow sonography. VESSELS IMAGED: Common Femoral Vein Deep Femoral Vein Greater Saphenous Vein * Femoral Vein Popliteal Vein Small Saphenous Vein * Proximal Calf Veins (* superficial vessels) Right Leg: Negative for DVT IMPRESSION: No sign of deep vein thrombosis in the right leg.
== END 2020-09-16 00:36 | disposition home or self-care (01) ==
LOC: EC 22:30
DX: M79.661 Pain in right lower leg (principal); M79.89 Other specified soft tissue disorders
CPT/HCPCS: 99283

== ENCOUNTER → 2021-04-17 | Outpatient (CLI) | payer OTHER ==
--- NOTE | 2021-04-23 00:33 | MR ---
EXAMINATION TYPE: MR knee RT wo con DATE OF EXAM: 04/17/2021 COMPARISON: None HISTORY: RT POSTERIOR KNEE PAIN X1 YEAR Multiplanar multiecho imaging of the knee performed without contrast. There is a mild knee joint effusion. The anterior and posterior cruciate ligaments are intact. The la teral meniscus appears fairly normal. There is increased signal related to tear of the posterior horn medial meniscus extending to the free margin and also vertical defect through the body. The anterior horn of the medial meniscus appears i ntact. The collateral ligaments appear intact. There is a linear area of increased signal in the supe rior patella consistent with edema and significant bone bruise. This does not extend to the anterior surface and I do not suspect a fracture. IMPRESSION: Knee joint effusion. Horizontal and vertical tear through the posterior horn medial meniscus. No sign ificant joint space Narrowing. Mild bone bruise of the patella. No evidence of ligamentous tear.
== END | disposition home or self-care (01) ==
LOC: RADMRIMAIN 09:45
PROVIDERS: ATTEND Family Medicine
DX: S83.241A Other tear of medial meniscus, current injury, right knee, initial encounter (principal); M25.461 Effusion, right knee; M23.8X1 Other internal derangements of right knee; X58.XXXA Exposure to other specified factors, initial encounter

== ENCOUNTER → 2021-04-17 | Outpatient (CLI) | payer OTHER ==
--- NOTE | 2021-04-17 14:22 | US ---
EXAMINATION TYPE: US venous doppler duplex LE RT DATE OF EXAM: 04/17/2021 2:02 PM COMPARISON: US CLINICAL HISTORY: M79.661 pain in limb, R60.9 edema. Right popliteal fossa pain;prior PE in 2016, but no longer on blood thinners SIDE PERFORMED: Right TECHNIQUE: The lower extremity deep venous system is examined utilizing real time linear array sonog elissa with graded compression, doppler sonography and color-flow sonography. VESSELS IMAGED: Common Femoral Vein Deep Femoral Vein Greater Saphenous Vein * Femoral Vein Popliteal Vein Small Saphenous Vein * Proximal Calf Veins (* superficial vessels) Right Leg: Negative for DVT; small medial popliteal fossa cyst is noted = 3.7 x 1.9 x 1.2cm. IMPRESSION: 1. Right lower extremity ultrasound negative for deep venous thrombosis. 2. Note is made of the popliteal cyst right posterior right popliteal fossa.
== END | disposition home or self-care (01) ==
LOC: RADUSWWP 13:35
PROVIDERS: ATTEND Family Medicine
DX: M71.21 Synovial cyst of popliteal space [Baker], right knee (principal)

== ENCOUNTER → 2022-03-20 | Outpatient (CLI) | payer BC ==
--- NOTE | 2022-03-20 10:50 | CT ---
EXAMINATION TYPE: CT abdomen pelvis w con DATE OF EXAM: 03/20/2022 COMPARISON: 03/06/2018 HISTORY: Left sided abdominal pain CT DLP: 1383 mGycm CONTRAST: CT scan of the abdomen and pelvis is performed with Oral Contrast and with IV Contrast, patient injec eva with 70 mL of Isovue 300. FINDINGS: LUNG BASES-: No visible nodule. No infiltrate. LIVER/GB: The gallbladder surgically absent. No space occupying hepatic lesion. Biliary tree is of no rmal caliber. PANCREAS: No inflammation. No distinct mass. SPLEEN: No splenic enlargement. No lesion seen. ADRENALS: No nodule. No thickening. KIDNEYS/BLADDER: No hydronephrosis. No nephrolithiasis. No distinct renal mass. Urinary bladder g rossly unremarkable. BOWEL: Normal appendix. Sigmoid suture line compatible with prior surgical intervention. A few scatt ered diverticula without diverticulitis. Mildly thickened left lower quadrant jejunal loops may refle ct enteritis. The remaining small bowel is of normal caliber. No evidence for obstructive change. GENITAL ORGANS: No gross abnormality. LYMPH NODES: No greater than 1cm abdominal or pelvic lymph nodes are appreciated. AORTA: No significant abnormality. OSSEOUS STRUCTURES: No significant abnormality is seen. OTHER: No significant additional abnormality is seen. IMPRESSION: 1. Mildly thickened left lower quadrant jejunal loops may reflect enteritis.
== END | disposition home or self-care (01) ==
LOC: RADCTMAIN 08:19
PROVIDERS: ATTEND Family Medicine
DX: R10.814 Left lower quadrant abdominal tenderness (principal); K63.89 Other specified diseases of intestine
CPT/HCPCS: 74177; Q9967 ×2

== ENCOUNTER → 2022-04-24 | Outpatient (CLI) | payer BC | END | disposition home or self-care (01) | LOC: LABWHC1 08:18 | PROVIDERS: ATTEND Surgery Plastic and Reconstructive Surgery | DX: Z01.89 Encounter for other specified special examinations (principal); R94.31 Abnormal electrocardiogram [ECG] [EKG] | CPT/HCPCS: 36415; 93005 ==

== ENCOUNTER 2022-07-17 07:56 | Day surgery (SDC) | payer BC ==
[2022-07-14 15:27] VITALS: BMI 26.4
[~2022-07-17 07:56] MED LIST changes: -ACETAMINOPHEN TAB 500 MG TAB PO PRN; -GABAPENTIN 300 MG CAP PO PRN; +LACTATED RINGERS 1,000 ML IV SCH; -LIDOCAINE 1% (10MG/ML) FOR IV START INTRADERMA PRN; -MELOXICAM 7.5 MG TAB PO PRN; -MIDAZOLAM 2 MG/2 ML VIAL IV PRN; +Pre Op ABX Message 1 EACH MISC MISCELLANE ONE; -TAMSULOSIN 0.4 MG CAP.ER.24H PO PRN
--- NOTE | 2022-07-17 08:23 | P.GSHP ---
History of Present Illness H&P Date: 07/17/22 CHIEF COMPLAINT: History of intra-abdominal adhesions with abdominal pain HISTORY OF PRESENT ILLNESS: The patient is a 52-year-old male who presents with history of intra-abdominal adhesions from multiple prior surgeries including increasing abdominal pain worsening for over 3 months. He now presents for diagnostic laparoscopy including lysis of adhesions. PAST MEDICAL HISTORY: Please see list. PAST SURGICAL HISTORY: Please see list. MEDICATIONS: Please see list. ALLERGIES: Please see list. SOCIAL HISTORY: No illicit drug use FAMILY HISTORY: No reports of Crohn disease or ulcerative colitis. REVIEW OF ORGAN SYSTEMS: CONSTITUTIONAL: No reports of fevers or chills. GI: Denies any blood in stools or constipation. CARDIAC: History of abnormal EKG with cardiac risk assessment completed in 2 months. PHYSICAL EXAM: VITAL SIGNS: Stable GENERAL: Well-developed pleasant and in no acute distress. HEENT: No scleral icterus. Extraocular movements grossly intact. Moist buccal mucosa. NECK: Supple without lymphadenopathy. CHEST: Unlabored respirations. Equal bilateral excursions. CARDIOVASCULAR: Regular rate and rhythm. Distal 2+ pulses. ABDOMEN: Soft, lower abdominal tenderness. No peritonitis. MUSCULOSKELETAL: No clubbing, cyanosis, or edema. ASSESSMENT: 1. Lower abdominal pain. 2. History of multiple abdominal surgeries. 3. Intra-abdominal adhesions. PLAN: 1. Robotic lysis of adhesions were described in detail including risk of injury to the intestine, need for further surgery, and open technique. 2. DVT prophylaxis. 3. Antibiotic prophylaxis. Past Medical History Past Medical History: Blood Disorder, GI Bleed, Pulmonary Embolus (PE) Additional Past Medical History / Comment(s): left inguinal hernis, Hx. perforated diverticuli with bowel resection/colostomy and colostomy reversal, Hereditary Spherocytosis(Blood Disorder)-HAD SPLEEN REMOVED TO RESOLVE ISSUE, Pulmonary Embolism after Colostomy Reversal 2015. History of Any Multi-Drug Resistant Organisms: None Reported Past Surgical History: Appendectomy, Back Surgery, Bowel Resection, Cholecystectomy, Hernia Repair, Orthopedic Surgery Additional Past Surgical History / Comment(s): laproscopic lysis of adhesions 05/17/20, Colonoscopies, bowel resection and colostomy due to ruptured diverticuli, 06/25/15, open colostomy reversal, splenectomy, lumbar laminectomy/discectomy L5-S1, right rotator cuff, left knee arthroscopy. Past Anesthesia/Blood Transfusion Reactions: No Reported Reaction Additional Past Anesthesia/Blood Transfusion Reaction / Comment(s): Pt has received blood without reaction. Smoking Status: Never smoker - Past Family History Father Family Medical History: Blood Disorder Additional Family Medical History / Comment(s): Father had Spherocytosis. He had leg ulcers and at age 44 yrs. Mother Additional Family Medical History / Comment(s): Mother has colitis. She is living. Sister(s) Family Medical History: Blood Disorder, Deep Vein Thrombosis (DVT) Additional Family Medical History / Comment(s): Sister had blood clot after surgery and was found to have elevated Factor 8. Medications and Allergies Home Medications Medication Instructions Recorded Confirmed Type No Known Home Medications 07/14/22 07/14/22 History Allergies Allergy/AdvReac Type Severity Reaction Status Date / Time No Known Allergies Allergy Verified 07/14/22 15:17
[2022-07-17] MEDS ORDERED: ACETAMINOPHEN TAB 500 MG TAB PO STA (08:24)
[2022-07-17] MEDS ORDERED: TAMSULOSIN 0.4 MG CAP.ER.24H PO STA (08:24)
[2022-07-17] MEDS ORDERED: MELOXICAM 7.5 MG TAB PO SCH (09:00)
[2022-07-17] MEDS ORDERED: MIDAZOLAM 2 MG/2 ML VIAL IVP ONE (09:13)
[2022-07-17] MEDS ORDERED: BUPIVACAIN-EPI 0.25%-1:200,000 30 ML VIAL SQ ONE ×2 (09:17→10:59)
[2022-07-17 09:19] LABS: ALT 28 U/L (4-49); AST 28 U/L (17-59); African American GFR (CKD) >90 (>60 ml/min/1.73 sqM); Albumin 4.3 g/dL (3.5-5.0); Alkaline Phosphatase 61 U/L (38-126); Anion Gap 6 mmol/L; Blood Urea Nitrogen 20 mg/dL (9-20); Calcium 9.1 mg/dL (8.4-10.2); Carbon Dioxide 26 mmol/L (22-30); Chloride 108 mmol/L (98-107); Glucose 86 mg/dL (74-99); Non-African American GFR(CKD) >90 (>60 ml/min/1.73 sqM); Potassium 4.5 mmol/L (3.5-5.1); Sodium 140 mmol/L (137-145); Total Bilirubin 2.3 mg/dL (0.2-1.3); Total Protein 7.5 g/dL (6.3-8.2)
[2022-07-17 09:36] LABS: Basophils # (A) 0.1 k/uL (0-0.2); Basophils % (A) 1 %; Eosinophils # (A) 0.2 k/uL (0-0.7); Eosinophils % (A) 3 %; HCT 43.6 % (39.0-53.0); HGB 16.3 gm/dL (13.0-17.5); Hyperchromasia Marked; Lymphocytes # (A) 1.6 k/uL (1.0-4.8); Lymphocytes % (A) 24 %; MCH 31.1 pg (25.0-35.0); MCHC 37.3 g/dL (31.0-37.0); MCV 83.2 fL (80.0-100.0); Mean Platelet Volume 7.7; Monocytes # (A) 0.6 k/uL (0-1.0); Monocytes % (A) 9 %; Neutrophils # (A) 3.9 k/uL (1.3-7.7); Neutrophils % (A) 60 %; Platelet Count 365 k/uL (150-450); Poikilocytosis Slight; RBC 5.23 m/uL (4.30-5.90); RDW 13.5 % (11.5-15.5); WBC 6.4 k/uL (3.8-10.6)
[2022-07-17 09:40] VITALS: TEMP 97.9
[2022-07-17] MEDS ORDERED: LIDOCAINE 2% INJ 20 MG/ML (2 ML VIAL) ONE (10:23)
[2022-07-17] MEDS ORDERED: DEXAMETHASONE SOD PHOSPHATE 4 MG/ML 1 ML VIAL ONE (10:23)
[2022-07-17] MEDS ORDERED: GLYCOPYRROLATE 0.2 MG/ML 2 ML VIAL ONE (10:23)
[2022-07-17] MEDS ORDERED: ROCURONIUM 10 MG/ML (5 ML VIAL) IV ONE (10:23)
[2022-07-17] MEDS ORDERED: SUCCINYLCHOLINE CHLORIDE 200 MG/10 ML VIAL IV ONE (10:23)
[2022-07-17] MEDS ORDERED: ROPIVACAINE 5 MG/ML 30 ML VIAL ONE (10:23)
[2022-07-17] MEDS ORDERED: PROPOFOL 10 MG/ML 20 ML VIAL IV ONE (10:23)
[2022-07-17] MEDS ORDERED: fentaNYL (PF) 50 MCG/ML 2 ML AMP ONE (10:23)
[2022-07-17] MEDS ORDERED: SODIUM CHLORIDE 0.9% (PF) 10 ML VIAL ONE (10:23)
[2022-07-17] MEDS ORDERED: NEOSTIGMINE 1 MG/ML 10 ML VIAL ONE (10:23)
[2022-07-17] MEDS ORDERED: LACTATED RINGERS 1,000 ML IV ONE ×2 (10:53→14:30)
[2022-07-17 12:30] LABS: Spherocytes Present
[2022-07-17 14:09] VITALS: RESP 15
[2022-07-17 15:16] VITALS: BP 122/77; PULSE 94
--- NOTE | 2022-07-17 22:32 | P.OP ---
Date of Procedure: 07/17/22 Description of Procedure: SURGEON: JYOTI DANIELS MD PREOPERATIVE DIAGNOSES: 1. Intractable left lower quadrant 2. History of multiple abdominal surgeries 3. History of peritoneal adhesions 4. Abnormal EKG 5. Hereditary spherocytosis status post splenectomy 6. Personal history of ruptured diverticulitis with sepsis status post colostomy POSTOPERATIVE DIAGNOSES: 1. Severe peritoneal adhesions greater omentum to the abdominal wall with Intractable left lower quadrant 2. History of multiple abdominal surgeries 3. History of peritoneal adhesions 4. Abnormal EKG 5. Hereditary spherocytosis status post splenectomy 6. Personal history of ruptured diverticulitis with sepsis status post colostomy OPERATION: 1. Robotic-assisted da Laurence Xi laparoscopic extensive lysis of adhesions over 1.5 hrs COMPLICATIONS: None. Anesthesia: GETA, local Estimated Blood Loss (ml): 30 Pathology: none sent Condition: stable Disposition: same day OPERATIVE FINDINGS: 1. Severe peritoneal adhesions involving abdominal wall, left lower quadrant, intraloop adhesions, left groin 2. No recurrent incisional hernia 3. Left inguinal hernia mesh with adhesions and weakness, lower flap INDICATIONS: The patient is a 52-year-old male with intractable left lower quadrant abdominal pain including personal history of multiple abdominal surgeries due to perforated diverticulitis and sepsis and prior incisional inguinal hernia repairs. Surgical intervention of lysis of adhesions was described given his history of severe adhesive band disease. Informed consent was obtained. Robotic assisted laparoscopic approach was described. Benefits and risks of the procedure including but not limited to bleeding, infection, injury to the small bowel was described. Informed consent was obtained. DESCRIPTION OF PROCEDURE: Patient was brought to the operating room, placed in supine position. After general induction, the abdomen had been prepped and draped in standard sterile fashion. The robotic da Laurence XI system was primed. After a timeout protocol was performed, the patient had been prepped and draped in standard sterile fashion. The robot was docked along the right lateral abdomen. The patient was repositioned in reverse Trendelenburg position of 14- degrees. A 5 mm 0 degrees laparoscopic trocar entry was performed along the left upper quadrant. The abdomen was insufflated to 15 mmHg pressure which he tolerated well. Diagnostic laparoscopy demonstrated severe intra-abdominal adhesions involving the midline and pelvis/left inguinal area. Localized small bowel dilation along the left lower quadrant with adhesive bands identified. Next, three 8 mm robotic ports were placed along the right lateral abdominal wall. The 5 mm trocar and left upper quadrant was upsized to a 12 mm trocar by the geriatric assistant. Instruments were interchanged using 3 ports for a grasper, vessel sealer, and scissors with cautery. Instruments were interchanged by the geriatric assistant including Bovie cautery scissors. I had sat at the console. Extensive lysis of adhesions over 1.5 hours was performed using vessel sealer and scissors cart. Carefully the adhesions were sharply and bluntly taken down without injury to the small bowel. Mesh repair was identified along the abdominal wall including the left groin. Intraloop adhesions of the left lower quadrant were identified consistent with pain. Weakness along the inferior flap of inguinal hernia repair was identified after extensive lysis of adhesions. The robot was undocked. All pneumoperitoneum and instruments were evacuated from the abdominal cavity. The incisions were reapproximated using 4-0 Monocryl in an interrupted subcuticu lar fashion. Please note along the trocar sites, local anesthetic was placed as a field block prior to insertion of all instruments. Liquid glue was applied to the skin. At the end of the procedure needle, sponge, and instrument count had been verified correct by the assistant professor surgical technology. The patient was transferred to postanesthesia care unit in stable condition. Intraoperative images including findings were described to the patients family. s Plan - Discharge Summary Discharge Rx Participant: Yes New Discharge Prescriptions: New Ibuprofen [Motrin] 600 mg PO Q8HR PRN #30 tab PRN Reason: Pain Acetaminophen Tab [Tylenol Tab] 1,000 mg PO Q6HR PRN #30 tablet PRN Reason: Pain Discharge Medication List Acetaminophen Tab [Tylenol Tab] 1,000 mg PO Q6HR PRN #30 tablet 07/17/22 [Rx] Ibuprofen [Motrin] 600 mg PO Q8HR PRN #30 tab 07/17/22 [Rx] Follow up Appointment(s)/Referral(s): Jyoti Daniels MD [STAFF PHYSICIAN] - 07/22/22 8:00 am Patient Instructions/Handouts: *[facility] - Anesthesia Discharge Instructions, *[facility] - Managing Your Pain After Surgery Without Opioids, How to Use an Incentive Spirometer (DC), Lysis of Abdominal Adhesions (GEN) Activity/Diet/Wound Care/Special Instructions: No lifting over 10 pounds for 2 weeks. May shower. Take tylenol and ibuprofen scheduled for 3 days. Use ice along incisions for the next 2 days for pain management. Discharge Disposition: HOME SELF-CARE
--- NOTE | 2022-07-18 12:03 | P.ANPRN ---
Procedure Note - Anesthesia - Nerve Block Performed Bilateral Erector Spinae Single Time Out Performed: Yes Date of Procedure: 07/17/22 Procedure Start Time: :12 Procedure Stop Time: : Indication: Acute Post-Operative Pain, Requested by Surgeon Sedation Type: Sedate with meaningful contact maintained Preparation: Sterile Prep Position: Prone Needle Types: Pajunk Needle Gauge: 21 Ultrasound used to visualize needle placement: Yes Ultrasound used to observe medication spread: Yes Blood Aspirated: No Pain Paresthesia on Injection Noted: No Resistance on Injection: Normal Image Stored and Saved: Yes Events: Uneventful and Well Tolerated (Ropivacaine 0.5% 15 mL plus dexamethasone 4 mg plus normal saline and cc given bilaterally at L1)
== END 2022-07-17 15:22 | disposition home or self-care (01) ==
LOC: OR 07:56
PROVIDERS: ATTEND Surgery Plastic and Reconstructive Surgery
DX: K66.0 Peritoneal adhesions (postprocedural) (postinfection) (principal); G89.18 Other acute postprocedural pain; R94.31 Abnormal electrocardiogram [ECG] [EKG]; Z93.3 Colostomy status; Z86.711 Personal history of pulmonary embolism; Z90.49 Acquired absence of other specified parts of digestive tract; Z98.84 Bariatric surgery status; Z98.890 Other specified postprocedural states
CPT/HCPCS: 49650; S2900; 64999; 76942; 80053; 85025

== ENCOUNTER 2022-07-23 16:40 | Emergency (ER) | payer BC ==
[2022-07-23 16:57] VITALS: BP 129/87; PULSE 88; RESP 20; TEMP 97.7
--- NOTE | 2022-07-23 17:03 | ED ---
Extremity Problem HPI - General Chief complaint: Extremity Problem,Nontraumatic Stated complaint: possible DVT Time Seen by Provider: 07/23/22 16:57 Source: patient Mode of arrival: ambulatory Limitations: no limitations - History of Present Illness Initial comments: Patient is a 52-year-old male presenting with chief complaint of calf pain. Patient is concerned for DVT. Patient has history of DVT. He is status post lysis of abdominal adhesions surgery that placed on 07/17. Currently not on any blood thinners. Mild amount of swelling to the left lower extremity. No chest pain, difficulty breathing, palpitations, weakness, numbness, tingling. - Related Data Previous Rx's Medication Instructions Recorded Acetaminophen Tab [Tylenol Tab] 1,000 mg PO Q6HR PRN #30 tablet 07/17/22 Ibuprofen [Motrin] 600 mg PO Q8HR PRN #30 tab 07/17/22 Allergies Allergy/AdvReac Type Severity Reaction Status Date / Time No Known Allergies Allergy Verified 07/23/22 16:57 Review of Systems ROS Statement: Those systems with pertinent positive or pertinent negative responses have been documented in the HPI. ROS Other: All systems not noted in ROS Statement are negative. Past Medical History Past Medical History: Blood Disorder, Deep Vein Thrombosis (DVT), GI Bleed, Pulmonary Embolus (PE) Additional Past Medical History / Comment(s): left inguinal hernis, Hx. perforated diverticuli with bowel resection/colostomy and colostomy reversal, Hereditary Spherocytosis(Blood Disorder)-HAD SPLEEN REMOVED TO RESOLVE ISSUE, Pulmonary Embolism after Colostomy Reversal 2015. History of Any Multi-Drug Resistant Organisms: None Reported Past Surgical History: Appendectomy, Back Surgery, Bowel Resection, Cholecystectomy, Hernia Repair, Orthopedic Surgery Additional Past Surgical History / Comment(s): laproscopic lysis of adhesions 05/17/20, Colonoscopies, bowel resection and colostomy due to ruptured diverticuli, 06/25/15, open colostomy reversal, splenectomy, lumbar laminectomy/discectomy L5-S1, right rotator cuff, left knee arthroscopy. Past Anesthesia/Blood Transfusion Reactions: No Reported Reaction Additional Past Anesthesia/Blood Transfusion Reaction / Comment(s): Pt has received blood without reaction. Past Psychological History: No Psychological Hx Reported Smoking Status: Never smoker Past Alcohol Use History: None Reported Past Drug Use History: None Reported - Past Family History Father Family Medical History: Blood Disorder Additional Family Medical History / Comment(s): Father had Spherocytosis. He had leg ulcers and at age 44 yrs. Mother Additional Family Medical History / Comment(s): Mother has colitis. She is living. Sister(s) Family Medical History: Blood Disorder, Deep Vein Thrombosis (DVT) Additional Family Medical History / Comment(s): Sister had blood clot after surgery and was found to have elevated Factor 8. General Exam Limitations: no limitations General appearance: alert, in no apparent distress Head exam: Present: atraumatic, normocephalic, normal inspection Eye exam: Present: normal appearance, EOMI. Absent: scleral icterus, periorbital swelling Neck exam: Present: normal inspection, full ROM Respiratory exam: Present: normal lung sounds bilaterally. Absent: respiratory distress, wheezes, rales, rhonchi, stridor Cardiovascular Exam: Present: regular rate, normal rhythm, normal heart sounds. Absent: systolic murmur, diastolic murmur, rubs, gallop, clicks Extremities exam: Present: tenderness, normal capillary refill. Absent: pedal edema Neurological exam: Present: alert, oriented X3, CN II-XII intact Psychiatric exam: Present: normal affect, normal mood Skin exam: Present: warm, dry, intact, normal color. Absent: rash Course Vital Signs 07/23/22 16:53 Temperature 97.7 F Pulse Rate 88 Respiratory 20 Rate Blood Pressure 129/87 O2 Sat by Pulse 99 Oximetry Medical Decision Making - Medical Decision Making Was pt. sent in by a medical professional or institution (, PA, INDEPENDENT DRIVER, urgent care, hospital, or usp...) When possible be specific @ -No Did you speak to anyone other than the patient for history (EMS, parent, family, police, friend...)? What history was obtained from this source @ -No Did you review nursing and triage notes (agree or disagree)? Why? @ -I reviewed and agree with nursing and triage notes Were old charts reviewed (outside hosp., previous admission, EMS record, old EKG, old radiological studies, urgent care reports/EKG's, usp records)? Report findings @ -No old charts were reviewed Differential Diagnosis (chest pain, altered mental status, abdominal pain women, abdominal pain men, vaginal bleeding, weakness, fever, dyspnea, syncope, headache, dizziness, GI bleed, back pain, seizure, CVA, palpatations, mental health, musculoskeletal)? @ -Differential Musculoskeletal Muscular strain, contusion, ligament sprain, fracture, arthritis, septic arthritis, bursitis, cellulitis, muscle spasm, nerve compression, DVT, arterial occlusion, herpes zoster, electrolyte abnormality, tumor.... This is not meant to be in all inclusive list EKG interpreted by me (3pts min.). @ -As above X-rays interpreted by me (1pt min.). @ -None done CT interpreted by me (1pt min.). @ -None done U/S interpreted by me (1pt. min.). @ -Ultrasound is negative for DVT What testing was considered but not performed or refused? (CT, X-rays, U/S, labs)? Why? @ -None What meds were considered but not given or refused? Why? @ -None Did you discuss the management of the patient with other professionals (professionals i.e. , PA, INDEPENDENT DRIVER, lab, RT, psych nurse, social media editor, billing and quality technician, teacher, information assurance officer, director case management)? Give summary @ -No Was smoking cessation discussed for >3mins.? @ -No Was critical care preformed (if so, how long)? @ -No Were there social determinants of health that impacted care today? How? (Homelessness, low income, unemployed, alcoholism, drug addiction, transportation, low edu. Level, literacy, decrease access to med. care, group home, rehab)? @ -No Was there de-escalation of care discussed even if they declined (Discuss DNR or withdrawal of care, Hospice)? DNR status @ -No What co-morbidities impacted this encounter? (DM, HTN, Smoking, COPD, CAD, Cancer, CVA, ARF, Chemo, Hep., AIDS, mental health diagnosis, sleep apnea, morbid obesity)? @ -None Was patient admitted / discharged? Hospital course, mention meds given and route, prescriptions, significant lab abnormalities, going to OR and other pertinent info. @ -Patient is a 52-year-old male presenting with chief complaint of left calf pain that started yesterday. He had abdominal surgery on 07/17. He is concerned for DVT. On physical examination he is neurovascularly intact. Mild calf tenderness with palpation. Ultrasound is negative for DVT. Patient is educated on these findings. Follow-up with PCP. Report back to ER with any new or worsening symptoms. Discussed return parameters and answered all questions. Patient conveyed verbal understanding and agreed to the plan. I discussed this case in detail with my attending Dr. Bagley Undiagnosed new problem with uncertain prognosis? @ -No Drug Therapy requiring intensive monitoring for toxicity (Heparin, Nitro, Insulin, Cardizem)? @ -No Were any procedures done? @ -No Diagnosis/symptom? @ -calf pain Acute, or Chronic, or Acute on Chronic? @ -acute Uncomplicated (without systemic symptoms) or Complicated (systemic symptoms)? @ -Uncomplicated Side effects of treatment? @ -No Exacerbation, Progression, or Severe Exacerbation? @ -No Poses a threat to life or bodily function? How? (Chest pain, [place], [place], pneumonia, PE, COPD, DKA, ARF, appy, cholecystitis, CVA, Diverticulitis, Homicidal, Suicidal, threat to staff... and all critical care pts) @ -No Disposition Clinical Impression: Calf pain Disposition: HOME SELF-CARE Condition: Good Instructions (If sedation given, give patient instructions): Leg Pain (ED) Additional Instructions: Follow-up with PCP. Report back to ER with any new or worsening symptoms. Take Motrin and Tylenol as needed for pain control. Is patient prescribed a controlled substance at d/c from ED?: No Referrals: Dc Wall DO [Primary Care Provider] - 1-2 days Time of Disposition: 17:43
--- NOTE | 2022-07-23 17:36 | US ---
EXAMINATION TYPE: US venous doppler duplex LE LT DATE OF EXAM: 07/23/2022 5:02 PM COMPARISON: 04/17/21 CLINICAL INDICATION: Male, 52 years old with history of calf pain, recent surgery; Left calf pain tod ay. Hx of PE in 2016. Not on blood thinners now. Surgery last week SIDE PERFORMED: Left TECHNIQUE: The lower extremity deep venous system is examined utilizing real time linear array sonog elissa with graded compression, doppler sonography and color-flow sonography. VESSELS IMAGED: Common Femoral Vein Deep Femoral Vein Greater Saphenous Vein * Femoral Vein Popliteal Vein Small Saphenous Vein * Proximal Calf Veins (* superficial vessels) Left Leg: Negative for DVT IMPRESSION: Grayscale, color doppler, spectral doppler imaging performed of the deep veins of the lo wer extremities. There is normal flow, compressibility, vascular waveforms.
== END 2022-07-23 17:48 | disposition home or self-care (01) ==
LOC: EC 16:40
DX: M79.662 Pain in left lower leg (principal); Z86.711 Personal history of pulmonary embolism
CPT/HCPCS: 99283

== ENCOUNTER 2023-11-13 14:15 | Emergency (ER) | payer BC ==
--- NOTE | 2023-12-08 15:02 | US ---
EXAMINATION TYPE: US venous doppler duplex LE RT DATE OF EXAM: 12/08/2023 2:27 PM COMPARISON: NONE CLINICAL INDICATION: Male, 53 years old with history of PE, redness, swelling; SIDE PERFORMED: Bilateral TECHNIQUE: The lower extremity deep venous system is examined utilizing real time linear array sonog elissa with graded compression, doppler sonography and color-flow sonography. VESSELS IMAGED: Common Femoral Vein Deep Femoral Vein Greater Saphenous Vein * Femoral Vein Popliteal Vein Small Saphenous Vein * Proximal Calf Veins (* superficial vessels) Right Leg: Negative for DVT IMPRESSION: Grayscale, color doppler, spectral doppler imaging performed of the deep veins of the lo wer extremities. There is normal flow, compressibility, vascular waveforms.
== END 2023-11-13 18:15 | disposition home or self-care (01) ==
LOC: EC 14:15
DX: R22.41 Localized swelling, mass and lump, right lower limb (principal)
CPT/HCPCS: 99284

== ENCOUNTER 2024-01-24 15:46 | Emergency (ER) | payer BC ==
[2024-01-24 15:51] VITALS: RESP 18; TEMP 98.2
[2024-01-24] MEDS: SODIUM CHLORIDE 0.9% 1,000 ML IV STA (16:31)
--- NOTE | 2024-01-24 16:56 | ED ---
General Adult HPI - General Chief complaint: Abdominal Pain Stated complaint: Abdominal Pain Time Seen by Provider: 01/24/24 16:11 Source: patient Mode of arrival: ambulatory Limitations: no limitations - History of Present Illness Initial comments: Dictation was produced using [employer] dictation software. please excuse any grammatical, word or spelling errors. Chief Complaint: 53-year-old male with extensive abdominal surgical history presents with left lower quadrant abdominal pain History of Present Illness: Patient is a 53-year-old male presents to the emergency department with left lower quadrant abdominal pain. Patient has extensive surgical history including New's pouch, ostomy with reversal and also hernia repairs. Patient's primary surgeon is Dr. Daniels. For the last couple days she has been having worsening left lower quadrant abdominal pain. He was told that he has significant adhesions. Patient states that he has been having symptoms of nausea. Denies any fever, chills or night sweats. The ROS documented in this emergency department record has been reviewed and confirmed by me. Those systems with pertinent positive or negative responses have been documented in the HPI. All other systems are other negative and/or noncontributory. - Related Data Previous Rx's Medication Instructions Recorded Acetaminophen Tab [Tylenol Tab] 1,000 mg PO Q6HR PRN #30 tablet 07/17/22 Ibuprofen [Motrin] 600 mg PO Q8HR PRN #30 tab 07/17/22 Allergies Allergy/AdvReac Type Severity Reaction Status Date / Time No Known Allergies Allergy Verified 01/24/24 15:50 Review of Systems ROS Statement: Those systems with pertinent positive or pertinent negative responses have been documented in the HPI. ROS Other: All systems not noted in ROS Statement are negative. Past Medical History Past Medical History: Blood Disorder, Deep Vein Thrombosis (DVT), GI Bleed, Pulmonary Embolus (PE) Additional Past Medical History / Comment(s): left inguinal hernis, Hx. perforated diverticuli with bowel resection/colostomy and colostomy reversal, Hereditary Spherocytosis(Blood Disorder)-HAD SPLEEN REMOVED TO RESOLVE ISSUE, Pulmonary Embolism after Colostomy Reversal 2015. History of Any Multi-Drug Resistant Organisms: None Reported Past Surgical History: Appendectomy, Back Surgery, Bowel Resection, Cholecystectomy, Hernia Repair, Orthopedic Surgery Additional Past Surgical History / Comment(s): laproscopic lysis of adhesions 05/17/20, Colonoscopies, bowel resection and colostomy due to ruptured diverticuli, 06/25/15, open colostomy reversal, splenectomy, lumbar laminectomy/discectomy L5-S1, right rotator cuff, left knee arthroscopy. Past Anesthesia/Blood Transfusion Reactions: No Reported Reaction Additional Past Anesthesia/Blood Transfusion Reaction / Comment(s): Pt has received blood without reaction. Past Psychological History: No Psychological Hx Reported Smoking Status: Never smoker Past Alcohol Use History: Occasional Past Drug Use History: None Reported - Past Family History Father Family Medical History: Blood Disorder Additional Family Medical History / Comment(s): Father had Spherocytosis. He had leg ulcers and at age 44 yrs. Mother Additional Family Medical History / Comment(s): Mother has colitis. She is living. Sister(s) Family Medical History: Blood Disorder, Deep Vein Thrombosis (DVT) Additional Family Medical History / Comment(s): Sister had blood clot after surgery and was found to have elevated Factor 8. General Exam - General Exam Comments Initial Comments: PHYSICAL EXAM: General Impression: Alert and oriented x3, not in acute distress HEENT: Normocephalic atraumatic, extra-ocular movements intact, pupils equal and reactive to light bilaterally, mucous membranes moist. Cardiovascular: Heart regular rate and rhythm Chest: Able to complete full sentences, no retractions, no tachypnea Abdomen: abdomen soft, left lower quadrant palpatory tenderness, non-distended, no organomegaly Musculoskeletal: Pulses present and equal in all extremities, no peripheral edema Motor: no focal deficits noted Neurological: CN II-XII grossly intact, no focal motor or sensory deficits noted Skin: Intact with no visualized rashes Psych: Normal affect and mood Limitations: no limitations Course Vital Signs 01/24/24 01/24/24 15:47 17:51 Temperature 98.2 F Pulse Rate 82 81 Respiratory 18 18 Rate Blood Pressure 131/78 117/74 O2 Sat by Pulse 96 98 Oximetry Medical Decision Making - Medical Decision Making Was pt. sent in by a medical professional or institution (ZAINA Baugh, INDUSTRIAL AERIAL INSTALLER, urgent care, hospital, or custodial...) When possible be specific @ -No Did you speak to anyone other than the patient for history (EMS, parent, family, police, friend...)? What history was obtained from this source @ -No Did you review nursing and triage notes (agree or disagree)? Why? @ -I reviewed and agree with nursing and triage notes Were old charts reviewed (outside hosp., previous admission, EMS record, old EKG, old radiological studies, urgent care reports/EKG's, custodial records)? Report findings @ -No old charts were reviewed Differential Diagnosis (chest pain, altered mental status, abdominal pain women, abdominal pain men, vaginal bleeding, musculoskeletal, weakness, fever, dyspnea, syncope, headache, dizziness, GI bleed, back pain, seizure, CVA, palpatations, mental health)? @ -Differential Abdominal Pain Men: Appendicitis, cholecystitis, diverticulosis, ischemic bowel, pancreatitis, hepatitis, UTI, gastroenteritis, AAA, incarcerated hernia, bowel obstruction, constipation, inflammatory bowel, hepatitis, peptic ulcer disease, splenic infarction, perforated viscus, testicular torsion, this is not meant to be an all-inclusive list EKG interpreted by me (3pts min.). @ -None done X-rays interpreted by me (1pt min.). @ -None done CT interpreted by me (1pt min.). @ -CT shows enteritis. Excellent U/S interpreted by me (1pt. min.). @ -None done What testing was considered but not performed or refused? (CT, X-rays, U/S, labs)? Why? @ -None What meds were considered but not given or refused? Why? @ -None Was smoking cessation discussed for >3mins.? @ -No Were there social determinants of health that impacted care today? How? (Homelessness, low income, unemployed, alcoholism, drug addiction, transportation, low edu. Level, literacy, decrease access to med. care, usp, rehab)? @ -No Was there de-escalation of care discussed even if they declined (Discuss DNR or withdrawal of care, Hospice)? DNR status @ -No What co-morbidities impacted this encounter? (DM, HTN, Smoking, COPD, CAD, Cancer, CVA, ARF, Chemo, Hep., AIDS, mental health diagnosis, sleep apnea, morbid obesity)? @ -Abdominal surgical history Was patient admitted / discharged? Hospital course, mention meds given and route, prescriptions, significant lab abnormalities, going to OR and other pertinent info. @ -53-year-old male with extensive abdominal surgical history presents to the emergency department left lower quadrant abdominal pain. Vital signs stable. Patient well-appearing at the bedside in no acute distress offered pain medication however refused. Laboratory evaluation is unremarkable. CT scan shows no acute intra-abdominal processes except for some mild enteritis. Patient reevaluated bedside at 6:13 PM found to be stable to condition. Patient discharged advised follow-up with primary care doctor. Did you discuss the management of the patient with other professionals (professionals i.e. , PA, INDUSTRIAL AERIAL INSTALLER, lab, RT, psych nurse, social security specialist, bulb farmworker, teacher, community cultural development officer, watch caser)? Give summary @ -No Was critical care preformed (if so, how long)? @ -No Undiagnosed new problem with uncertain prognosis? @ -No Drug Therapy requiring intensive monitoring for toxicity (Heparin, Nitro, Insulin, Cardizem)? @ -No Were any procedures done? @ -No Diagnosis/symptom? Acute, or Chronic, or Acute on Chronic? Uncomplicated (without systemic symptoms) or Complicated (systemic symptoms)? @ -Enteritis Side effects of treatment? @ -No Exacerbation, Progression, or Severe Exacerbation? @ -No Poses a threat to life or bodily function? How? (Chest pain, [place], [place], pneumonia, PE, COPD, DKA, ARF, appy, cholecystitis, CVA, Diverticulitis, Homicidal, Suicidal, threat to staff... and all critical care pts) @ -No - Lab Data Result diagrams: 01/24/24 16:30 01/24/24 16:30 Lab Results 01/24/24 01/24/24 01/24/24 Range/Units 16:30 16:30 16:30 WBC 8.3 (3.8-10.6) k/uL RBC 5.00 (4.30-5.90) m/uL Hgb 15.4 (13.0-17.5) gm/dL Hct 43.4 (39.0-53.0) % MCV 86.8 (80.0-100.0) fL MCH 30.9 (25.0-35.0) pg MCHC 35.5 (31.0-37.0) g/dL RDW 13.1 (11.5-15.5) % Plt Count 380 (150-450) k/uL MPV 7.1 Neutrophils % 55 % Lymphocytes % 28 % Monocytes % 9 % Eosinophils % 4 % Basophils % 2 % Neutrophils # 4.6 (1.3-7.7) k/uL Lymphocytes # 2.3 (1.0-4.8) k/uL Monocytes # 0.8 (0-1.0) k/uL Eosinophils # 0.4 (0-0.7) k/uL Basophils # 0.1 (0-0.2) k/uL Hyperchromasia Slight Sodium 139 (137-145) mmol/L Potassium 4.0 (3.5-5.1) mmol/L Chloride 108 H (98-107) mmol/L Carbon Dioxide 25 (22-30) mmol/L Anion Gap 6 mmol/L BUN 17 (9-20) mg/dL Creatinine 0.76 (0.66-1.25) mg/dL Est GFR (CKD-EPI)AfAm >90 (>60 ml/min/1.73 sqM) Est GFR (CKD-EPI)NonAf >90 (>60 ml/min/1.73 sqM) Glucose 100 H (74-99) mg/dL Plasma Lactic Acid Matt 1.8 (0.7-2.0) mmol/L Calcium 8.9 (8.4-10.2) mg/dL Total Bilirubin 2.0 H (0.2-1.3) mg/dL AST 34 (17-59) U/L ALT 29 (4-49) U/L Alkaline Phosphatase 76 (38-126) U/L Total Protein 7.2 (6.3-8.2) g/dL Albumin 4.3 (3.5-5.0) g/dL Disposition Clinical Impression: Enteritis Disposition: HOME SELF-CARE Condition: Fair Instructions (If sedation given, give patient instructions): Enteritis (ED) Is patient prescribed a controlled substance at d/c from ED?: No Referrals: Dc Wall DO [Primary Care Provider] - 1-2 days Time of Disposition: 17:30
[2024-01-24 17:00] LABS: ALT 29 U/L (4-49); AST 34 U/L (17-59); African American GFR (CKD) >90 (>60 ml/min/1.73 sqM); Albumin 4.3 g/dL (3.5-5.0); Alkaline Phosphatase 76 U/L (38-126); Anion Gap 6 mmol/L; Blood Urea Nitrogen 17 mg/dL (9-20); Calcium 8.9 mg/dL (8.4-10.2); Carbon Dioxide 25 mmol/L (22-30); Chloride 108 mmol/L (98-107); Glucose 100 mg/dL (74-99); Non-African American GFR(CKD) >90 (>60 ml/min/1.73 sqM); Sodium 139 mmol/L (137-145); Total Protein 7.2 g/dL (6.3-8.2)
[2024-01-24 17:16] LABS: Basophils # (A) 0.1 k/uL (0-0.2); Basophils % (A) 2 %; Eosinophils # (A) 0.4 k/uL (0-0.7); Eosinophils % (A) 4 %; HCT 43.4 % (39.0-53.0); HGB 15.4 gm/dL (13.0-17.5); Hyperchromasia Slight; Lymphocytes # (A) 2.3 k/uL (1.0-4.8); Lymphocytes % (A) 28 %; MCH 30.9 pg (25.0-35.0); MCHC 35.5 g/dL (31.0-37.0); MCV 86.8 fL (80.0-100.0); Mean Platelet Volume 7.1; Monocytes # (A) 0.8 k/uL (0-1.0); Monocytes % (A) 9 %; Neutrophils # (A) 4.6 k/uL (1.3-7.7); Neutrophils % (A) 55 %; Platelet Count 380 k/uL (150-450); RDW 13.1 % (11.5-15.5); WBC 8.3 k/uL (3.8-10.6)
--- NOTE | 2024-01-24 17:49 | CT ---
EXAMINATION TYPE: CT abdomen pelvis w con DATE OF EXAM: 01/24/2024 5:18 PM COMPARISON: 03/20/2022 CLINICAL INDICATION: Male, 53 years old with history of abdominal pain; abdominal pain TECHNIQUE: Axial CT abdomen pelvis w con;Sagittal and coronal reformats were created on a separate w orkstation. Contrast used:100 ml mL of Isovue 370 with IV Contrast, (none if empty) Oral contrast used: without Oral Contrast (none if empty) CT DLP: 1259.9 mGycm, Automated exposure control for dose reduction was used. FINDINGS: LOWER CHEST: Unremarkable ABDOMEN LIVER: Unremarkable GALLBLADDER AND BILE DUCTS: The gallbladder is surgically absent. PANCREAS: Unremarkable. SPLEEN: Unremarkable. ADRENAL GLANDS: Unremarkable. KIDNEYS AND URETERS: No evidence of hydronephrosis or renal calculus. The ureters are unremarkable. PELVIS BLADDER: No evidence for wall thickening or mass given limitations of exam. REPRODUCTIVE: Unremarkable. ABDOMEN & PELVIS STOMACH AND BOWEL: . Scattered diverticula are noted throughout the colon. Postsurgical changes to th e sigmoid colon. The appendix is normal. No evidence of bowel obstruction. PERITONEUM/RETROPERITONEUM: No evidence of pneumoperitoneum or free fluid. Nonspecific ST mesentery. VASCULATURE: No evidence of aortic aneurysm. MUSCULOSKELETAL: No acute osseous abnormalities. Mild disc degeneration changes are present throughou t the thoracolumbar spine. LYMPH NODES: No gross evidence for lymphadenopathy. SOFT TISSUE/ABDOMINAL WALL: Postsurgical changes anterior abdominal wall with suspected hernia mesh p resent. IMPRESSION: 1. 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 Otherwise no acute abdom inal process. 2. Colonic diverticulosis. 3. Post surgical changes sigmoid colon. 4. Anterior abdominal wall hernia mesh appears in satisfactory place. [facility] [place], , 01/24/2024 5:47 PM
[2024-01-24 17:52] VITALS: BP 117/74; PULSE 81
== END 2024-01-24 18:28 | disposition home or self-care (01) ==
LOC: EC 15:46
CPT/HCPCS: 36415; 74177; 80053; 83605; 85025; 96360; 99284

== ENCOUNTER 2024-03-29 11:38 | Day surgery (SDC) | payer BC ==
[2024-03-28 08:55] VITALS: BMI 26.4
[~2024-03-29 11:38] MED LIST changes: -DEXAMETHASONE SOD PHOSPHATE 4 MG/ML 1 ML VIAL IV ONE; -HEPARIN SODIUM,PORCINE/PF 5,000 UNIT/0.5 ML SYRINGE SQ PRN; -HYDROmorphone 0.5 MG/0.5 ML SYRINGE IVP PRN; +LIDOCAINE 1% (10MG/ML) FOR IV START INTRADERMA PRN; -ONDANSETRON 4 MG/2 ML VIAL IVP ONE; -Pre Op ABX Message 1 EACH MISC MISCELLANE ONE
[2024-03-29 12:19] VITALS: TEMP 97.1
[2024-03-29] MEDS: IV FLUID CONTINUATION 1,000 ML IV ONE (12:22)
[2024-03-29] MEDS ORDERED: PROPOFOL 10 MG/ML 20 ML VIAL IV ONE (12:50)
--- NOTE | 2024-03-29 13:13 | P.PCN ---
Date of Procedure: 03/29/24 Procedure(s) Performed: BRIEF HISTORY: Patient is a 54-year-old pleasant white male scheduled for an elective colonoscopy as a part of screening for colon cancer. He had prior history of sigmoid colectomy in 2016 for complicated diverticulosis. PROCEDURE PERFORMED: Colonoscopy. PREOPERATIVE DIAGNOSIS: Screening for colon cancer. IV sedation per Anesthesia. PROCEDURE: After informed consent was obtained, the patient, was brought into the endoscopy unit. IV sedation was administered by Anesthesia under continuous monitoring. Digital rectal examination was normal. Initially the Olympus CF-160 flexible video colonoscope was then inserted in the rectum, gradually advanced into the cecum without any difficulty. Careful examination was performed as the scope was gradually being withdrawn. Ileocecal valve and the appendiceal orifice were visualized and appeared normal. Prep was fair. Mucosa of the cecum, ascending colon, transverse colon, descending colon, appeared normal. There was evidence of sigmoid colectomy with anastomosis located 20 cm from anal verge that appeared normal. There was scattered left-sided diverticulosis seen. The rectum appeared normal. Retroflexion was performed in the rectum and no lesions were seen. The patient tolerated the procedure well. IMPRESSION: Normal-appearing colon from rectum to cecum no evidence of colitis or colorectal neoplasia. Scattered left-sided diverticulosis. Normal anastomosis at 20 cm from the anal verge RECOMMENDATIONS: Findings of this examination were discussed with the patient as well as his family. He was advised to be on high-fiber diet and take fiber supplements on a regular basis. Recommended repeat colonoscopy in 10 years..
[2024-03-29 13:34] VITALS: BP 114/74; PULSE 81; RESP 18
== END 2024-03-29 13:51 | disposition home or self-care (01) ==
LOC: ORWHC2ENDO 11:38
PROVIDERS: ATTEND Internal Medicine Gastroenterology
DX: Z12.11 Encounter for screening for malignant neoplasm of colon (principal); K57.30 Diverticulosis of large intestine without perforation or abscess without bleeding; D58.0 Hereditary spherocytosis; Z87.19 Personal history of other diseases of the digestive system; Z90.49 Acquired absence of other specified parts of digestive tract; Z86.711 Personal history of pulmonary embolism
CPT/HCPCS: J2704; G0121

== ENCOUNTER 2024-05-30 13:01 | Emergency (ER) | payer BC ==
[2024-05-30 13:10] VITALS: RESP 20; TEMP 97.9
--- NOTE | 2024-05-30 13:54 | ED ---
General Adult HPI - General Chief complaint: Dizziness Stated complaint: dizziness Time Seen by Provider: 05/30/24 13:10 Source: patient, RN notes reviewed, old records reviewed Mode of arrival: ambulatory Limitations: no limitations - History of Present Illness Initial comments: 54-year-old male who presents to the emergency department complaining of d ashleyzimasood. Patient states he has been sick over the last 2 weeks. Patient about a week and a half ago he had a fever but that has been gone since then. Patient states back then he had a cough but that is subsided. Patient states now he just does not feel right he feels his heart is racing and that he is slightly dizzy. Patient also states this morning woke up with quite a significant headache which she normally does not. Patient denies numbness or weakness. Patient states he felt more like he was going to fall over then passed out. Patient denies any chest pain or shortness of breath or difficulty breathing. Patient denies any abdominal pain patient denies nausea vomiting diarrhea - Related Data Previous Rx's Medication Instructions Recorded Acetaminophen Tab [Tylenol Tab] 1,000 mg PO Q6HR PRN #30 tablet 07/17/22 Ibuprofen [Motrin] 600 mg PO Q8HR PRN #30 tab 07/17/22 Meclizine [Antivert] 25 mg PO TID #20 tab 05/30/24 Allergies Allergy/AdvReac Type Severity Reaction Status Date / Time No Known Allergies Allergy Verified 05/30/24 13:10 Review of Systems ROS Statement: Those systems with pertinent positive or pertinent negative responses have been documented in the HPI. ROS Other: All systems not noted in ROS Statement are negative. Past Medical History Past Medical History: Blood Disorder, GI Bleed, Pulmonary Embolus (PE) Additional Past Medical History / Comment(s): left inguinal hernis, Hx. perforated diverticuli with bowel resection/colostomy and colostomy reversal, Hereditary Spherocytosis(Blood Disorder)-HAD SPLEEN REMOVED TO RESOLVE ISSUE, Pulmonary Embolism after Colostomy Reversal 2015. History of Any Multi-Drug Resistant Organisms: None Reported Past Surgical History: Appendectomy, Back Surgery, Bowel Resection, Cholecystectomy, Hernia Repair, Orthopedic Surgery Additional Past Surgical History / Comment(s): laproscopic lysis of adhesions 05/17/20, Colonoscopies, bowel resection and colostomy due to ruptured diverticuli, 06/25/15, open colostomy reversal, splenectomy, lumbar laminectomy/discectomy L5-S1, right rotator cuff, left knee arthroscopy. Past Anesthesia/Blood Transfusion Reactions: No Reported Reaction Additional Past Anesthesia/Blood Transfusion Reaction / Comment(s): Pt has received blood without reaction. Past Psychological History: No Psychological Hx Reported Smoking Status: Never smoker Past Alcohol Use History: None Reported Past Drug Use History: None Reported - Past Family History Father Family Medical History: Blood Disorder Additional Family Medical History / Comment(s): Father had Spherocytosis. He had leg ulcers and at age 44 yrs. Mother Additional Family Medical History / Comment(s): Mother has colitis. She is living. Sister(s) Family Medical History: Blood Disorder, Deep Vein Thrombosis (DVT) Additional Family Medical History / Comment(s): Sister had blood clot after surgery and was found to have elevated Factor 8. General Exam - General Exam Comments Initial Comments: GENERAL: Patient is well-developed and well-nourished. Patient is nontoxic and well- hydrated and is in mild distress. ENT: Neck is soft and supple. No significant lymphadenopathy is noted. Oropharynx is clear. Moist mucous membranes. Neck has full range of motion without eliciting any pain. EYES: The sclera were anicteric and conjunctiva were pink and moist. Extraocular movements were intact and pupils were equal round and reactive to light. Eyelids were unremarkable. PULMONARY: Unlabored respirations. Good breath sounds bilaterally. No audible rales rhonchi or wheezing was noted. CARDIOVASCULAR: There is a regular rate and rhythm without any murmurs gallops or rubs. ABDOMEN: Soft and nontender with normal bowel sounds. SKIN: Skin is clear with no lesions or rashes and otherwise unremarkable. NEUROLOGIC: Patient is alert and oriented x3. Cranial nerves II through XII are grossly intact. Motor and sensory are also intact. Normal speech, volume and content. Symmetrical smile. Finger-nose testing is good bilaterally MUSCULOSKELETAL: Normal extremities with adequate strength and full range of motion. No lower extremity swelling or edema. No calf tenderness. LYMPHATICS: No significant lymphadenopathy is noted PSYCHIATRIC: Normal psychiatric evaluation. Limitations: no limitations Course Vital Signs 05/30/24 13:08 Temperature 97.9 F Pulse Rate 108 H Respiratory 20 Rate Blood Pressure 105/71 O2 Sat by Pulse 96 Oximetry Medical Decision Making - Medical Decision Making EKG is interpreted by myself EKG shows sinus tachycardia at 106 bpm [place] was 146 QRS is 85 QT interval 337 QTc is 399. Patient's EKG shows no ST segment elevation or depression. Was pt. sent in by a medical professional or institution (ZAINA Baugh, CREDIT REFERENCE CLERK, urgent care, hospital, or retirement...) When possible be specific @ -No Did you speak to anyone other than the patient for history (EMS, parent, family, police, friend...)? What history was obtained from this source @ -No Did you review nursing and triage notes (agree or disagree)? Why? @ -I reviewed and agree with nursing and triage notes Were old charts reviewed (outside hosp., previous admission, EMS record, old EKG, old radiological studies, urgent care reports/EKG's, retirement records)? Report findings @ -No old charts were reviewed Differential Diagnosis? @ -Differential Dizziness: Benign paroxysmal positional Vertigo, Meniere's disease, otitis media, acoustic neuroma, vertebrobasilar insufficiency, cerebellar stroke, encephalitis, hypovolemic, arrhythmia, coronary artery syndrome, anemia, this is not meant to be an all-inclusive list EKG interpreted by me (3pts min.). @ -As above X-rays interpreted by me (1pt min.). @ -Chest x-ray shows no acute abnormality CT interpreted by me (1pt min.). @ -CT of the brain and CT angiogram showed no acute abnormality U/S interpreted by me (1pt. min.). @ -None done What testing was considered but not performed or refused? (CT, X-rays, U/S, labs)? Why? @ -None What meds were considered but not given or refused? Why? @ -None Did you discuss the management of the patient with other professionals (professionals i.e. ZAINA Baugh, CREDIT REFERENCE CLERK, lab, RT, psych nurse, social media campaign manager, administrative clerk, teacher, quarantine officer, welfare case worker)? Give summary @ -No Was smoking cessation discussed for >3mins.? @ -No Was critical care preformed (if so, how long)? @ -No Were there social determinants of health that impacted care today? How? (Homelessness, low income, unemployed, alcoholism, drug addiction, transportation, low edu. Level, literacy, decrease access to med. care, retirement, rehab)? @ -No Was there de-escalation of care discussed even if they declined (Discuss DNR or withdrawal of care, Hospice)? DNR status @ -No What co-morbidities impacted this encounter? (DM, HTN, Smoking, COPD, CAD, Cancer, CVA, ARF, Chemo, Hep., AIDS, mental health diagnosis, sleep apnea, morbid obesity)? @ -None Was patient admitted / discharged? Hospital course, mention meds given and route, prescriptions, significant lab abnormalities, going to OR and other pertinent info. @ -Patient unfortunately remained in the emergency waiting room the whole duration of his stay. Patient CAT scan showed no acute normality labs looked normal except for mildly elevated bilirubin. I went back and reevaluated the p atient once everything was back I believe the patient has vertigo I will be sending him home with Antivert. I did listen to his heart again his heart rate was 80 beats a minute at this time. Undiagnosed new problem with uncertain prognosis? @ -No Drug Therapy requiring intensive monitoring for toxicity (Heparin, Nitro, Insulin, Cardizem)? @ -No Were any procedures done? @ -No Diagnosis/symptom? @ -Vertigo Acute, or Chronic, or Acute on Chronic? @ -Acute Uncomplicated (without systemic symptoms) or Complicated (systemic symptoms)? @ -Complicated Side effects of treatment? @ -No Exacerbation, Progression, or Severe Exacerbation? @ -No Poses a threat to life or bodily function? How? (Chest pain, USA, GA, pneumonia, PE, COPD, DKA, ARF, appy, cholecystitis, CVA, Diverticulitis, Homicidal, Suic idal, threat to staff... and all critical care pts) @ -No - Lab Data Result diagrams: 05/30/24 13:45 05/30/24 13:45 Lab Results 05/30/24 05/30/24 05/30/24 Range/Units 13:45 13:45 13:45 WBC 9.9 (3.8-10.6) k/uL RBC 5.08 (4.30-5.90) m/uL Hgb 15.3 (13.0-17.5) gm/dL Hct 43.1 (39.0-53.0) % MCV 84.8 (80.0-100.0) fL MCH 30.2 (25.0-35.0) pg MCHC 35.6 (31.0-37.0) g/dL RDW 14.0 (11.5-15.5) % Plt Count 588 H (150-450) k/uL Manual Slide Review Performed APTT 22.3 (22.0-30.0) sec Sodium 141 (137-145) mmol/L Potassium 4.1 (3.5-5.1) mmol/L Chloride 106 (98-107) mmol/L Carbon Dioxide 24 (22-30) mmol/L Anion Gap 11 mmol/L BUN 23 H (9-20) mg/dL Creatinine 0.81 (0.66-1.25) mg/dL Est GFR (CKD-EPI)AfAm >90 (>60 ml/min/1.73 sqM) Est GFR (CKD-EPI)NonAf >90 (>60 ml/min/1.73 sqM) Glucose 90 (74-99) mg/dL Calcium 9.4 (8.4-10.2) mg/dL Total Bilirubin 2.0 H (0.2-1.3) mg/dL AST 33 (17-59) U/L ALT 23 (4-49) U/L Alkaline Phosphatase 58 (38-126) U/L Troponin I (0.000-0.034) ng/mL Total Protein 7.3 (6.3-8.2) g/dL Albumin 4.3 (3.5-5.0) g/dL TSH 1.290 (0.465-4.680) mIU/L 05/30/24 Range/Units 13:45 WBC (3.8-10.6) k/uL RBC (4.30-5.90) m/uL Hgb (13.0-17.5) gm/dL Hct (39.0-53.0) % MCV (80.0-100.0) fL MCH (25.0-35.0) pg MCHC (31.0-37.0) g/dL RDW (11.5-15.5) % Plt Count (150-450) k/uL Manual Slide Review APTT (22.0-30.0) sec Sodium (137-145) mmol/L Potassium (3.5-5.1) mmol/L Chloride (98-107) mmol/L Carbon Dioxide (22-30) mmol/L Anion Gap mmol/L BUN (9-20) mg/dL Creatinine (0.66-1.25) mg/dL Est GFR (CKD-EPI)AfAm (>60 ml/min/1.73 sqM) Est GFR (CKD-EPI)NonAf (>60 ml/min/1.73 sqM) Glucose (74-99) mg/dL Calcium (8.4-10.2) mg/dL Total Bilirubin (0.2-1.3) mg/dL AST (17-59) U/L ALT (4-49) U/L Alkaline Phosphatase (38-126) U/L Troponin I <0.012 (0.000-0.034) ng/mL Total Protein (6.3-8.2) g/dL Albumin (3.5-5.0) g/dL TSH (0.465-4.680) mIU/L Disposition Clinical Impression: Vertigo Disposition: HOME SELF-CARE Condition: Good Instructions (If sedation given, give patient instructions): Vertigo (ED) Prescriptions: Meclizine [Antivert] 25 mg PO TID #20 tab Is patient prescribed a controlled substance at d/c from ED?: No Referrals: Dc Wall DO [Primary Care Provider] - 1-2 days Time of Disposition: 15:58
[2024-05-30 14:16] LABS: ALT 23 U/L (4-49); African American GFR (CKD) >90 (>60 ml/min/1.73 sqM); Albumin 4.3 g/dL (3.5-5.0); Anion Gap 11 mmol/L; Blood Urea Nitrogen 23 mg/dL (9-20); Calcium 9.4 mg/dL (8.4-10.2); Carbon Dioxide 24 mmol/L (22-30); Chloride 106 mmol/L (98-107); Glucose 90 mg/dL (74-99); Non-African American GFR(CKD) >90 (>60 ml/min/1.73 sqM); Sodium 141 mmol/L (137-145); Total Protein 7.3 g/dL (6.3-8.2)
[2024-05-30 14:17] LABS: AST 33 U/L (17-59); Alkaline Phosphatase 58 U/L (38-126); Potassium 4.1 mmol/L (3.5-5.1)
--- NOTE | 2024-05-30 14:32 | XR ---
EXAMINATION TYPE: XR chest 2V DATE OF EXAM: 05/30/2024 2:20 PM COMPARISON: 02/12/2020 CLINICAL INDICATION: Male, 54 years old with history of DIZZY: Shortness of breath TECHNIQUE: XR chest 2V views of the chest are obtained. FINDINGS: Scattered senescent parenchymal changes noted. Hyperinflation compatible with COPD. No evidence for infiltrate. No evidence for atelectasis. Heart size is stable. Mediastinal structures are stable and grossly unremarkable. No evidence for hilar prominence. Degenerative changes dorsal spine. IMPRESSION: 1. No evidence for acute pulmonary disease. [facility], , 05/30/2024 2:29 PM
--- NOTE | 2024-05-30 15:01 | CT ---
EXAMINATION TYPE: CT brain wo con DATE OF EXAM: 05/30/2024 2:49 PM COMPARISON: None. CLINICAL INDICATION: Male, 54 years old with history of Dizziness, off-balance, Dizziness, Off balanc e. TECHNIQUE: Brain: Axial CT images of the brain were obtained with coronal and sagittal reformats created and rev iewed. Contrast used: None. Oral contrast used: None. CT DLP: 1085 mGycm, Automated exposure control for dose reduction was used. FINDINGS: Brain: Extra-axial spaces: No abnormal extra-axial fluid collections. Ventricular system: Within normal limits Cerebral parenchyma: No acute intraparenchymal hemorrhage or mass effect. The morris-white junction is well differentiated. Cerebellum: Unremarkable. Mass effect: No evidence of midline shift. Intracranial vasculature: unremarkable Soft tissues: Normal. Calvarium/osseous structures: No depressed skull fracture. Paranasal sinuses and mastoid air cells: Mild scattered paranasal sinus disease. Visualized orbits: Orbital contents are intact. IMPRESSION: No acute intracranial process. [facility], , 05/30/2024 2:58 PM
--- NOTE | 2024-05-30 15:21 | CT ---
EXAMINATION TYPE: CT angio head neck DATE OF EXAM: 05/30/2024 3:11 PM COMPARISON: 05/30/2024. CLINICAL INDICATION: Male, 54 years old with history of Off balance; PHH, Dizziness, Off balance. TECHNIQUE: Axially acquired helical CT angiogram of the head and neck was obtained with contrast. Axi al images are supplemented with 3D reconstructions and MIP images which were post-processed at an in dependent workstation. NASCET criteria used. Contrast used:65 ml mL of Isovue 370 with IV Contrast, Oral contrast used: None. CT DLP: 472.8 mGycm, Automated exposure control for dose reduction was used. FINDINGS: CTA HEAD: No evidence of acute intracranial hemorrhage, mass effect, or midline shift. The ventricles, sulci, a nd cisterns are unremarkable. Vertebral arteries: The vertebral arteries are patent. Vertebral artery dominance: Codominant Basilar artery: The basilar artery is intact. The basilar artery bifurcation is normal. Internal Carotid arteries: The cervical, petrous, cavernous and supraclinoid segments are normal. SHARON: Diminutive right A1 segment. Patent with no evidence of aneurysm. ACOM: Present without evidence of aneurysm. MCA: Patent with no evidence of aneurysm. MANAGER DEPARTMENT: Patent with no evidence of aneurysm. PCOM: Hypoplastic bilaterally. Dural sinuses: Patent. CTA NECK: Right Carotid System: The common carotid artery and external carotid artery are patent. The carotid bifurcation demonstrate s no evidence of hemodynamically significant stenosis. The remaining portions of the internal carotid artery demonstrate normal size without significant narrowing. Left Carotid System: The common carotid artery and external carotid artery are patent. The carotid bifurcation demonstrate s no evidence of hemodynamically significant stenosis. The remaining portions of the internal carotid artery demonstrate normal size without significant narrowing. Vertebral arteries are patent without evidence hemodynamically significant stenosis. There is a three-vessel aortic arch. The origins of the great vessels are patent. No evidence of hemo dynamically significant stenosis. IMPRESSION: 1. No evidence of dissection of the cervical internal carotid arteries or vertebral arteries. 2. No any evidence of significant stenosis at the carotid bifurcations. 3. No evidence of intracranial high-grade stenosis or intracranial aneurysm. [facility], , 05/30/2024 3:19 PM
[2024-05-30 15:43] LABS: HCT 43.1 % (39.0-53.0); HGB 15.3 gm/dL (13.0-17.5); MCH 30.2 pg (25.0-35.0); MCV 84.8 fL (80.0-100.0); RBC 5.08 m/uL (4.30-5.90); WBC 9.9 k/uL (3.8-10.6)
[2024-05-30 15:44] LABS: MCHC 35.6 g/dL (31.0-37.0); Platelet Count 588 k/uL (150-450)
[2024-05-30 16:25] VITALS: BP 112/74; PULSE 102
== END 2024-05-30 16:24 | disposition home or self-care (01) ==
LOC: EC 13:01
DX: R42 Dizziness and giddiness (principal); W19.XXXA Unspecified fall, initial encounter
CPT/HCPCS: 36415; 93005; 80053; 84443; 84484; 85025; 85730; 71046; 70496; 70450; 70498; 99284; Q9967

== ENCOUNTER 2024-07-17 13:27 | Emergency (ER) | payer BC ==
[2024-07-17 13:31] VITALS: TEMP 97.6
--- NOTE | 2024-07-17 14:01 | ED ---
Abdominal Pain HPI - General Chief Complaint: Abdominal Pain Stated Complaint: abd pain Time Seen by Provider: 07/17/24 13:37 Source: patient Mode of arrival: ambulatory Limitations: no limitations - History of Present Illness Initial Comments: This patient is a 54-year-old man with history of multiple previous abdominal surgeries related to colitis, including a colostomy and a takedown and multiple abdominal wall hernias. Patient states that for approximately 8 or 9 days now he has been feeling like he needs to urinate frequently including feeling like he needs to urinate again after just finishing. The patient had gone to urgent care today and the practitioner told him that she felt mass in his left lower abdomen. The patient did state that there was some tenderness associated, and he was sent here to have further evaluation. Has not noted fever or chills. No nausea or vomiting. No change in bowel movements. MD Complaint: abdominal pain Onset/Timin -: days(s) Location: LLQ, suprapubic Radiation: none Migration to: no migration Severity: mild Quality: dull Consistency: intermittent Improves With: nothing Worsens With: nothing Associated Symptoms: other - Related Data Previous Rx's Medication Instructions Recorded Acetaminophen Tab [Tylenol Tab] 1,000 mg PO Q6HR PRN #30 tablet 07/17/22 Ibuprofen [Motrin] 600 mg PO Q8HR PRN #30 tab 07/17/22 Meclizine [Antivert] 25 mg PO TID #20 tab 05/30/24 Allergies Allergy/AdvReac Type Severity Reaction Status Date / Time No Known Allergies Allergy Verified 07/17/24 13:31 Review of Systems ROS Statement: Those systems with pertinent positive or pertinent negative responses have been documented in the HPI. ROS Other: All systems not noted in ROS Statement are negative. Constitutional: Denies: fever, chills Respiratory: Denies: cough, dyspnea Cardiovascular: Denies: chest pain, palpitations, edema Gastrointestinal: Reports: abdominal pain. Denies: nausea, vomiting, diarrhea, constipation Genitourinary: Reports: urgency, frequency. Denies: testicular pain, testicular mass Musculoskeletal: Denies: back pain Skin: Denies: rash Neurological: Denies: headache, weakness, numbness Past Medical History Past Medical History: Blood Disorder, GI Bleed, Pulmonary Embolus (PE) Additional Past Medical History / Comment(s): left inguinal hernis, Hx. perforated diverticuli with bowel resection/colostomy and colostomy reversal, Hereditary Spherocytosis(Blood Disorder)-HAD SPLEEN REMOVED TO RESOLVE ISSUE, Pulmonary Embolism after Colostomy Reversal 2015. History of Any Multi-Drug Resistant Organisms: None Reported Past Surgical History: Appendectomy, Back Surgery, Bowel Resection, Cholecystectomy, Hernia Repair, Orthopedic Surgery Additional Past Surgical History / Comment(s): laproscopic lysis of adhesions 05/17/20, Colonoscopies, bowel resection and colostomy due to ruptured d iverticuli, 06/25/15, open colostomy reversal, splenectomy, lumbar laminectomy/discectomy L5-S1, right rotator cuff, left knee arthroscopy. Past Anesthesia/Blood Transfusion Reactions: No Reported Reaction Additional Past Anesthesia/Blood Transfusion Reaction / Comment(s): Pt has received blood without reaction. Past Psychological History: No Psychological Hx Reported Smoking Status: Never smoker Past Alcohol Use History: None Reported Past Drug Use History: None Reported - Past Family History Father Family Medical History: Blood Disorder Additional Family Medical History / Comment(s): Father had Spherocytosis. He had leg ulcers and at age 44 yrs. Mother Additional Family Medical History / Comment(s): Mother has colitis. She is living. Sister(s) Family Medical History: Blood Disorder, Deep Vein Thrombosis (DVT) Additional Family Medical History / Comment(s): Sister had blood clot after surgery and was found to have elevated Factor 8. General Exam Limitations: no limitations General appearance: alert, in no apparent distress Head exam: Present: atraumatic, normocephalic Eye exam: Present: normal appearance. Absent: scleral icterus, conjunctival injection ENT exam: Present: normal oropharynx Neck exam: Present: normal inspection Respiratory exam: Present: normal lung sounds bilaterally. Absent: respiratory distress, wheezes, rales, rhonchi, stridor, accessory muscle use Cardiovascular Exam: Present: regular rate, normal rhythm, normal heart sounds. Absent: systolic murmur, diastolic murmur, rubs, gallop GI/Abdominal exam: Present: soft, tenderness. Absent: distended, guarding, rebound, rigid, mass, pulsatile mass, hernia Extremities exam: Present: normal inspection, normal capillary refill. Absent: pedal edema, calf tenderness Back exam: Present: normal inspection. Absent: CVA tenderness (R), CVA tenderness (L) Neurological exam: Present: alert Skin exam: Present: warm, dry, intact, normal color. Absent: rash Course Vital Signs 07/17/24 07/17/24 13:28 15:45 Temperature 97.6 F Pulse Rate 71 67 Respiratory 18 16 Rate Blood Pressure 143/83 117/79 O2 Sat by Pulse 98 97 Oximetry Medical Decision Making - Medical Decision Making The patient had CT scan of the abdomen pelvis that I interpreted as negative for free air, obstruction, or other acute surgical condition Was pt. sent in by a medical professional or institution (, PA, FEED RESEARCH TECHNICIAN, urgent care, hospital, or penitentiary...) When possible be specific @ -[No] Did you speak to anyone other than the patient for history (EMS, parent, family, police, friend...)? What history was obtained from this source @ -[No] Did you review nursing and triage notes (agree or disagree)? Why? @ -[I reviewed and agree with nursing and triage notes] Were old charts reviewed (outside hosp., previous admission, EMS record, old EKG , old radiological studies, urgent care reports/EKG's, penitentiary records)? Report findings @ -[No old charts were reviewed] Differential Diagnosis (chest pain, altered mental status, abdominal pain women, abdominal pain men, vaginal bleeding, weakness, fever, dyspnea, syncope, headache, dizziness, GI bleed, back pain, seizure, CVA, palpatations, mental health, musculoskeletal)? @ -[Differential Abdominal Pain Men: Appendicitis, cholecystitis, diverticulosis, ischemic bowel, pancreatitis, hepatitis, UTI, gastroenteritis, AAA, incarcerated hernia, bowel obstruction, constipation, inflammatory bowel, hepatitis, peptic ulcer disease, splenic infarction, perforated viscus, testicular torsion, this is not meant to be an all-inclusive list EKG interpreted by me (3pts min.). @ -[As above] X-rays interpreted by me (1pt min.). @ -[None done] CT interpreted by me (1pt min.). @ -[I interpreted as above U/S interpreted by me (1pt. min.). @ -[None done] What testing was considered but not performed or refused? (CT, X-rays, U/S, labs)? Why? @ -[None] What meds were considered but not given or refused? Why? @ -[None] Did you discuss the management of the patient with other professionals (professionals i.e. DrPamela, PA, FEED RESEARCH TECHNICIAN, lab, RT, psych nurse, social worker aide, special weapons and tactics officer, teacher, combat systems officer, correctional casework specialist)? Give summary @ -[No] Was smoking cessation discussed for >3mins.? @ -[No] Was critical care preformed (if so, how long)? @ -[No] Were there social determinants of health that impacted care today? How? (Homelessness, low income, unemployed, alcoholism, drug addiction, transpo rtation, low edu. Level, literacy, decrease access to med. care, [facility], rehab)? @ -[No] Was there de-escalation of care discussed even if they declined (Discuss DNR or withdrawal of care, Hospice)? DNR status @ -[No] What co-morbidities impacted this encounter? (DM, HTN, Smoking, COPD, CAD, Cancer, CVA, ARF, Chemo, Hep., AIDS, mental health diagnosis, sleep apnea, morbid obesity)? @ -[History of previous diverticulitis. History of multiple abdominal surgeries Was patient admitted / discharged? Hospital course, mention meds given and route, prescriptions, significant lab abnormalities, going to OR and other pertinent info. @ -[Patient is 54-year-old man here with nonspecific lower abdominal symptoms. The patient's physical exam unremarkable. Did have CT scan performed given his complex surgical history and there is no acute surgical condition. Discussed appropriate further care and follow-up including with urology. Discussed return parameters. Undiagnosed new problem with uncertain prognosis? @ -[No] Drug Therapy requiring intensive monitoring for toxicity (Heparin, Nitro, In sulin, Cardizem)? @ -[No] Were any procedures done? @ -[No] Diagnosis/symptom? @ -[Low abdominal pain Urinary frequency Acute, or Chronic, or Acute on Chronic? @ -[Acute Uncomplicated (without systemic symptoms) or Complicated (systemic symptoms)? @ -[Uncomplicated Side effects of treatment? @ -[No] Exacerbation, Progression, or Severe Exacerbation? @ -[No] Poses a threat to life or bodily function? How? (Chest pain, USA, DC, pneumonia, PE, COPD, DKA, ARF, appy, cholecystitis, CVA, Diverticulitis, Homicidal, Suicidal, threat to staff... and all critical care pts) @ -[No] All treatments are based on ideal body weight as in ED triage - Lab Data Result diagrams: 07/17/24 14:13 07/17/24 14:13 Lab Results 07/17/24 07/17/24 07/17/24 Range/Units 14:13 14:13 14:28 WBC 7.22 (4.50-10.00) 10*3/uL RBC 5.08 (4.40-5.60) 10*6/uL Hgb 16.3 (13.0-17.0) g/dL Hct 44.2 (39.6-50.0) % MCV 87.0 (80.0-97.0) fL MCH 32.1 H (27.0-32.0) pg MCHC 36.9 (32.0-37.0) g/dL Plt Count 387 (140-440) 10*3/uL MPV 9.0 L (9.5-12.2) fL Immature Gran % (Auto) 0.6 % Neutrophils % 53.5 % Lymphocytes % 28.1 % Monocytes % 12.7 % Eosinophils % 3.7 % Basophils % 1.4 % Immature Gran # 0.04 (0.00-0.04) 10*3/uL Neutrophils # 3.86 (1.80-7.70) 10*3/uL Lymphocytes # 2.03 (0.90-5.00) 10*3/uL Monocytes # 0.92 (0.20-1.00) 10*3/uL Eosinophils # 0.27 (0.04-0.35) 10*3/uL Basophils # 0.10 (0.00-0.10) 10*3/uL Sodium 137 (137-145) mmol/L Potassium 4.6 (3.5-5.1) mmol/L Chloride 104 (98-107) mmol/L Carbon Dioxide 25 (22-30) mmol/L Anion Gap 8 mmol/L BUN 21 H (9-20) mg/dL Creatinine 0.70 (0.66-1.25) mg/dL Est GFR (CKD-EPI)AfAm >90 (>60 ml/min/1.73 sqM) Est GFR (CKD-EPI)NonAf >90 (>60 ml/min/1.73 sqM) Glucose 86 (74-99) mg/dL Calcium 9.5 (8.4-10.2) mg/dL Total Bilirubin 2.0 H (0.2-1.3) mg/dL AST 33 (17-59) U/L ALT 23 (4-49) U/L Alkaline Phosphatase 54 (38-126) U/L Total Protein 7.3 (6.3-8.2) g/dL Albumin 4.3 (3.5-5.0) g/dL Urine Color Light Yellow Urine Appearance Clear (Clear) Urine pH 5.5 (5.0-8.0) Ur Specific Russell 1.023 (1.001-1.035) Urine Protein Negative (Negative) Urine Glucose (UA) Negative (Negative) Urine Ketones Negative (Negative) Urine Blood Negative (Negative) Urine Nitrite Negative (Negative) Urine Bilirubin Negative (Negative) Urine Urobilinogen <2.0 (<2.0) mg/dL Ur Leukocyte Esterase Negative (Negative) Disposition Clinical Impression: Urinary frequency Disposition: HOME SELF-CARE Condition: Good Instructions (If sedation given, give patient instructions): Urinary Urgency and Frequency (DC) Is patient prescribed a controlled substance at d/c from ED?: No Referrals: Dc Wall DO [Primary Care Provider] - 1-2 days Tyrel Toure MD [STAFF PHYSICIAN] - 1-2 days
[2024-07-17 14:23] LABS: Basophils % (A) 1.4 %; Eosinophils # (A) 0.27 10*3/uL (0.04-0.35); Eosinophils % (A) 3.7 %; HCT 44.2 % (39.6-50.0); HGB 16.3 g/dL (13.0-17.0); Lymphocytes # (A) 2.03 10*3/uL (0.90-5.00); Lymphocytes % (A) 28.1 %; MCH 32.1 pg (27.0-32.0); MCHC 36.9 g/dL (32.0-37.0); Monocytes # (A) 0.92 10*3/uL (0.20-1.00); Monocytes % (A) 12.7 %; Neutrophils # (A) 3.86 10*3/uL (1.80-7.70); Neutrophils % (A) 53.5 %; Platelet Count 387 10*3/uL (140-440); RBC 5.08 10*6/uL (4.40-5.60); RDW 12.1 % (11.5-14.5); WBC 7.22 10*3/uL (4.50-10.00)
[2024-07-17 14:35] LABS: Appearance,Urine Clear (Clear); Bilirubin,Urine Negative (Negative); Blood,Urine Negative (Negative); Color,Urine Light Yellow; Glucose,Urine (UA) Negative (Negative); Ketones,Urine Negative (Negative); Leukocyte Esterase,Urine Negative (Negative); Nitrite,Urine Negative (Negative); PH, Urine 5.5 (5.0-8.0); Protein,Urine Negative (Negative); Specific Gravity,Urine 1.023 (1.001-1.035); Urobilinogen,Urine <2.0 mg/dL (<2.0)
[2024-07-17 14:39] LABS: ALT 23 U/L (4-49); African American GFR (CKD) >90 (>60 ml/min/1.73 sqM); Albumin 4.3 g/dL (3.5-5.0); Anion Gap 8 mmol/L; Blood Urea Nitrogen 21 mg/dL (9-20); Calcium 9.5 mg/dL (8.4-10.2); Carbon Dioxide 25 mmol/L (22-30); Chloride 104 mmol/L (98-107); Glucose 86 mg/dL (74-99); Non-African American GFR(CKD) >90 (>60 ml/min/1.73 sqM); Sodium 137 mmol/L (137-145); Total Protein 7.3 g/dL (6.3-8.2)
[2024-07-17 14:41] LABS: Potassium 4.6 mmol/L (3.5-5.1)
[2024-07-17 14:42] LABS: AST 33 U/L (17-59); Alkaline Phosphatase 54 U/L (38-126)
--- NOTE | 2024-07-17 15:12 | CT ---
EXAMINATION TYPE: CT abdomen pelvis w con DATE OF EXAM: 07/17/2024 3:02 PM COMPARISON: Previous CT abdomen/pelvis study 01/24/2024. CLINICAL INDICATION: Male, 54 years old wit h history of LLQ abdominal pain; LLQ pain x few days. TECHNIQUE: Axial CT abdomen pelvis w con;Sagittal and coronal reformats were created on a separate w orkstation. Contrast used:100 ml mL of Isovue 300 with IV Contrast, (none if empty) Oral contrast used: without Oral Contrast (none if empty) CT DLP: 1280.2 mGycm, Automated exposure control for dose reduction was used. FINDINGS: LOWER CHEST: Unremarkable ABDOMEN LIVER: Unremarkable GALLBLADDER AND BILE DUCTS: The gallbladder is surgically absent. PANCREAS: Unremarkable. SPLEEN: Unremarkable. ADRENAL GLANDS: Unremarkable. KIDNEYS AND URETERS: No evidence of hydronephrosis or renal calculus. The ureters are unremarkable. C ircumaortic left renal vein. PELVIS BLADDER: No evidence for wall thickening or mass given limitations of exam. REPRODUCTIVE: Unremarkable. ABDOMEN & PELVIS STOMACH AND BOWEL: Stomach and duodenum are unremarkable. Previous anastomotic changes noted in the r egion of the sigmoid colon. Scattered colonic diverticula without acute diverticulitis. Moderate colo natasha stool burden. No evidence of bowel obstruction. PERITONEUM/RETROPERITONEUM: No evidence of pneumoperitoneum or free fluid. VASCULATURE: No evidence of aortic aneurysm. MUSCULOSKELETAL: No acute osseous abnormalities LYMPH NODES: No gross evidence for lymphadenopathy. SOFT TISSUE/ABDOMINAL WALL: Unremarkable IMPRESSION: No acute abnormality in the abdomen/pelvis or CT findings to explain reported symptoms. [facility] [place], , 07/17/2024 3:10 PM
[2024-07-17 15:46] VITALS: BP 117/79; PULSE 67; RESP 16
== END 2024-07-17 15:46 | disposition home or self-care (01) ==
LOC: EC 13:27
DX: R35.0 Frequency of micturition (principal); Z90.49 Acquired absence of other specified parts of digestive tract; Z93.3 Colostomy status
CPT/HCPCS: 51798; 36415; 80053; 85025; 81003; 74177; 99284; Q9967